=== PATIENT | female | born 1930 | race Caucasian/White ===

== ENCOUNTER 2016-10-03 19:05 | Emergency (ER) | payer MEDICARE ==
[~2016-10-03] VITALS: Ht 160 cm; Wt 90.9 kg
[~2016-10-03 19:05] MED LIST: ALBU2.5V4 INHALATION; ALBU8.5H2 INHALATION; ARFO15VI2 IH; ASPI81TA3 PO; BUDE0.5A2 INHALATION; CALC-1034 PO; CETI10CA PO; CHOL200025 PO; CYAN500T53 SL; DIME25TA2 PO; FAMO20TA4 PO; FLUT9.9S NS; GABA-502 PO; HYDR-4003 PO; LOSA50TA37 PO; MULT1CAP33 PO; POLY17PO6 PO; PRAV40TA PO; PROP20TA5 PO; TIOT18CA3 IH
[2016-10-03 19:10] VITALS: BP 174/90; PULSE 88; RESP 20; O2SAT 98
[2016-10-03] MEDS ORDERED: Nitroglycerin 2% 1 Gm Ointment TOPICAL ONE (19:40)
[2016-10-03] MEDS ORDERED: Albuterol-Ipratropium 3 mL Inhalation Solution NEB ONE (19:40)
--- NOTE | 2016-10-03 19:50 | ED.REPORT ---
HPI-Dyspnea / Wheezing Date of Service Oct 03, 2016 ED Provider: Katherine Kolb MD 86 year old female with a hx of pacemaker, DM, COPD and former smoker who presents to the ED via EMS from urgent care due to progressively worsening SOB for 3-4 days. SOB is exacerbated with any exertion. She has an associated productive cough with clear sputum and nasal congestion. She has lower extremity edema which has been worsening. Pt denies fever, chills, pain and N/V/ D. Pt was seen initially at urgent care where she had a chest x-ray. Concern for bronchitis vs. CHF vs. PNA. Nursing Notes Stated Complaint: COUGH/SENT FROM URGENT CARE Chief Complaint: Respiratory Complaints Nursing Notes Reviewed: Yes Allergies: Coded Allergies: Penicillins (Verified Allergy, Severe, Hives, facial swelling, 06/13/16) Scheduled Albuterol HFA (Proair HFA) 8.5 Gm Hfa.aer.ad 2 PUFFS INHALATION Q4H Arformoterol Tartrate (Brovana) 15 Mcg/2 Ml Vial.neb 15 MCG IH BID Aspirin Chew (Aspirin Chew) 81 Mg Tablet 324 MG PO DAILY Budesonide Neb Soln (Budesonide Neb Soln) 0.5 Mg/2 Ml Neb 0.5 MG INHALATION BID Calcium Carbonate/Vitamin D3 (Calcium 600 + Vit D3 400 Tab) 600 Mg-400 Tablet 1 EACH PO DAILY Cetirizine HCl (Zyrtec) 10 Mg Capsule 10 MG PO QAM Cholecalciferol (Vitamin D3) (Vitamin D3) 2,000 Unit Tablet 2,000 UNIT PO QAM Famotidine (Famotidine) 20 Mg Tablet 20 MG PO BID Gabapentin (Gabapentin) 300 Mg Capsule 300 MG PO QAM Gabapentin (Gabapentin) 300 Mg Capsule 600 MG PO HS Losartan Potassium (Losartan Potassium) 50 Mg Tablet 25 MG PO BID Multivitamin (Multivitamins) 1 Each Capsule 1 EACH PO QAM Polyethylene Glycol 3350 (Miralax) 17 Gm Powd.pack 17 GM PO DAILY Pravastatin (Pravastatin) 40 Mg Tablet 20 MG PO HS Prednisone (PredniSONE) 20 Mg Tablet 40 MG PO DAILY Propranolol HCl (Propranolol HCl) 20 Mg Tablet 40 MG PO BID Tiotropium [place] (Spiriva) 18 Mcg Cap.w.dev 18 MCG IH DAILY at 2PM Scheduled PRN Albuterol Neb Soln (Albuterol Neb Soln) 2.5 Mg/3 Ml Vial.neb 2.5 MG INHALATION Q4H PRN PRN For Shortness of Breath Dimenhydrinate (Dramamine) 25 Mg Tab.chew 50 MG PO BID PRN PRN For Nausea Hydrocodone-Acetaminophen 5-325 mg (Hydrocodone-Acetaminophen 5-325 mg) 1 Each Tablet 1 TABLET PO Q6H PRN PRN For Pain Miscellaneous Medications Cyanocobalamin (Vitamin B-12) (Vitamin B-12) 500 Mcg Tab.subl 1,000 MCG SL Fluticasone Propionate (Flonase Allergy Relief) 50 Mcg/Actuation [place].susp 9.9 ML NS General Time Seen by MD: 19:18 Chief Complaint Shortness of breath Hx Obtained From: Patient, EMS Arrived By: Ambulance Onset Occurred: 4 days ago Symptom Duration: Since onset Location: : None Severity: Current: No pain currently Associated with: Reports: Cough, Leg swelling, Nasal congestion, Denies: Fever Pertinent Negative: Relieved by nothing Recent Healthcare: Recent doctor visit Past Medical History Past Medical History Notes: Rn Office: Dr. Ferreira Past Medical History 1. Coronary artery disease. 2. Chronic obstructive pulmonary disease. 3. Diabetes mellitus, type 2. 4. TIA 2014 5. Hypertension 6. Hyperlipidemia 7. Essential tremor 8. 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 Reports: Stroke Past Surgical History Pacemaker - 2006 Complete cardiac cath PTCA Reports: Appendectomy, Cholecystectomy, Tonsillectomy Reports: Tubal ligation Family History Noncontributory Smoking History Former Smoker Social History Alcohol Use: Denies alcohol use Drug Use: Denies drug use Other Social History: Lives alone, , Local resident Ambulatory Status Independent Review of Systems Basic Review of Systems GI: No abdominal pain, No anorexia, No nausea, No vomiting Neurologic: NL mental status Psychiatric: Normal thought content Constitutional: Denies: Chills, Fever Ears / Nose / Throat: Reports: Nasal congestion Respiratory: Reports: Dyspnea on exertion, Prod cough, clear, Shortness of breath Cardiovascular: Reports: Dyspnea on exertion, Edema, Denies: Chest pain Complete sys rev & neg: except as marked. Physical Exam Initial Vital Signs Vital Signs (First) Date Time Temp Pulse Resp B/P Pulse Ox O2 Delivery O2 Flow Rate FiO2 10/03/16 19:10 36.8 88 20 174/90 98 10/03/16 21:06 Nasal Cannula 2 Initial VS: Reviewed, Vital signs abnormal Head / Eyes: Atraumatic, Normocephalic, PERRL ENT: Mucous membranes moist, Conjunctiva normal, No scleral icterus Abdomen / GI: Soft, Non-tender Extremities: Vascular intact, Neuro intact Skin: Warm, Dry, No cyanosis Neurologic: Alert, Oriented, Nonfocal Psychiatric: Mood/affect normal, Behavior normal, Normal thought content General/Constitutional: Awake, Alert Neck: Supple, Full range of motion Respiratory / Chest: No respiratory distress Wheezing / Retractions: Positive: Wheezing expiratory Rales / Rhonchi: Positive: Rales bilateral bases, Rhonchi diffuse Cardiovascular: Heart rate NL, Regular rhythm, Heart sounds NL, Peripheral circulation NL Interpretation & Diagnostics Lab Results Interpretation Result Diagram: 10/03/16203310/03/162033 Test 10/03/16 20:34 White Blood Count 4.9th/mm3 (3.8-10.1) Red Blood Count 4.11mil/mm3 (3.90-5.20) Hemoglobin 11.5g/dL (12.0-15.6) Hematocrit 36.4% (35.0-46.0) Mean Corpuscular Volume 88.6fL (81-100) Mean Corpuscular Hemoglobin 28.0pg (27.0-35.0) Mean Corpuscular Hemoglobin Concent 31.6% (32.0-37.0) Red Cell Distribution Width 15.0% (12.3-15.4) Platelet Count 149bil/L (150-400) Neutrophils (%) (Auto) 64.0% (40-74) Lymphocytes (%) (Auto) 17.0% (14-46) Monocytes (%) (Auto) 15.2% (4-12) Eosinophils (%) (Auto) 3.2% (0-5) Basophils (%) (Auto) 0.4% (0-3) Sodium Level 139mEq/L (134-144) Potassium Level 4.9mEq/L (3.5-5.2) Chloride Level 103mEq/L (97-108) Carbon Dioxide Level 25mmol/L (18-29) Blood Urea Nitrogen 17mg/dL (8-27) Creatinine 0.92mg/dL (0.57-1.00) Estimat Glomerular Filtration Rate 83mL/min (>59) Glucose Level 111mg/dL (60-99) Calcium Level 9.0mg/dL (8.5-10.1) Magnesium Level 2.1mg/dL (1.6-2.6) Total Bilirubin 0.4mg/dL (0.0-1.2) Aspartate Amino Transf (AST/SGOT) 39U/L (0-50) Alanine Aminotransferase (ALT/SGPT) 34U/L (0-32) Alkaline Phosphatase 239U/L (25-165) Troponin T < 0.010ug/L (0.0-0.011) Pro-B-Type Natriuretic Peptide 116.4pg/mL (0-738) Total Protein 7.2g/dL (6.4-8.4) Albumin 3.4g/dL (3.4-5.0) Hold Chan Top Tube Received (Received) General Lab Results Interp 1: Labs reviewed ECG Interpretation ECG Interpretation: Atrial-sensed ventricular paced rhythm with a rate of 96. Time: 19:34 Interpreted by: ED physician Re-Eval/Medical Decision Med Decision/Clinical Course The patient presents with shortness of breath and symptoms of upper respiratory infection. She was feeling improved with symptomatic treatment here. Differential diagnoses considered were bronchitis, pneumonia, pulmonary embolus , and congestive heart failure. Re-Evaluation/Progress : Time of Eval: 22:32 Patient Status: Condition improved Re-Evaluation/Progress Note: Updated pt of labs, ECG results. Discussed plan for discharge and follow up. All questions addressed. Counseled Regarding: Diagnosis, Lab results, Need for follow-up, When/why to return to ED Discharge & Departure Impression: Primary Impression: URI (upper respiratory infection) URI type: unspecified URI Qualified Code: J06.9 - Acute upper respiratory infection, unspecified Additional Impression: COPD exacerbation Disposition: Home Discharge Condition All VS Reviewed: Yes Condition: Improved Additional Instructions: Take next dose of prednisone tomorrow evening. Make sure you take this with food. Increase your Albuterol nebulizer to up to every 4 hours as needed. Seek care for fever, worsening of breathing, or for any new or concerning symptoms. Make sure you make a follow up appointment with your doctor in 1 week. Rx sent to [facility] Referrals: Jayce Gifford MD (PCP) Scribe Attestation Portions of this note were transcribed by Muriel Chapman. I, (Dr. Kolb) personally performed the history, physical exam and medical decision-making; I reviewed and confirmed the accuracy of the information in the transcribed note. Signed by: Muriel Chapman. 10/03/2016, 9016 copies to: Jayce Gifford MD, Jena M MD Oct 03, 2016 19:50 Muriel Chapman Oct 03, 2016 20:56
[2016-10-03 20:42] LABS: BASOPHILS % (AUTO) 0.4 % (0-3); EOSINOPHILS % (AUTO) 3.2 % (0-5); MONOCYTES % (AUTO) 15.2 % (4-12); Mean Corpuscular Volume 88.6 fL (81-100); Platelet Count 149 bil/L (150-400)
[2016-10-03] MEDS ORDERED: HYDROcodone-APAP 5-325 mg Tablet PO ONE (21:00)
[2016-10-03 21:06] VITALS: BP 137/73; PULSE 84; RESP 19; O2SAT 99
[2016-10-03 21:08] VITALS: PULSE 92; RESP 20; O2SAT 98
[2016-10-03 21:18] LABS: Magnesium 2.1 mg/dL (1.6-2.6)
[2016-10-03 21:28] LABS: TROPONIN T < 0.010 ug/L (0.0-0.011)
[2016-10-03] MEDS ORDERED: Albuterol 2.5 mg/3 mL Inhalation Solution NEB ONE (22:05)
[2016-10-03] MEDS ORDERED: predniSONE 20 mg Tablet PO ONE (22:05)
[2016-10-03 22:14] VITALS: BP 130/54; PULSE 95; RESP 14; O2SAT 96
[2016-10-03] MEDS ORDERED: PRE20 PO (22:38)
[2016-10-03 23:22] VITALS: BP 117/47; PULSE 90; RESP 18; O2SAT 94
== END 2016-10-03 23:23 | disposition home or self-care (01) ==
LOC: SED 19:05
DX: J06.9 Acute upper respiratory infection, unspecified (principal); J44.1 Chronic obstructive pulmonary disease with (acute) exacerbation; I25.10 Atherosclerotic heart disease of native coronary artery without angina pectoris; I10 Essential (primary) hypertension; E11.9 Type 2 diabetes mellitus without complications; Z86.73 Personal history of transient ischemic attack (TIA), and cerebral infarction without residual deficits; Z95.0 Presence of cardiac pacemaker; Z87.891 Personal history of nicotine dependence; Z79.82 Long term (current) use of aspirin; Z88.0 Allergy status to penicillin
CPT/HCPCS: 36415; 80053; 83735; 83880; 84484; 85025; 93005; 94664; 99285; J7620

== ENCOUNTER 2016-11-09 01:32 | Inpatient (IN) | payer MEDICARE ==
[~2016-11-09] VITALS: Ht 160 cm; Wt 90.9 kg
[2016-11-09] VITALS (14 sets, daily range): BP systolic 89–166; BP diastolic 50–95; PULSE 69–106; RESP 16–26; O2SAT 92–97
[~2016-11-09 01:32] MED LIST changes: +PRE20 PO
--- NOTE | 2016-11-09 01:42 | ED.REPORT ---
HPI-Chest Pain 40 and Over Date of Service Nov 09, 2016 ED Provider: Arleth AvilezO. An 86 year old female with a history of COPD, diabetes, hypertension, CVA, and CAD s/p pacemaker placement presents to the ED via EMS with right-sided chest pain onset yesterday. The pain is exacerbated on breathing with radiation to her back and down her right arm. The patient also reports cough. She was seen in the ED one month ago with an upper respiratory infection. Nursing Notes Stated Complaint: RIGHT SIDE PAIN Chief Complaint: Chest Pain-Non Cardiac Nature Nursing Notes Reviewed: Yes Allergies: Coded Allergies: Penicillins (Verified Allergy, Severe, Hives, facial swelling, 11/09/16) Scheduled Arformoterol Tartrate (Brovana) 15 Mcg/2 Ml Vial.neb 15 MCG IH BID Aspirin Chew (Aspirin Chew) 81 Mg Tablet 324 MG PO DAILY Budesonide Neb Soln (Budesonide Neb Soln) 0.5 Mg/2 Ml Neb 0.5 MG INHALATION BID Calcium Carbonate/Vitamin D3 (Calcium 600 + Vit D3 400 Tab) 600 Mg-400 Tablet 1 EACH PO DAILY Cetirizine HCl (Zyrtec) 10 Mg Capsule 10 MG PO QAM Cholecalciferol (Vitamin D3) (Vitamin D3) 2,000 Unit Tablet 2,000 UNIT PO QAM Famotidine (Famotidine) 20 Mg Tablet 20 MG PO BID Fluticasone Propionate (Flonase Allergy Relief) 50 Mcg/Actuation [place].susp 1 SPRAY NS DAILY Gabapentin (Gabapentin) 300 Mg Capsule 300 MG PO QAM Gabapentin (Gabapentin) 300 Mg Capsule 600 MG PO HS Losartan Potassium (Losartan Potassium) 50 Mg Tablet 25 MG PO BID Multivitamin (Multivitamins) 1 Each Capsule 1 EACH PO QAM Pravastatin (Pravastatin) 40 Mg Tablet 20 MG PO HS Propranolol HCl (Propranolol HCl) 20 Mg Tablet 40 MG PO BID Tiotropium [place] (Spiriva) 18 Mcg Cap.w.dev 18 MCG IH DAILY at 2PM Scheduled PRN Albuterol HFA (Proair HFA) 8.5 Gm Hfa.aer.ad 2 PUFFS INHALATION Q4H PRN PRN For Shortness of Breath Albuterol Neb Soln (Albuterol Neb Soln) 2.5 Mg/3 Ml Vial.neb 2.5 MG INHALATION Q4H PRN PRN For Shortness of Breath Dimenhydrinate (Dramamine) 25 Mg Tab.chew 50 MG PO BID PRN PRN For Nausea Hydrocodone-Acetaminophen 5-325 mg (Hydrocodone-Acetaminophen 5-325 mg) 1 Each Tablet 1 TABLET PO Q6H PRN PRN For Pain Miscellaneous Medications Cyanocobalamin (Vitamin B-12) (Vitamin B-12) 500 Mcg Tab.subl 1,000 MCG SL General Time Seen by MD: 01:42 Chief Complaint Chest pain Hx Obtained From: Patient Arrived By: Ambulance Sudden in Onset?: No Onset Occurred: Yesterday Symptom Duration: Since onset Location: : Chest right Quality: Painful Radiation: : Arm right: Back Severity: Current: Moderate Severity: Maximum: Moderate Associated with: Reports: Cough, non-productive, Denies: Fever Exacerbated by: Deep breath Pertinent Negative: Relieved by nothing Context Related History: Reports: Acute coronary syndrome Recent Healthcare: Recent doctor visit Similar Sx Previous: Yes Past Medical History Past Medical History Notes: Negative Assembler: Dr. Ferreira Past Medical History 1. Coronary artery disease. 2. Chronic obstructive pulmonary disease. 3. Diabetes mellitus, type 2. 4. TIA 2014 5. Hypertension 6. Hyperlipidemia 7. Essential tremor 8. 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 Reports: Stroke Past Surgical History Pacemaker - 2006 Complete cardiac cath PTCA Reports: Appendectomy, Cholecystectomy, Tonsillectomy Reports: Tubal ligation Family History Noncontributory Smoking History Former Smoker Social History Alcohol Use: Denies alcohol use Drug Use: Denies drug use Other Social History: Lives alone, , Local resident Ambulatory Status Independent Review of Systems Respiratory: Reports: Non-productive cough, Denies: Shortness of breath Cardiovascular: Reports: Chest pain (Right) GI: Denies: Vomiting Musculoskeletal: Reports: Back pain (Right), Extremity pain (Right arm) Complete sys rev & neg: except as marked. Physical Exam Initial Vital Signs Vital Signs (First) Date Time Temp Pulse Resp B/P Pulse Ox O2 Delivery O2 Flow Rate FiO2 11/09/16 01:43 37.3 106 22 166/75 93 Room Air Initial VS: Reviewed Head / Eyes: Atraumatic, Normocephalic ENT: Conjunctiva normal, No scleral icterus Neck: Supple, Full range of motion Skin: Warm, Dry, No cyanosis Neurologic: Alert, Oriented, Nonfocal Psychiatric: Mood/affect normal, Behavior normal, Normal thought content General/Constitutional: Awake, Alert, No acute distress Respiratory / Chest: Breath sounds NL, Breath sounds = bilat, No respiratory distress Chest Wall / Ribs: Positive: Chest tender upper L Splinting with respirations Cardiovascular: Regular rhythm, Heart sounds NL Heart Rate / Rhythm: Positive: Tachycardia Abdomen: Soft, Non-tender Interpretation & Diagnostics Interpretation & Diagnostics: INFLUENZA NEGATIVE Lab Results Interpretation Result Diagram: 11/09/16 0530 11/09/16 0157 Test 11/09/16 01:57 Prothrombin Time 10.7sec (8.1-12.5) Prothromb Time International Ratio 1.00ratio D-Dimer 7.5mg/L (<0.50) Sodium Level 134mEq/L (134-144) Potassium Level 4.8mEq/L (3.5-5.2) Chloride Level 97mEq/L (97-108) Carbon Dioxide Level 25mmol/L (18-29) Blood Urea Nitrogen 15mg/dL (8-27) Creatinine 0.92mg/dL (0.57-1.00) Estimat Glomerular Filtration Rate 83mL/min (>59) Glucose Level 172mg/dL (60-99) Calcium Level 8.7mg/dL (8.5-10.1) Magnesium Level 1.9mg/dL (1.6-2.6) Total Bilirubin 0.6mg/dL (0.0-1.2) Aspartate Amino Transf (AST/SGOT) 54U/L (0-50) Alanine Aminotransferase (ALT/SGPT) 55U/L (0-32) Alkaline Phosphatase 175U/L (25-165) Troponin T 0.010ug/L (0.0-0.011) Total Protein 7.4g/dL (6.4-8.4) Albumin 3.5g/dL (3.4-5.0) ECG Interpretation ECG Interpretation: Atrial-sensed ventricular-paced rhythm rate 103 Time: 01:56 Interpreted by: ED physician Rhythm Strip Interpretation : Rhythm Strip Interpretation: Intraventricular conduction delay Time: 02:00 Rhythm Strip Interpretation: Interpreted by me, Sinus tachycardia X-Ray Chest Interpretation Chest Xray Interpretation: Chronic COPD changes View: Portable, 1 view Interpretation / Wet Read by: Wet read ED physician Re-Eval/Medical Decision Med Decision/Clinical Course Patient presents with pleuritic right-sided chest pain. She is found to have tachycardic and splinting on respirations. Chest wall is not very tender. X- ray looks like chronic COPD. She does have a markedly elevated d-dimer. CT scan is consistent with pulmonary embolism. No contraindications to heparin. Heparin will be ordered. Plan for hospital admission. Currently tolerating a pulmonary embolism hemodynamically well. She is not hypotensive or hypoxic. Discharge & Departure Shift Change Sign-Out Laboratory Evaluation: Lab evaluation discussed Response to Therapy: Improved Primary Impression: Pulmonary embolism Pulmonary embolism type: other Chronicity: acute Acute cor pulmonale presence: without acute cor pulmonale Qualified Code: I26.99 - Other pulmonary embolism without acute cor pulmonale Discharge Condition All VS Reviewed: Yes Condition: Stable Referrals: Jayce Gifford MD (PCP) Scribe Attestation Portions of this note were transcribed by Brooke Costello. I, Dr. Martin, personally performed the history, physical exam, and medical decision-making; I reviewed and confirmed the accuracy of the information in the transcribed note. Signed by: Reji Garg, 11/09/2016, 03:17 copies to: Jayce Gifford MD, Todd P DO Nov 09, 2016 01:42 BROOKE COSTELLO Nov 09, 2016 01:53 View: Portable, 1 view Interpretation / Wet Read by: Vicente singh ED physician Re-Eval/Medical Decision Med Decision/Clinical Course Patient presents with pleuritic right-sided chest pain. She is found to have tachycardic and splinting on respirations. Chest wall is not very tender. X- ray looks like chronic COPD. She does have a markedly elevated d-dimer. CT scan is consistent with pulmonary embolism. No contraindications to heparin. Heparin will be ordered. Plan for hospital admission. Currently tolerating a pulmonary embolism hemodynamically well. She is not hypotensive or hypoxic. Discharge & Departure Shift Change Sign-Out Laboratory Evaluation: Lab evaluation discussed Response to Therapy: Improved Primary Impression: Pulmonary embolism Pulmonary embolism type: other Chronicity: acute Acute cor pulmonale presence: without acute cor pulmonale Qualified Code: I26.99 - Other pulmonary embolism without acute cor pulmonale Discharge Condition All VS Reviewed: Yes Condition: Stable Referrals: Jayce Gifford MD (PCP) Scribe Attestation Portions of this note were transcribed by Brooke Costello. I, Dr. Martin, personally performed the history, physical exam, and medical decision-making; I reviewed and confirmed the accuracy of the information in the transcribed note. Signed by: Reji Garg, 11/09/2016, 03:17 copies to: Jayce Gifford MD, Todd P DO Nov 09, 2016 01:42 BROOKE COSTELLO Nov 09, 2016 01:53
[2016-11-09 02:10] LABS: BASOPHILS % (AUTO) 0.1 % (0-3); EOSINOPHILS % (AUTO) 0.6 % (0-5); MONOCYTES % (AUTO) 14.2 % (4-12); Mean Corpuscular Hemoglobin 27.5 pg (27.0-35.0); Mean Corpuscular Volume 86.4 fL (81-100); NEUTROPHILS % (AUTO) 73.2 % (40-74); Platelet Count 154 bil/L (150-400)
[2016-11-09 02:37] LABS: TROPONIN T 0.01 ug/L (0.0-0.011)
[2016-11-09 02:42] LABS: D-DIMER 7.5 mg/L (<0.50)
[2016-11-09 02:48] LABS: Magnesium 1.9 mg/dL (1.6-2.6)
[2016-11-09] MEDS ORDERED: Heparin 5,000 Unit/mL Inj IVPUSH PRN (03:35)
[2016-11-09] MEDS: Heparin 25K Unit/500mL 0.45 NS 25,000 UNIT in IV Premix 1 EACH IV SCH (04:00)
[2016-11-09] MEDS ORDERED: Alum-Mag Hydrox-Simeth 30 mL Suspension PO PRN (04:25)
[2016-11-09] MEDS ORDERED: Polyethylene Glycol (PEG) 17 Gm Powder PO PRN (04:25)
[2016-11-09] MEDS ORDERED: Ondansetron 2 mg/mL 2 mL Inj IVPUSH PRN (04:25)
--- NOTE | 2016-11-09 05:19 | PCM.HPMED ---
Subjective Date of Service Nov 09, 2016 Primary Provider: Admitting Physician: Damien Perez MD Primary Care Physician: Jayce Gifford MD Attending Physician: Damien Perez MD Chief Complaint: Right sided pain History of Present Illness: Patient is a pleasant 86-year-old female with COPD, type 2 diabetes mellitus, hypertension and CAD presenting with right sided thoracic pain. Patient reports onset of the pain yesterday (11/08/2016) at approximately 20:00. The patient states the pain is just inferior to her right chest and exacerbated with breathing and movement. Patient reports a cough since October with production of thick, off-yellow sputum. The pain prompted the patient to summon EMS and she was brought to [facility] ED for further evaluation. In the ED, CT chest angiogram was performed and identified pulmonary emboli in the right lower lobe involving several segmental branches and the right lower lobe pulmonary artery. Patient denies hemoptysis, chest pain, shortness of breath, fever, chills, worsening lower extremity swelling. Patient reports being more sedentary over the past several months due to right hip pain. She is scheduled to undergo a hip replacement at the end of this month. Patient denies family history of coagulopathy and denies any long car rides or airplane flights. In the ED, vitals: temp 37.3, HR 106, RR 22 satting 93%, BP 166/75. Notable labs : mild transaminitis with AST 54, ALT 55 and alkaline phosphatase 175. D-dimer 7.5. Review of Systems: Review of Systems: A comprehensive review of systems was conducted with the patient and found to be negative except as above in the History of Present Illness. Allergies Coded Allergies: Penicillins (Verified Allergy, Severe, Hives, facial swelling, 11/09/16) Home Medications Albuterol 2 puffs every 4-6 hours PRN ASA 325mg daily Brovana 15mcg/2mL inhale BID Calcium 600 + Vitamin D3 600mg daily Famotidine 20mg BID Neurontin 300mg in AM, 600mg QHS Losartan 25mg daily Pravastatin 20mg daily Propranolol 40mg BID Spiriva 18mcg inhaled daily Vitamin B12 1000mcg daily Vitamin D3 2000u daily Zyrtec 10mg daily PMH COPD Type 2 diabetes mellitus Hypertension History of CVA Coronary artery disease Third-degree AV block s/p PPM . Surgical History Pacemaker placement Appendectomy Tonsillectomy Tubal ligation Cholecystectomy . Family History Mother at 74 years old from cardiac cause Father at 86 years old from unknown cause Social History Occupation: Former retail visual merchandiser Hx Alcohol Use: No Hx Substance Use: No Hx Tobacco Use: No Smoking Status: Former Smoker Living Arrangement: Alone Exam Vital Signs Vital Sign - Last Date Time Temp Pulse Resp B/P Pulse Ox O2 Delivery O2 Flow Rate FiO2 11/09/16 04:05 97 22 120/51 95 Room Air 11/09/16 01:43 37.3 Exam General: [id number]-[id number] distress, well-developed, well-nourished, appropriately interactive HEENT: Normocephalic, atraumatic. External ears without defect. Pupils equal, round, and reactive to light. Anicteric sclerae, moist conjunctivae, and no lid lag. Oropharynx free of erythema and cobble stoning with moist mucosa. Missing upper teeth. Lower with several missing teeth. Neck: Supple. No lymphadenopathy or thyromegaly. Cardiovascular: Distant heart sound. Regular rate and rhythm with no murmurs, rubs, or gallops appreciated Pulmonary: Bibasilar crackles. Patient grimaces from exquisite pain to right thorax on inspiration Abdomen: Bowel tones present. Soft, nontender, nondistended. Extremities: Mild lower extremity pitting edema just above the ankles bilaterally. Skin: Several spots of ecchymosis on upper extremities bilaterally. Normal temperature, turgor, and texture; no rash, ulcers, or subcutaneous nodules appreciated. Neurological: Cranial nerves grossly intact. Psychiatric: Normal mood and affect. Alert and oriented to person, place, and time. Lab and Diagnostics Result Diagram: 11/09/16 01511/09/16 0157 X-Rays, CTs and MRIs Exam date: 11/09/2016 CT PULMONARY ANGIOGRAM CONCLUSION: Pulmonary emboli in the right lower lobe involving several segmental branches and the right lower lobe pulmonary artery. Minimal associated right pleural effusion. Assessment & Plan Patient is a pleasant 86-year-old female with COPD, type 2 diabetes mellitus, hypertension and CAD presenting with right sided thoracic pain and admitted for pulmonary emboli. 1. Acute right sided pulmonary emboli. Present on admission. Active -CT chest angio shows pulmonary emboli in the right lower lobe involving several segmental branches and the right lower lobe pulmonary artery -Uncertain etiology but likely provoked from being sedentary due to hip pain and recent URI -Heparin gtt PE/DVT protocol 2. Transaminitis and elevated alkaline phosphatase, chronic. Present on admission. Active -Outpatient records show mild elevations since 2010 -Uncertain etiology -Continue to follow with CMP 3. Non-insulin using Type 2 diabetes mellitus. Present on admission -HbA1c 6.4% (05/10/2016) -Bedside blood glucose checks 4. Coronary artery disease, chronic. Present on admission -Continue home dose statin, ASA 5. Hypertension, chronic. Present on admission -Continue home antihypertensives 6. COPD, chronic. Present on admission -Continue home inhaler and nebulizers Patient Status: Patient is admitted under inpatient status with expected length of stay greater than 2 midnights due to severity of presenting symptoms, risk of adverse event, and complexity of treatment plan. VTE Prophylaxis: Other (Heparin gtt) Resuscitation Status: CPR: Attempt Resuscitation Attending Statement The patient was seen and examined together with Dr. Nunez on 11/09 and I agree with the history, exam and plan as outlined in the note above. Alberto Nunez DO Nov 09, 2016 04:41 Damien Perez MD Nov 09, 2016 19:04
[2016-11-09] MEDS: HYDROmorphone 1 mg/mL Inj IVPUSH PRN (05:43)
[2016-11-09 06:17] LABS: BASOPHILS % (AUTO) 0.2 % (0-3); EOSINOPHILS % (AUTO) 0.4 % (0-5); MONOCYTES % (AUTO) 13.6 % (4-12); Mean Corpuscular Hemoglobin 27.2 pg (27.0-35.0); Mean Corpuscular Volume 87.2 fL (81-100); NEUTROPHILS % (AUTO) 72.9 % (40-74); Platelet Count 146 bil/L (150-400)
--- NOTE | 2016-11-09 07:03 | NUR ---
Admit note: Pt admitted from ER, able to ambulate to bed with one assist. Reporting pain to right chest at "15/10". Morphine was given in the ER and not effective per pt. Dilaudid was ordered and given x1, pt stated maybe a little better, "not much"; but was able to fall asleep for brief periods, with sharp pain awaking her. Heparin gtt infusing, started in the ER. Alert and oriented x3. Oriented to room and call light, instructed to call for needs.
[2016-11-09] MEDS: Pantoprazole 20 mg ER24 Tablet PO SCH ×2 (07:37→17:06)
[2016-11-09] MEDS: Calcium Carbonate (Oyster Shell) 500 mg Tablet PO SCH (07:37)
[2016-11-09] MEDS: HYDROcodone-APAP 5-325 mg Tablet PO PRN ×3 (07:51→19:33)
[2016-11-09] MEDS: Arformoterol 15 mCg/2 mL Inhalation Solution NEB SCH ×2 (08:09→20:31)
[2016-11-09] MEDS ORDERED: Tiotropium 18mcg/Cap 5 Capsule Inhaler Kit INHALATION SCH (08:30)
--- NOTE | 2016-11-09 09:36 | DRSVH ---
PROCEDURE: X-RAY CHEST ONE VIEW, PORTABLE ([id number]) INDICATIONS: chest pain, right sided TECHNIQUE: One view of the chest was acquired. COMPARISON: [facility], CR, XR CHEST 1VW (PORTABLE), 03/31/2016, 15:52. FINDINGS: Surgical changes and devices: Stable positioning of dual chamber cardiac pacer. Lungs and pleura: No pleural effusions or pneumothorax. Lungs are clear. Mediastinum: Mediastinal contours appear normal. Heart size is normal. Bones and chest wall: No suspicious bony lesions. Overlying soft tissues appear unremarkable. IMPRESSION: No acute cardiopulmonary disease. Dictated by: Charan Garcia RRA Interpreted: Bree Valencia MD on 11/09/2016 at 9:35 Transcribed by: DESTINEY on 11/09/2016 at 9:35 Approved by: Bree Valencia MD, PhD on 11/09/2016 at 17:05
--- NOTE | 2016-11-09 09:42 | DRSVH ---
PROCEDURE: CT ANGIO CHEST PULMONARY EMBOLISM ([id number]) INDICATIONS: pleuritic chest pain TECHNIQUE: After the administration of intravenous contrast, 2 mm thick sections acquired from the pulmonary api jesusita to the posterior costophrenic angles. 3-dimensional maximum intensity projection (MIP) coronal a nd sagittal reformats were then acquired through the thorax. For radiation dose reduction, the follo wing was used: automated exposure control, adjustment of mA and/or kV according to patient size. COMPARISON: None. FINDINGS: Image quality: Excellent. Pulmonary arteries: There are intraluminal filling defects involving the right lower lobe lobe artery and segmental arteries, consistent with pulmonary embolism. Lungs and pleura: There is a small right pleural effusion. There is a 5 mm groundglass nodule in the right middle lobe. No pleural effusions or pneumothorax. Central and peripheral airways are patent. Mediastinum: Heart size is mildly increased. There is a small pericardial effusion. No mediastinal or hilar adenopathy. Thoracic aorta is normal in caliber and enhancement. Esophagus is normal in ca liber, without hiatal hernia. Bones and chest wall: No suspicious bony lesions. Ribs and thoracic spine appear intact throughout. Thyroid gland is heterogeneous. No axillary or supraclavicular adenopathy. Abdomen: Visualized upper abdominal solid organs appear normal in the early arterial phase of enhanc ement. IMPRESSION: 1. Central pulmonary emboli involving the right lower lobe lobar artery and segmental arteries. 2. A small right pleural effusion. 3. A 5 mm groundglass nodule in the right middle lobe. 4. Mild cardiomegaly and small pericardial effusion. No significant discrepancy with the shift superintendent radiology preliminary report. Fleischner Society criteria for SUB-SOLID lung nodule followup. Solitary pure ground-glass nodules5 mm or lessNo followup needed. >5 mm3 mo follow-up CT to confirm persistence. Then annual CT for 3 years. Part-solid nodules3 mo follow-up CT to confirm persistence . If persistent with solid component <5 mm, annual CT for at least 3 years. If solid component is 5 mm or more, biopsy or surgical resection. Consider PET-CT for lesions > 10 mm. Multiple sub-solid nodulesPure ground glass nodules [address] at 2 and 4 years. Pure ground glass nodules >5 mm without dominant lesion. [address] to confirm persistence, then annual followup CT for at least 3 years. Dominant nodule(s) with part-solid or solid component. [address] to confirm persistence. If persistent, consider biopsy or surgical resection, wing if lesions have >5 m m solid component. Dictated by: Travis Vasquez M.D. on 11/09/2016 at 9:29 Approved by: Travis Vasquez M.D. on 11/09/2016 at 9:41
--- NOTE | 2016-11-09 13:28 | PCM.CONPHA ---
Subjective Right sided pain Reason for Pharmacy Consult: Anticoagulation Management Assessment/Plan Assessment/Plan Warfarin Management by Pharmacy Indication: PE CHADS2-VASc: 6 Home Dose: New Start INR Goal: 2-3 Duration: Unknown Wt: 90.9 kg Anticoagulation Trends Lab Date Result Dose INR 11/09/16 1.00 Therapeutic bridge therapy: Heparin gtt Assessment/Plan - New start this admission with for PE. On therapeutic bridge with heparin gtt. -Will initiate warfarin 2.5 mg tonight. I chose this dose given pts age, aspirin use, CVA hx, and slight increase in LFTs. -Pharmacy to monitor INR/CBC/signs of bleeding while inpatient. Thanks, Paco Zelaya Pharm.D. Paco Zelaya Nov 09, 2016 13:28
--- NOTE | 2016-11-09 13:55 | NUR ---
Social Work- Initial Assessment Data: See Initial Assessment. Pt is a 86 year old female who was admitted 11/09/16 for PE per H&P. Pt's insurance is Medicare and SSEV Supplement and PCP is Dr. Balta MD. EMR Reviewed. SW met with pt at bedside to discuss discharge planning, SW role explained. Pt resides in apartment alone where she remains independent with ADLs. Pt receives driving assistance from family/friends as well as [employer]. Pt has no HH or SNF history. Pt has no shelter care or VA benefits. Pt has not completed DPOA/Advanced Directive paperwork, SW explained DPOA/AD and encouraged a completed copy to be brought into the hospital. SW provided phone number and plan on white board. SW will continue to follow as needs arise. Assessment: Pt who is independent at baseline. Plan: Pt likely to discharge home with no HH. SW continue to follow STEW Vyas Addendum: 11/09/16 at 1405 by GERARDO ROSALES Amended: Links added.
[2016-11-09] MEDS: Tiotropium 18mcg/Cap 5 Capsule Inhaler Kit INHALATION SCH (14:00)
--- NOTE | 2016-11-09 16:39 | DRSVH ---
[facility] [address] [place] [place] [address] Echocardiogram Report Name: DINORA HUSSEIN JStudy Date: 11/09/2016 Height: 63 in Hospital Exam Location: [facility] Weight: 200 lb Gender: Female BSA: 1.9 m2 : 1930 Age: 86 yrs BP: 89/51 mmHg Reason For Study: PULMONARY EMBOLISM Ordering Physician: HOSPITALIST [facility] Performed By: Ozzie Emerson Referring Physician: Channing HINES Interpretation Summary 1) Normal left ventircular thickness, size, wall motion, and systolic function (EF 60-65%). 2) Upper normal right ventricular size with low normal systolic function. 3) Mild to moderate tricuspid regurgitation. 4) Pulmonary hypertension present, systolic pulmonary artery pressure estimated at 59 mmHg assuming a right atrial pressure of 8 mm Hg. 5) Compared to the Echo on 06/23/2015, pulmonary artery pressures are higher on today's study. Procedure: A two-dimensional transthoracic echocardiogram with color flow and Doppler was performed. The study quality was technically good. Comparison is made with the echocardiogram of 06/23/15. The suprasternal notch views were difficult to obtain and are suboptimal in quality. The patient has a paced rhythm. Left Ventricle: The left ventricle is normal in size. There is normal left ventricular wall thickness. The ejection fraction is estimated to be 60-65%. There are no focal wall motion abnormalities. Right Ventricle: The right ventricle is at the upper limits of normal in size. Right ventricular systolic function is at the lower limits of normal. Atria: Both atria are mildly dilated. The interatrial septum is intact with no evidence for an atrial septal defect. Mitral Valve: There is mild to moderate mitral annular calcification. There is trace mitral regurgitation. Aortic Valve: The aortic valve is trileaflet. The aortic valve is slightly calcified. The aortic valve opens well. There is no aortic valve stenosis. No aortic regurgitation is present. Tricuspid Valve: The tricuspid valve is normal in structure and function. There is mild to moderate tricuspid regurgitation. The right ventricular systolic pressure is estimated at 59 mmHg assuming a right atrial pressure of 8 mm Hg. Pulmonic Valve: The pulmonic valve is normal in structure and function. There is trace pulmonic regurgitation. Great Vessels: The aortic root is normal size. The dimensions of the ascending aorta are normal. The pulmonary artery is normal size. The IVC is of normal diameter and collapses less than 50% with a sniff. This suggests a right atrial pressure of 8 mm Hg. Pericardium/ Pleura There is no pericardial effusion. There is no pleural effusion. MMode/2D Measurements & Calculations LVIDd: 4.3 cm LA dimension: 4.4 cm RA long axis Ao root diam LVIDs: 2.2 cm FS: 49.4 % LA A2 area: 23.9 cm RA area Aortic Jxn EPSS: 0.63 cm LA A4 area: 23.0 cm IVSd: 0.84 cm LA length (vol): 6.1 cm : 22.6 cm asc Aorta LVPWd: 0.88 cm LA vol: 77.0 ml RA vol: 75.6 mlDiam: 3.0 cm LA vol index RA : 39.1 mm2 IVC diam: 2.1 cm LV powell. diameter/BSA LV sys. diameter/BSA RVD1 (basal) RVD2 (mid) (cm/m^2): 2.2 (cm/m^2): 1.1 : 4.1 cm Doppler Measurements & Calculations Ao V2 max MV E max eusebio MV E/A: 0.91 TR max eusebio : 167.1 cm/sec : 113.0 cm/sec Med Peak E' Eusebio : 355.8 cm/sec Ao max P.2 mmHg MV A max eusebio TR max PG Ao mean P.7 mmHg : 124.7 cm/sec E/E' med: 24.9 : 50.6 mmHg MV P1/2t: 74.4 msec Lat Peak E' Eusebio PA V2 max : 66.2 cm/sec E/E' lat: 21.9 PA mean PG E/e' average PA Accel Time Pulm A Revs Dur : 0.05 sec MV A dur: 0.16 sec MV V2 mean MV P1/2t max eusebio Ao V2 mean PA V2 mean : 88.7 cm/sec : 125.9 cm/sec : 49.7 cm/sec MV mean P.4 mmHg Ao V2 VTI: 40.0 cmPA pr(Accel) MV V2 VTI: 36.9 cm MVA(P1/2t): 3.0 cm2 : 56.5 mmHg MV dec time: 0.25 sec Pulm A Revs Dur - MV A Dur: -0.01 msec Reading Physician:04:38 PM
--- NOTE | 2016-11-09 17:39 | NUR ---
Heparin Drip, PTT PTT draw critically high this am x2. Heparin drip stopped per protocol, hospitalist team aware. Drip started again at approx 1pm at lower rate per protocol. Family updated on plan. Next PTT draw @ 1900.
[2016-11-09] MEDS: Albuterol 2.5 mg/3 mL Inhalation Solution NEB PRN (19:27)
[2016-11-09] MEDS ORDERED: Codeine-guaiFENesin 5 mL Syrup PO PRN (20:15)
[2016-11-09] MEDS: guaiFENesin 600 mg ER12 Tablet PO SCH (20:30)
--- NOTE | 2016-11-09 20:36 | NUR ---
Pain Pt had chest pain rated at an 8 to her right side. Given 2 tabs vicodin. Pt later rated her pain at a 5. She has a constant cough which exacerbates her pain. Given 2mg IV morphine. Requested letty and jim from MD for her cough. This was ordered. Pt currently resting quietly. BP medications not given due to BP 100/50 manual. Pt denies any symptoms of dizziness Bed alarm on. Care ongoing
[2016-11-10] VITALS (11 sets, daily range): BP systolic 88–122; BP diastolic 48–62; PULSE 71–113; RESP 18–24; O2SAT 84–98
[2016-11-10] MEDS: Heparin 25K Unit/500mL 0.45 NS 25,000 UNIT in IV Premix 1 EACH IV SCH (00:42)
[2016-11-10] MEDS: HYDROcodone-APAP 5-325 mg Tablet PO PRN ×5 (01:05→21:04)
[2016-11-10] MEDS: guaiFENesin 600 mg ER12 Tablet PO SCH ×2 (01:05→21:08)
[2016-11-10] MEDS ORDERED: Codeine-guaiFENesin 10 mL Syrup PO PRN (01:23)
--- NOTE | 2016-11-10 01:24 | NUR ---
Resp Pt up to BSC to void. When she returned to bed she said, "I can't breathe." Lungs are tight/wheezes throughout. Breathing is labored. RT called for PRN albuterol treatment. Pt sitting up in bed on 2 pillows. Will cont to monitor
[2016-11-10] MEDS: Albuterol 2.5 mg/3 mL Inhalation Solution NEB PRN ×2 (01:51→20:21)
[2016-11-10 06:47] LABS: BASOPHILS % (AUTO) 0.2 % (0-3); EOSINOPHILS % (AUTO) 0.4 % (0-5); MONOCYTES % (AUTO) 15.3 % (4-12); Mean Corpuscular Hemoglobin 27.7 pg (27.0-35.0); Mean Corpuscular Volume 88.5 fL (81-100); NEUTROPHILS % (AUTO) 71.3 % (40-74); Platelet Count 126 bil/L (150-400)
[2016-11-10 07:08] LABS: INR 1.12 ratio
[2016-11-10] MEDS: Arformoterol 15 mCg/2 mL Inhalation Solution NEB SCH ×2 (07:25→20:21)
[2016-11-10 08:22] LABS: APPEARANCE,URINE HAZY (CLEAR,HAZY); COLOR,URINE YELLOW (YELLOW); OCCULT BLOOD,URINE NEGATIVE (NEGATIVE); UROBILINOGEN,URINE 0.2 mg/dL (NORMAL)
[2016-11-10] MEDS: Pantoprazole 20 mg ER24 Tablet PO SCH ×2 (09:29→21:08)
[2016-11-10] MEDS: Calcium Carbonate (Oyster Shell) 500 mg Tablet PO SCH (09:29)
[2016-11-10] MEDS: Tiotropium 18mcg/Cap 5 Capsule Inhaler Kit INHALATION SCH (09:30)
[2016-11-10] MEDS: 0.9% Sodium Chloride 1,000 ML IV SCH ×2 (11:15→21:08)
--- NOTE | 2016-11-10 12:12 | PCM.PHAPRO ---
Progress Right sided pain WARFARIN MANAGEMENT PER PHARMACY [facility] DFF DFF Date Nov 10 INR 1.00 1.12 INR change 0.12 Warf Dose 2.5 MG 2.5 Day 2 of warfarin initiation. Will continue warfarin 2.5 mg this evening. May consider increasing dose if trend not significant tomorrow. Pharmacy will continue to monitor. Paco Zelaya, PharmD Paco Zelaya Nov 10, 2016 12:12
--- NOTE | 2016-11-10 13:58 | NUR ---
Student Nurse Note Pt Heparin drip with arrival to shift was infusing at 14U/kg/hr. AM laboratory results revealed aPTT of 106.3, which per heparin protocol require titration down to 12U/kg/hr. Pt platelet count is currently 126 and is trending slightly down from previous lab draw. Pt has not void since beginning of shift, creatinine was 1.39. NS has been started at 100mL/hr. Pt has been hypotensive with BP of 92/58, but 2 hrs after fluid administration and BP medications with held was 122/54. Pt has been complaining of pain of 5/10 in the right flank and nausea. PRN Zofran and Vicodin used to manage symptoms. Pt is currently V-paced 70-80's per telemetry. Currently waiting of swallow eval for pt due to complaints of dysphagia. Plan is to monitor fluids, monitor coagulation and respiratory status. Addendum: 11/10/16 at 1430 by ANASTACIA MCKEON 1430 - New aPTT draw is 109.5. Per heparin protocol, infused stopped for 30 minutes and titrated down to 9U/kg/hr, next draw in 6 hrs ordered. Bed low and alarm set.
--- NOTE | 2016-11-10 16:06 | PCM.PNMED ---
Subjective Date of Service Nov 10, 2016 Subjective Patient reports that she is doing better than yesterday. She states that last night she got a very good night sleep, better than she has in many months. Patient reports that she continues to have pain on her right side when she takes a deep breath. Patient denies any pain when breathing normally, or at rest. Patient denies any chest pain. Patient denies any shortness of breath at baseline. Patient denies any nausea, vomiting, diarrhea, constipation, headache. Patient reported to nurse that she was experiencing some dysphagia and difficulty swallowing, she did not mention this to me when I spoke with her. Exam Vital Signs Vital Sign - Last Date Time Temp Pulse Resp B/P Pulse Ox O2 Delivery O2 Flow Rate FiO2 11/10/16 13:50 36.3 71 19 122/54 95 Nasal Cannula 2.00 Intake and Output 11/09/16 11/09/16 11/10/16 Cumulative From/Thru 15:00 23:00 07:00 11/09/16 01:43 - 11/10/16 06:30 Intake Total 500 ml 671 ml 1171 ml Output Total 600 ml 600 ml Balance -100 ml 671 ml 571 ml Intake Oral 500 ml 450 ml 950 ml IV Total 221 ml 221 ml Output Urine Total 600 ml 600 ml # Voids 1 1 Exam General: No acute distress, well-developed, well-nourished, appropriately interactive HEENT: Nasal cannula in place. Normocephalic, atraumatic. External ears without defect. Pupils equal, round, and reactive to light and accommodation. Moist conjunctivae. Oropharynx with moist mucosa. Neck: Supple with full range of motion.No lymphadenopathy Cardiovascular: Regular rate and rhythm with no murmurs, rubs, or gallops appreciated Pulmonary: Patient reports pain with deep inspiration. Minor crackles noted in the bases of the lungs bilaterally. No wheezing auscultated. Normal respiratory effort with no use of accessory muscles. Abdomen: Bowel tones present. Soft, nontender, nondistended. Extremities: Mild pitting edema at the ankles bilaterally Skin: Normal temperature, turgor, and texture; no rash, ulcers, or subcutaneous nodules appreciated. Psychiatric: Normal mood and affect. Alert and oriented to person, place, and time. IVs and Medications Medications Reviewed: Medications were reviewed in detail Lab and Diagnostics Result Diagram: 11/10/16 0627 11/10/16 0627 X-Rays, CTs and MRIs Exam date: 11/09/2016 CT PULMONARY ANGIOGRAM CONCLUSION: Pulmonary emboli in the right lower lobe involving several segmental branches and the right lower lobe pulmonary artery. Minimal associated right pleural effusion. Assessment & Plan Patient is a pleasant 86-year-old female with COPD, type 2 diabetes mellitus, hypertension and CAD presenting with right sided thoracic pain and admitted for pulmonary emboli. Acute right sided pulmonary emboli. Present on admission. Active -CT chest angio shows pulmonary emboli in the right lower lobe involving several segmental branches and the right lower lobe pulmonary artery -Uncertain etiology but likely provoked from being sedentary due to hip pain and recent URI -Heparin gtt PE/DVT protocol -Warfarin has been started, managed by pharmacy -INR this morning 1.12 Acute kidney injury likely secondary to dehydration, not present on admission, ongoing -Patient's creatinine increased from 0.92 to 1.39 today. -IV fluids started, NS 100 mls/hour Acute complaint of dysphagia, not present on admission, ongoing -Swallow evaluation has been ordered -Patient to be nothing by mouth until swallow relation has been completed Transaminitis and elevated alkaline phosphatase, chronic. Present on admission. Active -Outpatient records show mild elevations since 2010 -Uncertain etiology -AST, AST, alkaline phosphatase are all improved today -Continue to follow with CMP Non-insulin using Type 2 diabetes mellitus. Present on admission -HbA1c 6.4% (05/10/2016) -Bedside blood glucose checks Coronary artery disease, chronic. Present on admission -Continue home dose statin, ASA Hypertension, chronic. Present on admission -Continue home antihypertensives COPD, chronic. Present on admission -Continue home inhaler and nebulizers Patient Status: Patient is admitted under inpatient status with expected length of stay greater than 2 midnights due to severity of presenting symptoms, risk of adverse event, and complexity of treatment plan. Pain Evaluation: Adequate Pain Control VTE Prophylaxis: Other VTE Mechanical Devices: Intermittant Pneumatic CD Resuscitation Status: CPR: Attempt Resuscitation Attending Statement The patient was seen and examined together with Dr. Luke on 11/10/2016 and I agree with the history, exam and plan as outlined in the note above. Liliana Luke DO Nov 10, 2016 16:05 Aiden Claudio MD Nov 11, 2016 11:49
--- NOTE | 2016-11-10 17:55 | NUR ---
Evaluation completed. Rec: Thin/Soft. Medication crushed in pureed. Discussed with RN. Rec: esophagram Please go to "Notes" then click on "Assessments and Notes" (bottom left corner of screen). Then select appropriate discipline tab on top of screen.
[2016-11-11] VITALS (8 sets, daily range): BP systolic 100–133; BP diastolic 51–73; PULSE 77–96; RESP 18–20; O2SAT 93–100
[2016-11-11] MEDS: HYDROcodone-APAP 5-325 mg Tablet PO PRN ×4 (01:15→20:30)
[2016-11-11] MEDS: Heparin 25K Unit/500mL 0.45 NS 25,000 UNIT in IV Premix 1 EACH IV SCH (03:19)
[2016-11-11 05:11] LABS: BASOPHILS % (AUTO) 0.2 % (0-3); EOSINOPHILS % (AUTO) 1.1 % (0-5); MONOCYTES % (AUTO) 15.1 % (4-12); Mean Corpuscular Volume 88.2 fL (81-100); NEUTROPHILS % (AUTO) 65.3 % (40-74); Platelet Count 110 bil/L (150-400)
--- NOTE | 2016-11-11 05:26 | NUR ---
Pain/Meds/Plan Patient complaints of pain levels 7/10 to right side due to right sided PE. Giving [place] 2 tabs halved with water to maintain levels. Patient able to swallow halved medications with water. Heparin drip running at 10 units, last ptt at 2114 was 53.3, morning labs drawn late at 0500, next ptt result pending. A second swallow eval is scheduled for today. Held patients BP medications due to low BP's 103/48. Gave losartan and held propanolol BP of 133/51. Continue to monitor BP's. Addendum: 11/11/16 at 0558 by RAS MCKEON Ptt from 0500 lab was 61.8, in therapeutic range, no changed to drip.
[2016-11-11 05:31] LABS: INR 1.08 ratio
[2016-11-11] MEDS: Pantoprazole 20 mg ER24 Tablet PO SCH ×2 (06:40→19:45)
[2016-11-11] MEDS: 0.9% Sodium Chloride 1,000 ML IV SCH ×2 (06:40→16:12)
[2016-11-11] MEDS: Albuterol 2.5 mg/3 mL Inhalation Solution NEB PRN ×2 (08:36→20:38)
[2016-11-11] MEDS: Arformoterol 15 mCg/2 mL Inhalation Solution NEB SCH ×2 (08:36→20:38)
[2016-11-11] MEDS: guaiFENesin 600 mg ER12 Tablet PO SCH ×2 (09:03→19:45)
[2016-11-11] MEDS: Calcium Carbonate (Oyster Shell) 500 mg Tablet PO SCH (09:07)
[2016-11-11] MEDS: Tiotropium 18mcg/Cap 5 Capsule Inhaler Kit INHALATION SCH (09:08)
--- NOTE | 2016-11-11 11:12 | DRSVH ---
PROCEDURE: X-RAY CHEST ONE VIEW, PORTABLE ([id number]) INDICATIONS: dysphagia TECHNIQUE: One view of the chest was acquired. COMPARISON: [facility], CR, XR CHEST 1VW (PORTABLE), 11/09/2016, 1:50. FINDINGS: Surgical changes and devices: Stable positioning of dual chamber cardiac pacer. Lungs and pleura: Bibasilar airspace opacities present, left greater than right. Trace pleural effu sions bilaterally. No pneumothorax. . Mediastinum: Mediastinal contours appear normal. Heart size is enlarged . Bones and chest wall: No suspicious bony lesions. Overlying soft tissues appear unremarkable. IMPRESSION: Bibasilar atelectasis versus aspiration or pneumonia, left greater than right. Dictated by: Charan Garcia RRA Interpreted: Travis Vasquez MD on 11/11/2016 at 11:11 Transcribed by: CHERI on 11/11/2016 at 11:12 Approved by: Travis Vasquez M.D. on 11/11/2016 at 15:16
--- NOTE | 2016-11-11 12:48 | PCM.PHAPRO ---
Progress Date of Service: Nov 11, 2016 ANTICOAGULATION MANAGEMENT BY PHARMACY -INDICATION: PE -CONCURRENT ANTICOAGULATION: HEPARIN DRIP -CRCL: 34.51 ML/MIN -COAG TRENDS: Date -Nov 10-Nov 11-Nov INR 1.00 1.12 1.08 INR change ~ 0.12 -0.04 Warf Dose 2.5 MG 2.5 ~ -[id number] SCORE: 6 PLAN: INR remains subtherapeautic, will bump her dose tonight to 5 mg to continue to get it closer to goal range. Pharmacy appreciates consult and will continue to monitor. THANKS! Keysha Keenan PharmD Nov 11, 2016 12:48
--- NOTE | 2016-11-11 15:24 | DRSVH ---
PROCEDURE: X-RAY BARIUM SWALLOW ESOPHAGUS ([id number]) INDICATIONS: dysphagia COMPARISON: None. FINDINGS: Function: Mild esophageal dysmotility. No elicited gastroesophageal reflux. Morphology: Mild esophageal dysmotility. There is a smooth, short segment stricture of the distal es ophagus with maximal luminal diameter of roughly 5 mm. A 13 mm barium tablet was given which would n ot traverse a stricture. No definite additional esophageal abnormalities are seen. The attending ph ysician was personally present in the room during the examination. IMPRESSION: Distal esophageal stricture which although may be related to inflammatory stricture, neop lastic stricture cannot be excluded and endoscopy is recommended. Dictated by: Charan MUELLER Interpreted: Dion Toth MD on 11/11/2016 at 15:21 Transcribed by: SHELBY on 11/11/2016 at 15:23 Approved by: Dion Toth M.D. on 11/13/2016 at 16:05
--- NOTE | 2016-11-11 16:03 | NUR ---
Social Work: Readiness for d/c Data: Pt is on day 2 of hospitalization. EMR reviewed. Pt discussed in rounds. MD states pt likely to d/c in the next day or two. PT recommending HH for pt. E LEARNING DEVELOPER met with pt, choice list given, pt states no preference. [facility] referred after looking at rotating calendar. E LEARNING DEVELOPER left message with Bhargav Tovar, access given, F2F in E LEARNING DEVELOPER folder. E LEARNING DEVELOPER called pt's son who had left a message with E LEARNING DEVELOPER regarding d/c planning. He states pt will likely have to have shots twice a day but she shakes so much her thinks she wouldn't be able to do this. E LEARNING DEVELOPER suggested family assisting with this and/or private pay caregivers. E LEARNING DEVELOPER offered [employer] book for pt's family to consider hiring additional help, he accepted this. E LEARNING DEVELOPER will continue to follow. Assessment: Pt who is independent at baseline. Plan: Pt will d/c home when medically stable, likely within the next day or two, with [facility], RN/PT/OT, and possibly with private pay caregiving. E LEARNING DEVELOPER will continue to follow. STEW Khan
--- NOTE | 2016-11-11 18:38 | CONS ---
[address] [address] CONSULTATION REPORT PATIENT: DINORA HUSSEIN : 1930 MR#: [id number] ADMIT: 11/09/2016 JOB ID: [id number] DATE OF SERVICE: 11/11/2016 GASTROENTEROLOGY CONSULT: REQUESTING PROVIDER: Bridgett Madden DO (RES) REASON FOR CONSULTATION: Dysphagia and abnormal barium swallow. HISTORY OF PRESENT ILLNESS: The patient was admitted on November 09, 2016, for right-sided pain. She had an initial chest x-ray with no acute disease. CT chest revealed a central pulmonary embolus involving the right lower lobe, lobar artery, and segmental arteries. She had a small right pleural effusion, a 5 mm ground-glass nodule in the right middle lobe, mild cardiomegaly, and a small pericardial effusion. The patient reports that over the last 10 days or so she has had increasing difficulty with swallowing. Interestingly, things like solid items she does not have that much of a challenge with but when she takes a cold beverage she tends to have very severe dysphagia and will regurgitate the fluid. She had a barium swallow that demonstrated a distal esophageal stricture thought to be either inflammatory or neoplastic. Endoscopy was recommended. ALLERGIES: PENICILLINS. MEDICATIONS: Heparin drip, Coumadin, Cipro, Vicodin, Spiriva, calcium carbonate, Neurontin, Claritin, senna, B12, vitamin D3, guaifenesin, aspirin, Brovana, pantoprazole 20 mg twice daily, albuterol, pravastatin, gabapentin, Zofran, Robitussin, hydromorphone, propranolol, Cozaar, Tylenol, MiraLAX, Maalox. 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 FAMILY HISTORY: Noncontributory. SOCIAL HISTORY: The patient's granddaughter was at the bedside. Former smoker. Lives alone. REVIEW OF SYSTEMS: She has been coughing here in the hospital. She had right-sided pain at admission. She does not recall any lower extremity edema. The patient has a remote history of reflux over her lifetime, but was using a proton pump inhibitor quite successfully in terms of symptom control. Interestingly, she does not recall dysphagia up until about 10 days ago. She denies any abdominal pain, nausea, or vomiting. No blood in the stools or other change in bowel habit. PHYSICAL EXAMINATION: Blood pressure 128/69, pulse 96, breathing 20, temperature 36.8, 93% on nasal cannula 3 L. The patient was coughing intermittently, otherwise in no distress. I could hear crackles bilaterally, a little bit of diminished breath sounds on the right lower field. The patient had 1+ bilateral lower extremity edema. Abdomen was soft, nontender. LABORATORY DATA: White count 5.6, hemoglobin 9.4, platelets 110. INR 1.08; she is on a heparin drip currently. Liver tests are totally normal. Slight elevation in alkaline phosphatase and transaminases at admission. Albumin is 2.6. Sodium 135, potassium 4.6, chloride 103, bicarb 22, BUN 20, creatinine is 0.95, glucose 140, calcium 7.6. IMAGING: As above. Chest x-ray from today reveals bibasilar atelectasis versus aspiration or pneumonia, left greater than right. ASSESSMENT AND RECOMMENDATIONS: An 86-year-old female with a number of high-risk comorbidities, not the least of which is the presence of acute pulmonary embolism and some right-sided heart strain as a consequence. She has been commenced on anticoagulation therapy. Currently INR is subtherapeutic and she has been experiencing progressive swallowing challenges over the last 10 days. Barium swallow was concerning for the possibility of a neoplasm. While the INR is subtherapeutic, it would be reasonable and appropriate to pursue evaluation here. 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 Anesthesia has been requested for her sedation needs. We put the patient on for noon tomorrow. Her heparin drip will be on hold for the morning. I think it would be fine to give her Coumadin this evening. Between now and midnight she should be able to have a smoothie or soft based diet.
--- NOTE | 2016-11-11 21:56 | PCM.PNMED ---
Subjective Date of Service Nov 11, 2016 Subjective Patient reports that she feels about the same as yesterday. She reports that she continues to have right sided chest pain, that is worse when she takes a deep breath. Pt also reports a productive cough that she feels has been worsening. She reports that she continues to cough when she is trying to swallow. She states that she is very confused because this is a new issue. Pt denies any fevers, chills, nausea, vomiting or diarrhea. Pt denies any dysuria, hematuria or increased frequency of urination. Exam Vital Signs Vital Sign - Last Date Time Temp Pulse Resp B/P Pulse Ox O2 Delivery O2 Flow Rate FiO2 11/11/16 05:27 36.7 84 18 100/57 94 Nasal Cannula 2.00 Intake and Output 11/10/16 11/10/16 11/11/16 Cumulative From/Thru 15:00 23:00 07:00 11/09/16 01:43 - 11/11/16 06:45 Intake Total 1016 ml 1308 ml 3495 ml Output Total 800 ml 200 ml 1600 ml Balance 216 ml 1108 ml 1895 ml Intake Oral 200 ml 1150 ml IV Total 816 ml 1308 ml 2345 ml Output Urine Total 800 ml 200 ml 1600 ml # Voids 1 2 Exam General: No acute distress, well-developed, well-nourished, appropriately interactive HEENT: Nasal cannula in place. Normocephalic, atraumatic. External ears without defect. Pupils equal, round, and reactive to light and accommodation. Moist conjunctivae. Oropharynx with moist mucosa. Neck: Supple with full range of motion. Cardiovascular: Regular rate and rhythm with no murmurs, rubs, or gallops appreciated Pulmonary: Patient continues to report pain with deep inspiration. Bilateral crackles in the bases of the lungs-worse from previous day. Coarse lung sounds throughout. No wheezing auscultated. Productive cough.Normal respiratory effort with no use of accessory muscles. Abdomen: Bowel tones present. Soft, nontender, nondistended. Extremities: Mild pitting edema at the ankles bilaterally Skin: Normal temperature, turgor, and texture; no rash, ulcers, or subcutaneous nodules appreciated. Psychiatric: Normal mood and affect. Alert and oriented to person, place, and time. IVs and Medications Medications Reviewed: Medications were reviewed in detail Lab and Diagnostics Result Diagram: 11/11/16 0454 11/11/16 0454 X-Rays, CTs and MRIs Exam date: 11/09/2016 CT PULMONARY ANGIOGRAM CONCLUSION: Pulmonary emboli in the right lower lobe involving several segmental branches and the right lower lobe pulmonary artery. Minimal associated right pleural effusion. PROCEDURE: X-RAY CHEST ONE VIEW, PORTABLE ([id number]) INDICATIONS: dysphagia TECHNIQUE: One view of the chest was acquired. COMPARISON: [facility], CR, XR CHEST 1VW (PORTABLE), 11/09/2016, 1: 50. FINDINGS: Surgical changes and devices: Stable positioning of dual chamber cardiac pacer. Lungs and pleura: Bibasilar airspace opacities present, left greater than right. Trace pleural effusions bilaterally. No pneumothorax. . Mediastinum: Mediastinal contours appear normal. Heart size is enlarged . Bones and chest wall: No suspicious bony lesions. Overlying soft tissues appear unremarkable. IMPRESSION: Bibasilar atelectasis versus aspiration or pneumonia, left greater than right. Dictated by: Charan MUELLER Interpreted: Travis Vasquez MD on 11/11/2016 at 11:11 Transcribed by: CHERI on 11/11/2016 at 11:12 Approved by: Travis Vasquez M.D. on 11/11/2016 at 15:16 Additional Diagnostics PROCEDURE: X-RAY BARIUM SWALLOW ESOPHAGUS ([id number]) INDICATIONS: dysphagia COMPARISON: None. FINDINGS: Function: Mild esophageal dysmotility. No elicited gastroesophageal reflux. Morphology: Mild esophageal dysmotility. There is a smooth, short segment stricture of the distal esophagus with maximal luminal diameter of roughly 5 mm. A 13 mm barium tablet was given which would not traverse a stricture. No definite additional esophageal abnormalities are seen. The attending physician was personally present in the room during the examination. IMPRESSION: Distal esophageal stricture which although may be related to inflammatory stricture, neoplastic stricture cannot be excluded and endoscopy is recommended. Dictated by: Charan MUELLER Interpreted: Dion Toth MD on 11/11/2016 at 15: 21 Transcribed by: SHELBY on 11/11/2016 at 15:23 Assessment & Plan Patient is a pleasant 86-year-old female with COPD, type 2 diabetes mellitus, hypertension and CAD presenting with right sided thoracic pain and admitted for pulmonary emboli. Acute right sided pulmonary emboli. Present on admission. Active -CT chest angio shows pulmonary emboli in the right lower lobe involving several segmental branches and the right lower lobe pulmonary artery -Uncertain etiology but likely provoked from being sedentary due to hip pain and recent URI -Heparin gtt PE/DVT protocol -Warfarin has been started, managed by pharmacy -INR this morning 1.08 Acute complaint of dysphagia, not present on admission, ongoing -Swallow evaluation recommended thin liquids and Barium swallow evaluation -Barium swallow evaluation demonstrated 'Distal esophageal stricture which although may be related to inflammatory stricture, neoplastic stricture cannot be excluded" -GI was consulted, we appreciate their assistance and input. -Pt to have EGD in the AM Acute productive cough, not present on admission, ongoing -CXR was done due to complaint of cough, thought secondary to dysphagia -CXR demonstrated "Bibasilar atelectasis versus aspiration or pneumonia, left greater than right". -Likely secondary to dysphagia and possible aspiration Acute urinary tract infection with streptococcus enterococci, not present on admission, ongoing -Pt to start Cipro 250mg BID for 3 days -Pt has severe PCN allergy, thus ceftriaxone was not utilized. Acute kidney injury likely secondary to dehydration, not present on admission, ongoing -Patient's creatinine has normalized today. -IV fluids continued NS 100 mls/hour -continue to monitor with daily labs. Transaminitis and elevated alkaline phosphatase, chronic. Present on admission. Active -Outpatient records show mild elevations since 2010 -Uncertain etiology -AST, AST, alkaline phosphatase are all improved -Continue to follow with CMP Non-insulin using Type 2 diabetes mellitus. Present on admission -HbA1c 6.4% (05/10/2016) -Bedside blood glucose checks Coronary artery disease, chronic. Present on admission -Continue home dose statin, ASA Hypertension, chronic. Present on admission -Continue home antihypertensives COPD, chronic. Present on admission -Continue home inhaler and nebulizers Patient Status: Patient is admitted under inpatient status with expected length of stay greater than 2 midnights due to severity of presenting symptoms, risk of adverse event, and complexity of treatment plan. VTE Prophylaxis: Other VTE Mechanical Devices: Intermittant Pneumatic CD Resuscitation Status: CPR: Attempt Resuscitation Attending Statement The patient was seen and examined together with Dr. Luke on 11/11/2016 and I agree with the history, exam and plan as outlined in the note above. Liliana Luke DO Nov 11, 2016 08:04 Aiden Claudio MD Nov 12, 2016 14:06
[2016-11-12] VITALS (11 sets, daily range): BP systolic 100–169; BP diastolic 54–70; PULSE 84–109; RESP 15–18; O2SAT 94–100
[2016-11-12] MEDS: HYDROcodone-APAP 5-325 mg Tablet PO PRN ×2 (00:54→05:42)
[2016-11-12] MEDS: 0.9% Sodium Chloride 1,000 ML IV SCH ×3 (01:30→22:05)
[2016-11-12] MEDS: Pantoprazole 20 mg ER24 Tablet PO SCH ×2 (05:44→19:35)
[2016-11-12 06:00] LABS: BASOPHILS % (AUTO) 0.3 % (0-3); EOSINOPHILS % (AUTO) 1.4 % (0-5); MONOCYTES % (AUTO) 16.7 % (4-12); Mean Corpuscular Hemoglobin 27.7 pg (27.0-35.0); Mean Corpuscular Volume 89.8 fL (81-100); NEUTROPHILS % (AUTO) 54.8 % (40-74); Platelet Count 98 bil/L (150-400)
[2016-11-12 06:38] LABS: INR 1.16 ratio
--- NOTE | 2016-11-12 06:43 | NUR ---
Heparin Stopped Pts heparin drip was stopped at 0600, last ptt result called to this RN at 0630, and was 86.5.
--- NOTE | 2016-11-12 07:51 | PCM.PHAPRO ---
Progress RPh DFF DFF ARH RTM Date Nov 10Nov 11Nov 12-Nov INR 1.00 1.12 1.08 1.16 INR change 0.12 -0.04 0.08 Warf Dose 2.5 MG 2.5 5 MG 5 MG Ubaldo Ponce Nov 12, 2016 07:51
[2016-11-12] MEDS: Tiotropium 18mcg/Cap 5 Capsule Inhaler Kit INHALATION SCH (08:21)
[2016-11-12] MEDS: Calcium Carbonate (Oyster Shell) 500 mg Tablet PO SCH (08:22)
[2016-11-12] MEDS: guaiFENesin 600 mg ER12 Tablet PO SCH ×2 (08:23→19:35)
[2016-11-12] MEDS: Arformoterol 15 mCg/2 mL Inhalation Solution NEB SCH ×2 (09:07→21:11)
[2016-11-12] MEDS: Albuterol 2.5 mg/3 mL Inhalation Solution NEB PRN (09:07)
[2016-11-12] MEDS ORDERED: Phenylephrine/NS-PF 100 mCg/mL 5 mL Syringe IVPUSH ONE (10:16)
[2016-11-12] MEDS ORDERED: Propofol 10,000 mCg/mL 20 mL Inj ONE (10:16)
[2016-11-12] MEDS ORDERED: fentaNYL-PF 50 mCg/mL 2 mL Inj ONE (10:20)
--- NOTE | 2016-11-12 10:27 | PCM.HPANE ---
Patient Data Date of Service: Nov 12, 2016 Surgeon Admitting Provider:Damien Perez MD Attending Provider:Damien Perez MD Primary Care Physician:Jayce Gifford MD Other Provider: Reason for Visit PE Ht/WT & BMI Height (Feet): 5 Height (Inches): 3.00 Weight (Kilograms): 90.900 Body Mass Index 35.51 Allergies Coded Allergies: Penicillins (Verified Allergy, Severe, Hives, facial swelling, 11/09/16) Past Anesthesia History Anesthesia History: Denies:: Anesthesia Reactions, Difficult Intubation, Fam Anesthesia Reaction Diabetes History Hx Diabetes?: Yes Type of Diabetes: Diet Controlled Current Bedside Blood Glucose: 107 MRSA MRSA: No Medications Blood Thinner: Aspirin Active Scripts Aspirin Chew 81 Mg Vzonix285 Mg PO DAILY #30 Prov:Jose Ortiz MD 06/06/15 Reported Medications Calcium Carbonate/Vitamin D3 (Calcium 600 + Vit D3 400 Tab)600 Mg-400 Tablet1 Each PO DAILY 07/13/16 Cyanocobalamin (Vitamin B-12) (Vitamin B-12)500 Mcg Tab.subl1,000 Mcg SL 07/13/16 Albuterol HFA (Proair HFA)8.5 Gm Hfa.aer.ad2 Puffs INHALATION Q4H PRN For Shortness of Breath #1 INHALER 07/13/16 Dimenhydrinate (Dramamine)25 Mg Tab.chew50 Mg PO BID PRN For Nausea 07/13/16 Hydrocodone-Acetaminophen 5-325 mg 1 Each Tablet1 Tablet PO Q6H PRN For Pain Ref 0 07/13/16 Gabapentin 300 Mg Qhnrfqz416 Mg PO HS Ref 0 07/13/16 Losartan Potassium 50 Mg Ifvmoi67 Mg PO BID 04/19/16 Fluticasone Propionate (Flonase Allergy Relief)50 Mcg/Actuation [place].susp1 [place] NS DAILY 03/31/16 Gabapentin 300 Mg Xjunwjd364 Mg PO QAM Ref 0 06/05/15 Cetirizine HCl (Zyrtec)10 Mg Ydgwilp55 Mg PO QAM #30 CAPSULE Ref 0 06/05/15 Cholecalciferol (Vitamin D3) (Vitamin D3)2,000 Unit Tablet2,000 Unit PO QAM 06/05/15 Tiotropium [place] (Spiriva)18 Mcg Cap.w.dev18 Mcg IH DAILY at 2PM #1 PKG Ref 0 06/05/15 Propranolol HCl 20 Mg Ewsfww02 Mg PO BID 90 Days Ref 0 06/05/15 Pravastatin 40 Mg Xkgjrq62 Mg PO HS Ref 0 06/05/15 Multivitamin (Multivitamins)1 Each Capsule1 Each PO QAM 06/05/15 Famotidine 20 Mg Frqvxo50 Mg PO BID Ref 0 06/05/15 Budesonide Neb Soln 0.5 Mg/2 Ml Neb0.5 Mg INHALATION BID Ref 0 06/05/15 Arformoterol Tartrate (Brovana)15 Mcg/2 Ml Vial.neb15 Mcg IH BID 06/05/15 Albuterol Neb Soln 2.5 Mg/3 Ml Vial.neb2.5 Mg INHALATION Q4H PRN For Shortness of Breath Ref 0 06/05/15 Discontinued Scripts Prednisone (PredniSONE)20 Mg Ueoguf46 Mg PO DAILY #10 TABLET Prov:Katherine Kolb MD 10/03/16 Polyethylene Glycol 3350 (Miralax)17 Gm Powd.pack17 Gm PO DAILY #30 Prov:RUTHY SHEPPARD MD 04/26/16 History History of ENT Problems?: Yes HEENT History: Positive for:: Cataracts (bilateral surgery) Denies:: Difficult Intubation Dysphagia Glaucoma Hearing Problem Sinus Problem TMJ Hx of Heart Problems?: Yes Cardiovascular History: Positive for:: Chest Pain Edema Hypertension Pacemaker Denies:: Cardiac Surgery (pacemaker ) Congestive Heart Failure Heart Murmur Irregular Heartbeat Thrombophlebitis Other History/Comments R PA pulmonary embolus. On heparin gtt and titrating warfarin last few days. Heparin off at 0600. INR 1.1. mod-sev pHTN on TTE. normal LVSF Hx of Respiratory Problem?: Yes Respiratory History: Positive for:: COPD Dyspnea Denies:: Asthma Chest Surgery Emphysema Hemoptysis Oxygen Administration Pneumonia Tuberculosis Use of C-PAP Machine Hx Neurologic Problems?: Yes Neurological History: Positive for:: CVA (TIA) Dizziness (vertigo occasionally) Denies:: Alzheimer's Disease Dementia Headaches Multiple Sclerosis Parkinson's Disease Seizures Hx of GI Problems?: Yes Gastrointestinal History: Positive for:: Gastroesphageal Reflux Heartburn Denies:: Cirrhosis Diverticulitis Gastrointestinal Bleeding Hepatitis Hiatal Hernia Rectal Bleeding Hx of Problems?: Yes Genitourinary History: Positive for:: Urinary Tract Infection Denies:: HX of Hemodialysis Kidney Stones HX of Peritoneal Dialysis: No Female Hx: Denies:: Currently Endometriosis Pelvic Inflammatory Problems with Breasts? Skin History: Denies:: History Skin Disorders? Pressure Ulcers Hx Musculoskeletal Problems?: Yes Musculoskeletal History: Positive for:: Degenerative Joint Musculoskeletal Trauma (right hip "needs replace" but she doesnt want to have surgery) Denies:: Back Injury Joint Replacement Systemic Lupus Hx of Psycho/Social Problems?: No Psycho Social History: Denies:: Anxiety Bipolar Disorder Hx Depression Suicide Attempt Hx Surgeries?: Yes (pacemaker , appy; tonsilectomy; tubal; gall bladder) Hx Any Other Health Problems?: Yes Other History: Positive for:: Hospitalization Denies:: Cancer Endocrine Disease Thyroid Disease History Blood Transfusions: Denies:: Blood Transfusions Hx Diabetes: YesBedside Blood Glucose: 107 Occupation: Former retail managerHx Alcohol Use: NoHx Substance Use: No Smoking Status: Former Smoker Have You Smoked inLast 12 mo: No Stop/Bang Treated for Sleep Apnea?: No S-Snoring: Do You Snore Loudly: No T-Tired: feel tired, fatigued: No O-Obsered: Observed not breath: No P-Blood Pressure: treated: Yes B- Body Mass Index > 35 kg/m2: No A- Age over 50: Yes N- Neck Large Circumference: No G- Gender Male: No ABUNDIO Total Score: 1 Risk Assessment Category Category 1A: Patient has history of documented sleep apnea, and HAS NOT received any narcotic, sedative or anesthesia administration during this stay. Category 1B: Patient has history of documented sleep apnea, and HAS received any narcotic , sedative or anesthesia administration during this stay Category 2: Patient has SUSPECTED Obstructive Sleep Apnea, and HAS received any narcotic , sedative or anesthesia administration during this stay. Category 3: Patient has SUSPECTED Obstructive Sleep Apnea and HAS NOT received narcotic, sedative or anesthesia administration during this stay. Category 4: Outpatient in Procedural Areas with known sleep apnea or who screen positive for High Risk via the STOP/BANG questionnaire. Exam Exam Vital Signs Vital Signs Date Time Temp Pulse Resp B/P Pulse Ox O2 Delivery O2 Flow Rate FiO2 11/12/16 09:27 96 18 94 Room Air 11/12/16 09:13 96 18 94 Room Air 11/12/16 08:05 36.5 105 18 148/61 94 Room Air Meds/Labs/Diagnostics Admission Meds Current Medications Ciprofloxacin (Cipro) 250 mg BID@,19 PO Last administered on 11/12/16 08:22 ; Start 11/11/16 at 12:00; Stop 11/13/16 at 19:01 Warfarin Sodium (Coumadin) 5 mg DAILY@17 ONCE PO Last administered on 17:39; Start 11/11/16 at 17:00; Stop 11/11/16 at 17:01; Status DC Tiotropium [place] (Spiriva 18mcg/ Cap for Inh) 18 mcg DAILY INHALATION Last administered on 11/12/16 08:21; Start 11/12/16 at 08:30 Bedside Blood Glucose: 107 Labs Test 11/09/16 01:57 11/10/16 07:56 11/12/16 05:10 D-Dimer 7.5mg/L (<0.50) Magnesium Level 1.9mg/dL (1.6-2.6) Troponin T 0.010ug/L (0.0-0.011) Urine Color Yellow (YELLOW) Urine Appearance Hazy (CLEAR,HAZY) Urine pH 5.0 (5.0-8.0) Urine Specific Dora 1.020 (1.003-1.035) Urine Protein Negativemg/dL (NEG,TRACE) Urine Glucose (UA) Negativemg/dL (NEGATIVE) Urine Ketones Negativemg/dL (NEGATIVE) Urine Occult Blood Negative (NEGATIVE) Urine Nitrite Negative (NEGATIVE) Urine Bilirubin Negative (NEGATIVE) Urine Urobilinogen 0.2mg/dL (NORMAL) Urine Leukocyte Esterase Small (NEGATIVE) Urine RBC 0-2/hpf (0-2) Urine WBC >50/hpf (0-5) Urine Epithelial Cells Few/hpf (NONE-MOD) Urine Crystals None seen (NONE SEEN) Urine Bacteria Many/hpf (NONE-FEW) Urine Hyaline Casts Rare/lpf (NONE) Urine Granular Casts None seen (NONE SEEN) Urine Waxy Casts None seen (NONE SEEN) Urine Red Blood Cell Casts None seen (NONE SEEN) Urine White Blood Cell Casts None seen (NONE SEEN) Urine Mucus Present (None Seen) Urine Trichomonas None seen (NONE SEEN) Urine Yeast None (NONE SEEN) Urinalysis Comment None Urine Culture Reflexed Indicated Hold Urine Received (Received) White Blood Count 2.9th/mm3 (3.8-10.1) Red Blood Count 3.32mil/mm3 (3.90-5.20) Hemoglobin 9.2g/dL (12.0-15.6) Hematocrit 29.8% (35.0-46.0) Mean Corpuscular Volume 89.8fL (81-100) Mean Corpuscular Hemoglobin 27.7pg (27.0-35.0) Mean Corpuscular Hemoglobin Concent 30.9% (32.0-37.0) Red Cell Distribution Width 15.8% (12.3-15.4) Platelet Count 98bil/L (150-400) Neutrophils (%) (Auto) 54.8% (40-74) Lymphocytes (%) (Auto) 26.5% (14-46) Monocytes (%) (Auto) 16.7% (4-12) Eosinophils (%) (Auto) 1.4% (0-5) Basophils (%) (Auto) 0.3% (0-3) Prothrombin Time 12.5sec (8.1-12.5) Prothromb Time International Ratio 1.16ratio Activated Partial Thromboplast Time 86.5sec (22.8-33.0) Sodium Level 141mEq/L (134-144) Potassium Level 5.0mEq/L (3.5-5.2) Chloride Level 111mEq/L (97-108) Carbon Dioxide Level 22mmol/L (18-29) Blood Urea Nitrogen 14mg/dL (8-27) Creatinine 0.72mg/dL (0.57-1.00) Estimat Glomerular Filtration Rate 110mL/min (>59) Glucose Level 118mg/dL (60-99) Calcium Level 7.3mg/dL (8.5-10.1) Total Bilirubin 0.3mg/dL (0.0-1.2) Aspartate Amino Transf (AST/SGOT) 18U/L (0-50) Alanine Aminotransferase (ALT/SGPT) 21U/L (0-32) Alkaline Phosphatase 124U/L (25-165) Total Protein 4.6g/dL (6.4-8.4) Albumin 2.4g/dL (3.4-5.0) Procalcitonin 0.92ng/mL (0.00-0.08) Plan Impression Patient chart reviewed, patient interviewed and anesthestic plan with risks, benefits, and alternatives discussed, and informed consent obtained. NPO Status: 7pm ASA Physical Status: ASA3 Severe Disease Anesthetic Plan: MAC Bene/Risks/Altern/Consents: Yes HP Complete Prior to Induction: Yes Other Light sedation preferable given large recent PE Dion Weeks MD Nov 12, 2016 10:27
--- NOTE | 2016-11-12 11:35 | NUR ---
Off unit pt taken to ENDO at 1130 by endo RN via stretcher. Pt SL. On RA- saturation 96%. Pt denied having pain. Addendum: 11/12/16 at 1322 by JEANNINE HERRERA RN pt returned at 1300. Pt denies pain. Pt sitting up right in chair waiting for lunch. Pt c/o difficulty swallowing. 1st meal will be observed-soft diet ordered by primary RN. Pt encouraged to take small bites, turn head L&R and chin tuck to improve swallowing. Pt appears to be compliant. family in room.
[2016-11-12] MEDS: Lactated Ringer's 1,000 ML IV ONE ×2 (12:15→12:16)
--- NOTE | 2016-11-12 12:21 | PCM.ANEP1 ---
Post Anesthesia Phase 1 PACU Phase 1 Assessment Date of Service: Nov 12, 2016 Vital Signs Vital Signs Date Time Temp Pulse Resp B/P Pulse Ox O2 Delivery O2 Flow Rate FiO2 11/12/16 11:52 36.4 86 16 123/60 95 Room Air 11/12/16 09:27 96 18 94 Room Air 11/12/16 09:13 96 18 94 Room Air 11/12/16 08:05 36.5 105 18 148/61 94 Room Air Anesthetic Administered: MAC Level of Alertness: Awake, talking GUALLPA's with Equal Strength: Yes Pain: No Nausea or Vomiting: No Oxygen Delivery: Nasal Cannula Lungs: Clear to Auscultation Dion Weeks MD Nov 12, 2016 12:21
--- NOTE | 2016-11-12 12:22 | PCM.ANEP2 ---
Post Anesthesia Evaluation ASA/CMS Post Anesthesia Date of Service: Nov 12, 2016 VS in Patient's Normal Range?: Yes Resp Stable; Airway Patent?: Yes CV Function & Hydration Stable: Yes Mental Status Recovered?: Yes Pain control Satisfactory?: Yes N/V Control Satisfactory?: Yes Additional Comments Patient awake, hemodynamically stable, breathing stable post procedure. Dion Weeks MD Nov 12, 2016 12:22
--- NOTE | 2016-11-12 14:11 | ENDO ---
[address] [address] ENDOSCOPY PROCEDURE PATIENT: DINORA HUSSEIN : 1930 MR#: [id number] ADMIT: 11/09/2016 JOB ID: [id number] DATE OF SERVICE: 11/12/2016 PROCEDURE: Esophagogastroduodenoscopy. INDICATIONS: An 86-year-old female with symptoms of dysphagia. Found to have an abnormal barium esophagram. She has a large right-sided pulmonary embolus and endoscopic interrogation is pursued. EQUIPMENT: GIF H 180 J. SEDATION: Monitored anesthesia as provided by Dr. Dion Weeks. COMPLICATIONS: None identified. PROCEDURE INFORMATION: After the risks and benefits were explained, written and verbal informed consent was obtained. The patient was brought into the endoscopy suite and placed into the left lateral decubitus position. Sedation was achieved using the above-stated medications with the addition of oxygen via nasal cannula. The scope was introduced into the mouth through the bite block and advanced under direct visualization to the second portion of the duodenum. The scope was slowly withdrawn to carefully examine the mucosa for any defects or lesions. Retroflexed views were accomplished in the stomach, the stomach was decompressed, and the scope removed from the patient, who tolerated the procedure well. FINDINGS: 1. Duodenum: There was some mild Roxy's hyperplasia evident in the proximal duodenal bulb. Otherwise, no mucosal abnormalities throughout, to the second portion. 2. Stomach: No ulcers, no mass lesion. No outlet obstruction. Minimal nonspecific gastropathy was seen throughout. Retroflexed views of the LES did not disclose any mass lesion or other significant pathology. 3. Esophagus: The squamocolumnar junction correlated with the top of the gastric folds. The GE junction was at about 42 cm from the incisors. There was a subtle sliding hiatal hernia. No significant mucosal abnormality was appreciated in the distal esophagus. The patient had some pooled liquid in the body of the esophagus that was suggestive of suboptimal motility. There was no evidence of mass, no evidence of inflammation. ENDOSCOPIC DIAGNOSES: 1. Subtle sliding hiatal hernia. 2. No stricture, no mass lesion in the esophagus. 3. Minimal gastropathy. 4. Benign appearing Roxy's duodenal hyperplasia. RECOMMENDATIONS: 1. The patient is cleared to restart diabetic diet as tolerated. 2. I would recommend she be in a seated upright position for any p.o. intake. 3. From a gastroenterology perspective, it would be fine to resume anticoagulation as indicated. 4. Should there be any recurrent symptoms or complaints of dysphagia, I would recommend manometry. Achalasia or other esophageal dysmotility remains in the differential.
--- NOTE | 2016-11-12 15:07 | PCM.PNMED ---
Subjective Date of Service Nov 12, 2016 Subjective Patient reports that she is very fatigued. She states that she continues to cough and continues to have difficulty swallowing. She also continues to report right sided pain with deep inspiration. Exam Vital Signs Vital Sign - Last Date Time Temp Pulse Resp B/P Pulse Ox O2 Delivery O2 Flow Rate FiO2 11/12/16 09:13 96 18 94 Room Air 11/12/16 08:05 36.5 148/61 11/11/16 20:38 2.00 Intake and Output 11/11/16 11/11/16 11/12/16 Cumulative From/Thru 15:00 23:00 07:00 11/09/16 01:43 - 11/12/16 06:49 Intake Total 400 ml 1820 ml 1844 ml 7559 ml Output Total 900 ml 2475 ml 1150 ml 6125 ml Balance -500 ml -655 ml 694 ml 1434 ml Intake Oral 400 ml 986 ml 250 ml 2786 ml IV Total 834 ml 1594 ml 4773 ml Output Urine Total 900 ml 2475 ml 1150 ml 6125 ml # Voids 6 8 Exam General: No acute distress, well-developed, well-nourished, appropriately interactive HEENT: Nasal cannula in place. Normocephalic, atraumatic. External ears without defect. Pupils equal, round, and reactive to light and accommodation. Moist conjunctivae. Oropharynx with moist mucosa. Neck: Supple with full range of motion. Cardiovascular: Regular rate and rhythm with no murmurs, rubs, or gallops appreciated Pulmonary: Patient continues to report pain with deep inspiration. Bilateral crackles in the bases of the lungs-no change from previous day. Coarse lung sounds throughout. No wheezing auscultated. Productive cough.Normal respiratory effort with no use of accessory muscles. Abdomen: Bowel tones present. Soft, nontender, nondistended. Extremities: Mild pitting edema at the ankles bilaterally Skin: Normal temperature, turgor, and texture; no rash, ulcers, or subcutaneous nodules appreciated. Psychiatric: Normal mood and affect. Alert and oriented to person, place, and time. IVs and Medications Medications Reviewed: Medications were reviewed in detail Lab and Diagnostics Result Diagram: 11/12/16 0510 11/12/16 0510 X-Rays, CTs and MRIs Exam date: 11/09/2016 CT PULMONARY ANGIOGRAM CONCLUSION: Pulmonary emboli in the right lower lobe involving several segmental branches and the right lower lobe pulmonary artery. Minimal associated right pleural effusion. PROCEDURE: X-RAY CHEST ONE VIEW, PORTABLE ([id number]) INDICATIONS: dysphagia TECHNIQUE: One view of the chest was acquired. COMPARISON: [facility], CR, XR CHEST 1VW (PORTABLE), 11/09/2016, 1: 50. FINDINGS: Surgical changes and devices: Stable positioning of dual chamber cardiac pacer. Lungs and pleura: Bibasilar airspace opacities present, left greater than right. Trace pleural effusions bilaterally. No pneumothorax. . Mediastinum: Mediastinal contours appear normal. Heart size is enlarged . Bones and chest wall: No suspicious bony lesions. Overlying soft tissues appear unremarkable. IMPRESSION: Bibasilar atelectasis versus aspiration or pneumonia, left greater than right. Dictated by: Charan MUELLER Interpreted: Travis Vasquez MD on 11/11/2016 at 11:11 Transcribed by: CHERI on 11/11/2016 at 11:12 Approved by: Travis Vasquez M.D. on 11/11/2016 at 15:16 Additional Diagnostics PROCEDURE: X-RAY BARIUM SWALLOW ESOPHAGUS ([id number]) INDICATIONS: dysphagia COMPARISON: None. FINDINGS: Function: Mild esophageal dysmotility. No elicited gastroesophageal reflux. Morphology: Mild esophageal dysmotility. There is a smooth, short segment stricture of the distal esophagus with maximal luminal diameter of roughly 5 mm. A 13 mm barium tablet was given which would not traverse a stricture. No definite additional esophageal abnormalities are seen. The attending physician was personally present in the room during the examination. IMPRESSION: Distal esophageal stricture which although may be related to inflammatory stricture, neoplastic stricture cannot be excluded and endoscopy is recommended. Dictated by: Charan MUELLER Interpreted: Dion Toth MD on 11/11/2016 at 15: 21 Transcribed by: SHELBY on 11/11/2016 at 15:23 PROCEDURE: Esophagogastroduodenoscopy. FINDINGS: 1. Duodenum: There was some mild Roxy's hyperplasia evident in the proximal duodenal bulb. Otherwise, no mucosal abnormalities throughout, to the second portion. 2. Stomach: No ulcers, no mass lesion. No outlet obstruction. Minimal nonspecific gastropathy was seen throughout. Retroflexed views of the LES did not disclose any mass lesion or other significant pathology. 3. Esophagus: The squamocolumnar junction correlated with the top of the gastric folds. The GE junction was at about 42 cm from the incisors. There was a subtle sliding hiatal hernia. No significant mucosal abnormality was appreciated in the distal esophagus. The patient had some pooled liquid in the body of the esophagus that was suggestive of suboptimal motility. There was no evidence of mass, no evidence of inflammation. ENDOSCOPIC DIAGNOSES: 1. Subtle sliding hiatal hernia. 2. No stricture, no mass lesion in the esophagus. 3. Minimal gastropathy. 4. Benign appearing Roxy's duodenal hyperplasia. RECOMMENDATIONS: 1. The patient is cleared to restart diabetic diet as tolerated. 2. I would recommend she be in a seated upright position for any p.o. intake. 3. From a gastroenterology perspective, it would be fine to resume anticoagulation as indicated. 4. Should there be any recurrent symptoms or complaints of dysphagia, I would recommend manometry. Achalasia or other esophageal dysmotility remains in the differential. Harinder Hinton MD 11/12/16 1223 Assessment & Plan Patient is a pleasant 86-year-old female with COPD, type 2 diabetes mellitus, hypertension and CAD presenting with right sided thoracic pain and admitted for pulmonary emboli. Acute right sided pulmonary emboli. Present on admission. Active -CT chest angio shows pulmonary emboli in the right lower lobe involving several segmental branches and the right lower lobe pulmonary artery -Uncertain etiology but likely provoked from being sedentary due to hip pain and recent URI -Heparin gtt PE/DVT protocol -Warfarin has been started, managed by pharmacy -INR this morning 1.16 Acute complaint of dysphagia, not present on admission, ongoing -Swallow evaluation recommended thin liquids and Barium swallow evaluation -Barium swallow evaluation demonstrated 'Distal esophageal stricture which although may be related to inflammatory stricture, neoplastic stricture cannot be excluded" -GI was consulted, we appreciate their assistance and input. -EGD today demonstrating "Subtle sliding hiatal hernia.No stricture, no mass lesion in the esophagus.Minimal gastropathy.Benign appearing Roxy's duodenal hyperplasia" -Pt may resume diabetic diet Acute urinary tract infection with streptococcus enterococci, not present on admission, ongoing -Pt on Cipro 250mg BID for 3 days -Pt has severe PCN allergy, thus ceftriaxone was not utilized. -Pt is asymptomatic Acute productive cough, not present on admission, ongoing -CXR was done due to complaint of cough, thought secondary to dysphagia -CXR demonstrated "Bibasilar atelectasis versus aspiration or pneumonia, left greater than right". -Likely secondary to dysphagia and possible aspiration or COPD exacerbation -Procalcitonin was mildly elevated at 0.92, will repeat if not improving. -Starting Levaquin 750mg PO daily -Albuterol nebulizers q 4 hours scheduled Acute kidney injury likely secondary to dehydration, not present on admission, resolving -Patient's creatinine has normalized -IV fluids continued NS 100 mls/hour -continue to monitor with daily labs. Transaminitis and elevated alkaline phosphatase, chronic. Present on admission. resolved -Outpatient records show mild elevations since 2010 -Uncertain etiology -AST, AST, alkaline phosphatase are all improved -Continue to follow with CMP Non-insulin using Type 2 diabetes mellitus. Present on admission -HbA1c 6.4% (05/10/2016) -Bedside blood glucose checks Coronary artery disease, chronic. Present on admission -Continue home dose statin, ASA Hypertension, chronic. Present on admission -Continue home antihypertensives COPD, chronic. Present on admission -Continue home inhaler and nebulizers Patient Status: Patient is admitted under inpatient status with expected length of stay greater than 2 midnights due to severity of presenting symptoms, risk of adverse event, and complexity of treatment plan. VTE Prophylaxis: Other VTE Mechanical Devices: Intermittant Pneumatic CD Resuscitation Status: CPR: Attempt Resuscitation Attending Statement The patient was seen and examined together with Dr. Luke on 11/12/2016 and I agree with the history, exam and plan as outlined in the note above. Liliana Luke DO Nov 12, 2016 09:24 Aiden Claudio MD Nov 13, 2016 12:13
[2016-11-12] MEDS ORDERED: Heparin 5,000 Unit/mL Inj IVPUSH PRN (17:25)
[2016-11-12] MEDS ORDERED: Heparin 25K Unit/500mL 0.45 NS 25,000 UNIT in IV Premix 1 EACH IV SCH (17:25)
--- NOTE | 2016-11-12 18:00 | NUR ---
Oxygen & Heparin PE- re-initiated Pt off heparin IV for EGD that happened today. existing IV leaked, RAIL TRACK MAINTAINER called to place new one. PTT drawn by lab =38 IV rate 20units/90.9kg rate confirmed by RN Chung (float) bolus 25Units/90.9= 2272 (2300given) next PTT due 2330. Warfarin given the junior, confirmed with Pharmacist Perri. Pt desats on RA. Sating mid 80s, on 2L up to 94%. aware.
[2016-11-12] MEDS: levoFLOXacin 750 mg Tablet PO SCH (20:38)
[2016-11-12] MEDS: Albuterol 2.5 mg/3 mL Inhalation Solution NEB SCH (21:11)
[2016-11-13] VITALS (13 sets, daily range): BP systolic 91–157; BP diastolic 52–77; PULSE 77–103; RESP 18–20; O2SAT 94–100
[2016-11-13] MEDS: Albuterol 2.5 mg/3 mL Inhalation Solution NEB SCH ×6 (00:30→20:12)
--- NOTE | 2016-11-13 04:41 | NUR ---
Pain Patient complained of 3/10 pain in her chest/right shoulder at the beginning of the shift. Patient received scheduled pain medication and reported a decrease in her pain. At 0230 the patient ambulated to the bathroom and started complaining of that chest/right shoulder pain being a 3/10 again and pain medication was offered but the patient refused and stated "she just needed to sit up in bed. It's from hunching over". Patient was assisted back to bed and has been resting comfortably. Will continue to assess for pain and help with position change.
[2016-11-13 05:24] LABS: BASOPHILS % (AUTO) 0.3 % (0-3); EOSINOPHILS % (AUTO) 1.7 % (0-5); MONOCYTES % (AUTO) 15.2 % (4-12); Mean Corpuscular Hemoglobin 27.3 pg (27.0-35.0); Mean Corpuscular Volume 88.7 fL (81-100); NEUTROPHILS % (AUTO) 54.9 % (40-74); Platelet Count 135 bil/L (150-400)
[2016-11-13] MEDS: Pantoprazole 20 mg ER24 Tablet PO SCH ×2 (05:30→20:49)
[2016-11-13] MEDS: 0.9% Sodium Chloride 1,000 ML IV SCH (05:40)
[2016-11-13] MEDS: HYDROcodone-APAP 5-325 mg Tablet PO PRN ×2 (05:57→20:48)
[2016-11-13 06:20] LABS: INR 1.97 ratio
[2016-11-13] MEDS: Arformoterol 15 mCg/2 mL Inhalation Solution NEB SCH ×2 (07:56→20:20)
[2016-11-13] MEDS: Tiotropium 18mcg/Cap 5 Capsule Inhaler Kit INHALATION SCH (08:05)
[2016-11-13] MEDS: levoFLOXacin 750 mg Tablet PO SCH (08:08)
[2016-11-13] MEDS: guaiFENesin 600 mg ER12 Tablet PO SCH ×2 (08:16→20:47)
[2016-11-13] MEDS: Calcium Carbonate (Oyster Shell) 500 mg Tablet PO SCH (08:16)
--- NOTE | 2016-11-13 08:50 | NUR ---
Heparin re-started Heparin IV drip stopped d/t high PTT readings. Last draw =74, now Heparin infusing at initial 20units that were started yesterday junior. PTT redraw ordered for 1450-6 hrs after start. Pt informed, questions answered. Tolerating well. Will continue monitoring for occult bleeding.
--- NOTE | 2016-11-13 08:55 | NUR ---
[facility] Signed
--- NOTE | 2016-11-13 13:49 | NUR ---
Social Work: Readiness for Discharge D: Pt discussed in am rounds. Pt is still not medically ready for discharge and anticipated to go home in several more days. EMR reviewed. Pt continues to work with PT. On 11/11 pt ambulated SBA-Min Assistance approximately 45 feet with a recommendation for home with HH. On 11/12 pt did better going approximately 60 feet SBA with FWW however recommendation was changed to SNF/[facility]. At this time SYSTEMS TECHNOLOGIST does not believe pt meets skillable criteria for SNF benefit based on current notes. SYSTEMS TECHNOLOGIST met with pt and family at bedside to confirm discharge plan and to determine if they had made decisions about PP caregiving. Pt sitting at EOB and comfortable. Pt states she does not feel that she needs skilled rehab and that she will probably be going to stay with her son as opposed to hiring a caregiver. Family is still working on this plan and declined to have SYSTEMS TECHNOLOGIST assist with further planning other than to make arrangements for home health. Referral made to [facility] for RN, PT, OT. SYSTEMS TECHNOLOGIST requested family update SYSTEMS TECHNOLOGIST with final discharge location for the pt so that [facility] can plan accordingly. A: Pt who is ambulating SBA with FWW. P: Anticipate pt to discharge with [facility] for RN, PT, OT; SYSTEMS TECHNOLOGIST to follow up with family re: location of where pt will be going. STEW Eric
--- NOTE | 2016-11-13 14:07 | PCM.PNMED ---
Subjective Date of Service Nov 13, 2016 Subjective Osiris Soliz 86-year-old female with COPD, type 2 diabetes mellitus, hypertension and CAD who presented to [facility] emergency Department with right sided thoracic pain and admitted for pulmonary emboli. Hospital day #5. Overnight: The patient had left shoulder pain and chest pain that she rated at + 3 out of 10 that was relieved with hydrocodone. Otherwise there were no acute events. Telemetry overnight was v-paced, heart rate 80- 100's, without ectopy. The patient is resting in bed comfortably and in no acute distress. She continues to endorse cough and dysphagia. She denies headache, ear pain, rhinitis, sore throat, shortness of breath, chest pain, abdominal pain, nausea, vomiting, fever, chills, dysuria, diarrhea or constipation. She is voiding and eliminating without difficulty. She is up ambulating with FWW minimally and with assistance. Exam Vital Signs Vital Sign - Last Date Time Temp Pulse Resp B/P Pulse Ox O2 Delivery O2 Flow Rate FiO2 11/13/16 11:36 88 18 98 Room Air 11/13/16 09:52 36.3 91/52 3.00 Intake and Output 11/12/16 11/12/16 11/13/16 Cumulative From/Thru 15:00 23:00 07:00 11/09/16 01:43 - 11/13/16 06:24 Intake Total 481 ml 300 ml 1854 ml 52208 ml Output Total 750 ml 600 ml 7475 ml Balance 481 ml -450 ml 1254 ml 2719 ml Intake Oral 300 ml 300 ml 3386 ml IV Total 481 ml 1554 ml 6808 ml Output Urine Total 750 ml 600 ml 7475 ml # Voids 8 # Bowel Movements 1 2 3 Exam General: Elderly female lying in bed and in no acute distress, well-developed, well-nourished, appropriately interactive HEENT: Normocephalic, atraumatic. External ears without defect. Pupils equal, round, and reactive to light. Anicteric sclerae, moist conjunctivae, and no lid lag. Oropharynx free of erythema and cobble stoning with moist mucosa. Neck: Supple with full range of motion. No lymphadenopathy or thyromegaly. Cardiovascular: Regular rate and rhythm with no murmurs, rubs, or gallops appreciated Pulmonary: Bibasilar fine crackles. No wheezes or rhonchi. Productive cough. Normal respiratory effort with no use of accessory muscles. Abdomen: Soft, obese, nontender, nondistended, bowel sounds present. No hepatosplenomegaly or masses appreciated. Extremities: No clubbing or cyanosis. Bilateral trace pitting edema to ankles. Skin: Normal temperature, turgor, and texture; no rash, ulcers, or subcutaneous nodules appreciated. Neurological: Cranial nerves grossly intact. Normal muscle strength, tone, and bulk. Reflexes, coordination, and sensory function within normal limits. No known gait impairment. Psychiatric: Normal mood and affect. Alert and oriented to person, place, and time. . IVs and Medications Medications Reviewed: Medications were reviewed in detail Lab and Diagnostics Item Value Date Time Prothrombin Time 21.4 sec H 11/13/16509 Prothromb Time International Ratio 1.97 ratio 11/13/16 05 Result Diagram: 11/13/1650911/13/16 0500 Microbiology Influenza screen negative. Urine culture grew enterococcus faecalis resistant to tetracycline. Stool occult blood positive. . X-Rays, CTs and MRIs CT ANGIO CHEST PULMONARY EMBOLISM IMPRESSION: 1. Central pulmonary emboli involving the right lower lobe lobar artery and segmental arteries. 2. A small right pleural effusion. 3. A 5 mm groundglass nodule in the right middle lobe. 4. Mild cardiomegaly and small pericardial effusion. No significant discrepancy with the mini shifter radiology preliminary report. Fleischner Society criteria for SUB-SOLID lung nodule followup. Solitary pure ground-glass nodules5 mm or lessNo followup needed. >5 mm3 mo follow-up CT to confirm persistence. Then annual CT for 3 years. Part-solid nodules3 mo follow-up CT to confirm persistence. If persistent with solid component <5 mm, annual CT for at least 3 years. If solid component is 5 mm or more, biopsy or surgical resection. Consider PET-CT for lesions > 10 mm. Multiple sub-solid nodulesPure ground glass nodules [address] at 2 and 4 years. Pure ground glass nodules >5 mm without dominant lesion. [address] to confirm persistence, then annual followup CT for at least 3 years. Dominant nodule(s) with part-solid or solid component. [address] to confirm persistence. If persistent, consider biopsy or surgical resection, wing if lesions have >5 mm solid component. Dictated by: Travis Vasquez M.D. on 11/09/2016 at 9:29 Approved by: Travis Vasquez M.D. on 11/09/2016 at 9:41 X-RAY CHEST ONE VIEW, PORTABLE IMPRESSION: Bibasilar atelectasis versus aspiration or pneumonia, left greater than right. Dictated by: Charan MUELLER Interpreted: Travis Vasquez MD on 11/11/2016 at 11:11 Transcribed by: CHERI on 11/11/2016 at 11:12 Approved by: Travis Vasquez M.D. on 11/11/2016 at 15:16 . Cardiac Echo Impressions Echocardiogram Interpretation Summary: 1) Normal left ventircular thickness, size, wall motion, and systolic function (EF 60-65%). 2) Upper normal right ventricular size with low normal systolic function. 3) Mild to moderate tricuspid regurgitation. 4) Pulmonary hypertension present, systolic pulmonary artery pressure estimated at 59 mmHg assuming a right atrial pressure of 8 mm Hg. 5) Compared to the Echo on 06/23/2015, pulmonary artery pressures are higher on today's study. Reading Physician:04:38 PM . Additional Diagnostics X-RAY BARIUM SWALLOW ESOPHAGUS IMPRESSION: Distal esophageal stricture which although may be related to inflammatory stricture, neoplastic stricture cannot be excluded and endoscopy is recommended. Dictated by: Charan MUELLER Interpreted: Dion Toth MD on 11/11/2016 at 15: 21 Transcribed by: SHELBY on 11/11/2016 at 15:23 Esophagogastroduodenoscopy. FINDINGS: 1. Duodenum: There was some mild Roxy's hyperplasia evident in the proximal duodenal bulb. Otherwise, no mucosal abnormalities throughout, to the second portion. 2. Stomach: No ulcers, no mass lesion. No outlet obstruction. Minimal nonspecific gastropathy was seen throughout. Retroflexed views of the LES did not disclose any mass lesion or other significant pathology. 3. Esophagus: The squamocolumnar junction correlated with the top of the gastric folds. The GE junction was at about 42 cm from the incisors. There was a subtle sliding hiatal hernia. No significant mucosal abnormality was appreciated in the distal esophagus. The patient had some pooled liquid in the body of the esophagus that was suggestive of suboptimal motility. There was no evidence of mass, no evidence of inflammation. ENDOSCOPIC DIAGNOSES: 1. Subtle sliding hiatal hernia. 2. No stricture, no mass lesion in the esophagus. 3. Minimal gastropathy. 4. Benign appearing Roxy's duodenal hyperplasia. RECOMMENDATIONS: 1. The patient is cleared to restart diabetic diet as tolerated. 2. I would recommend she be in a seated upright position for any p.o. intake. 3. From a gastroenterology perspective, it would be fine to resume anticoagulation as indicated. 4. Should there be any recurrent symptoms or complaints of dysphagia, I would recommend manometry. Achalasia or other esophageal dysmotility remains in the differential. Harinder Hinton MD 11/12/16 7513 . Assessment & Plan Osiris Soliz 86-year-old female with COPD, type 2 diabetes mellitus, hypertension and CAD who presented to [facility] emergency Department with right sided thoracic pain and admitted for pulmonary emboli. Hospital day #5. Acute right sided pulmonary emboli. Present on admission. Active - CT chest angio shows pulmonary emboli in the right lower lobe involving several segmental branches and the right lower lobe pulmonary artery, as above. - Uncertain etiology but likely provoked from being sedentary due to hip pain and recent URI. - Discontinued Heparin gtt as patient has been labile and supratherapeutic with history of liver cirrhosis. Will start therapeutic Lovenox to bridge to warfarin per pharmacy. - Continue to monitor INR daily. INR 1.97 today. Acute complaint of dysphagia, not present on admission. Ongoing - Speech therapy recommended thin liquids and Barium swallow based on the patient swallowing evaluation. - Barium swallow demonstrated distal esophageal stricture which although may be related to inflammatory stricture, neoplastic stricture cannot be excluded, as above. - GI was consulted and an EGD was performed which was unrevealing as above. If continues to have recurrent dysphagia recommends manometry to assess for achalasia. Acute urinary tract infection with enterococcus faecalis, not present on admission. Treating. - Patient was asymptomatic. Received ciprofloxacin 250 mg twice a day 3 doses. Now on levofloxacin 750 mg daily x 2 days and will complete 5 day course. - Due to severe penicillin allergy ceftriaxone was not utilized. Acute productive cough, not present on admission. Improving. - Cough is thought to be secondary to dysphagia. - Chest x-ray demonstrated bibasilar atelectasis versus aspiration or pneumonia , left greater than right, as above. - Likely secondary to dysphagia and possible aspiration or COPD exacerbation. - Procalcitonin was mildly elevated at 0.92 - Continue Levaquin 750mg PO daily 5 days. - Continue home AccuNeb every 4 hours, Brovana 15 g nebulized twice a day, and Spiriva 18 g inhaled daily. Acute kidney injury, likely secondary to dehydration, not present on admission. Resolved. - Patient's creatinine has normalized. - Discontinued IV fluids and continue to encourage PO in take. - Continue to monitor renal function and urine output daily. Chronic intermittent transaminitis, unclear etiology, present on admission. Resolved. - Outpatient records show mild elevations since 2010. - AST, AST, alkaline phosphatase within normal limits. - Continue to follow with CMP. Diabetes mellitus type II, non-insulin using, chronic. - HbA1c 6.4% (05/10/2016). - Bedside blood glucose checks. - Continue heart healthy/carbohydrate consistent diet. - Continue low-dose correctional scale insulin. Coronary artery disease, chronic. Stable. - Continue home dose pravastatin 20 mg daily at bedtime and aspirin 324 mg daily. Hypertension, chronic. - Continue home losartan 25 mg twice a day and propanolol 40 mg twice a day. COPD, chronic. - Continue home AccuNeb every 4 hours, Brovana 15 g nebulized twice a day, and Spiriva 18 g inhaled daily. PRN antiemetics: Zofran and Maalox. PRN bowel regimen: Senna and MiraLAX. PRN analgesics: Tylenol. Disposition: Likely discharge in the next 1-2 days once INR is therapeutic 2 days. VTE Prophylaxis: Other VTE Mechanical Devices: Intermittant Pneumatic CD Resuscitation Status: CPR: Attempt Resuscitation Attending Statement The patient was seen and examined together with Dr. Madden on 11/13/2016 and I agree with the history, exam and plan as outlined in the note above. Bridgett Madden DO Nov 13, 2016 14:07 Aiden Claudio MD Nov 14, 2016 13:06
--- NOTE | 2016-11-13 16:15 | NUR ---
Epistaxis/Heparin stopped PTT results back at 6hr interval, =240 Heparin IV stopped. Family & pt informed of lab values-2 daughters present. Family asked if pt with any liver disease, RN informed pt being dx with cirrhosis as recently as fall when gallbladder was removed. notified. Call back recd. Will look into other anticoagulant options. Waiting to hear for further orders from . Pt c/o some epistaxis. Mild. Not currently an issue. Will continue to monitor. Addendum: 11/13/16 at 1840 by JEANNINE HERRERA RN Lovenox to replace Heparin, managed by Pharmacy.
[2016-11-14] VITALS (14 sets, daily range): BP systolic 101–171; BP diastolic 54–80; PULSE 77–95; RESP 18–20; O2SAT 93–100
[2016-11-14] MEDS: Albuterol 2.5 mg/3 mL Inhalation Solution NEB SCH ×6 (03:39→21:34)
[2016-11-14 06:31] LABS: INR 2.5 ratio
--- NOTE | 2016-11-14 06:34 | NUR ---
SOB Tonight Pt has been able to get to and from BR independently. Pt able to stand and use FWW on her own, and get her legs back up into bed. When back in bed Pt complaint of significant SOB. Pt has been mid 90s on RA all shift, but after ambulating to and from BR Pt doped into low 80s. Pt was placed on 2L oxygen via NC for 2 minutes and was then taken off oxygen. Now sating at 96%.
[2016-11-14 06:46] LABS: BASOPHILS % (AUTO) 1.2 % (0-3); EOSINOPHILS % (AUTO) 2.4 % (0-5); MONOCYTES % (AUTO) 19.3 % (4-12); Mean Corpuscular Hemoglobin 27.8 pg (27.0-35.0); Mean Corpuscular Volume 86.7 fL (81-100); NEUTROPHILS % (AUTO) 44.6 % (40-74); Platelet Count 125 bil/L (150-400)
[2016-11-14] MEDS: guaiFENesin 600 mg ER12 Tablet PO SCH ×2 (09:00→20:22)
[2016-11-14] MEDS: Pantoprazole 20 mg ER24 Tablet PO SCH ×2 (09:01→20:22)
[2016-11-14] MEDS: Calcium Carbonate (Oyster Shell) 500 mg Tablet PO SCH (09:02)
[2016-11-14] MEDS: levoFLOXacin 750 mg Tablet PO SCH (09:02)
[2016-11-14] MEDS: Arformoterol 15 mCg/2 mL Inhalation Solution NEB SCH ×2 (09:15→21:34)
[2016-11-14] MEDS: Tiotropium 18mcg/Cap 5 Capsule Inhaler Kit INHALATION SCH (09:39)
[2016-11-14] MEDS: HYDROcodone-APAP 5-325 mg Tablet PO PRN ×2 (12:04→21:55)
[2016-11-14] MEDS: predniSONE 20 mg Tablet PO SCH (12:59)
--- NOTE | 2016-11-14 13:59 | PCM.PHAPRO ---
Progress Date of Service: Nov 14, 2016 ANTICOAGULATION MANAGEMENT BY PHARMACY -INDICATION: PE -CONCURRENT ANTICOAGULATION: LOVENOX 80 MG BID -CRCL: 34.51 ML/MIN -COAG TRENDS: -Nov 13-Nov 14-Nov 1.16 1.97 2.5 0.08 0.81 0.53 5 MG 3 ~ -[id number] SCORE: 6 PLAN: INR WITHIN RANGE, WILL GIVE A OT DOSE OF 5 MG TONIGHT AND IF THEREAPEUTIC FOR 2 DAYS IN A ROW PLAN IS TO DISCHARGE Pharmacy appreciates consult and will continue to monitor. THANKS! Keysha Keenan PharmD Nov 14, 2016 13:59
--- NOTE | 2016-11-14 15:23 | NUR ---
Social Work Continued Discharge Planning: SW met with patient at bedside to discuss discharge plan. Patient was accompanied with daughter Keya, and son Demetri, . Patient resides independently in [facility]. Patient assessed by therapy and recommendations for SNF placement. SNF list provided to patient and family for review. Patient and family states choice as [facility] or [facility]. SW requested that UR specialist send referral to mentioned SNF's for possible acceptance. SW to follow. PLAN: SNF, pending acceptance. Referral sent to [facility] and [facility]. SW to follow up on acceptance/bed availability status Lgiia Storm
--- NOTE | 2016-11-14 18:09 | PCM.PNMED ---
Subjective Date of Service Nov 14, 2016 Subjective Patient reports that she continues to experience some shortness of breath, but reports it is improving. She states that she continues to have some pain with inspiration. She also reports that she continues to have a productive cough. Pt denies any dysuria, hematuria, frequency or urgency. Pt denies any nausea, vomiting or diarrhea. Exam Vital Signs Vital Sign - Last Date Time Temp Pulse Resp B/P Pulse Ox O2 Delivery O2 Flow Rate FiO2 11/14/16 16:18 85 20 98 Room Air 11/14/16 10:34 36.3 130/80 11/13/16 14:02 3.00 Intake and Output 11/13/16 11/13/16 11/14/16 Cumulative From/Thru 15:00 23:00 07:00 11/09/16 01:43 - 11/14/16 06:39 Intake Total 1792 ml 200 ml 78008 ml Output Total 1700 ml 650 ml 9825 ml Balance 92 ml -450 ml 2361 ml Intake Oral 770 ml 200 ml 4356 ml IV Total 1022 ml 7830 ml Output Urine Total 1700 ml 650 ml 9825 ml # Voids 8 # Bowel Movements 3 Exam General: No acute distress, well-developed, well-nourished, appropriately interactive HEENT: Normocephalic, atraumatic. External ears without defect. Pupils equal, round, and reactive to light and accommodation. Moist conjunctivae. Oropharynx with moist mucosa. Neck: Supple with full range of motion. Cardiovascular: Regular rate and rhythm with no murmurs, rubs, or gallops appreciated Pulmonary: Patient continues to report pain with deep inspiration. Bilateral crackles in the bases of the lungs-improved from previous day. Coarse lung sounds throughout. No wheezing auscultated. Productive cough.Normal respiratory effort with no use of accessory muscles. Abdomen: Bowel tones present. Soft, nontender, nondistended. Extremities: Mild pitting edema at the ankles bilaterally Skin: Normal temperature, turgor, and texture; no rash, ulcers, or subcutaneous nodules appreciated. Psychiatric: Normal mood and affect. Alert and oriented to person, place, and time. IVs and Medications Medications Reviewed: Medications were reviewed in detail Lab and Diagnostics Result Diagram: 11/14/16 0535 11/14/1635 Microbiology Influenza screen negative. Urine culture grew enterococcus faecalis resistant to tetracycline. Stool occult blood positive. . X-Rays, CTs and MRIs CT ANGIO CHEST PULMONARY EMBOLISM IMPRESSION: 1. Central pulmonary emboli involving the right lower lobe lobar artery and segmental arteries. 2. A small right pleural effusion. 3. A 5 mm groundglass nodule in the right middle lobe. 4. Mild cardiomegaly and small pericardial effusion. No significant discrepancy with the assistant casino shift manager radiology preliminary report. Fleischner Society criteria for SUB-SOLID lung nodule followup. Solitary pure ground-glass nodules5 mm or lessNo followup needed. >5 mm3 mo follow-up CT to confirm persistence. Then annual CT for 3 years. Part-solid nodules3 mo follow-up CT to confirm persistence. If persistent with solid component <5 mm, annual CT for at least 3 years. If solid component is 5 mm or more, biopsy or surgical resection. Consider PET-CT for lesions > 10 mm. Multiple sub-solid nodulesPure ground glass nodules [address] at 2 and 4 years. Pure ground glass nodules >5 mm without dominant lesion. [address] to confirm persistence, then annual followup CT for at least 3 years. Dominant nodule(s) with part-solid or solid component. [address] to confirm persistence. If persistent, consider biopsy or surgical resection, wing if lesions have >5 mm solid component. Dictated by: Travis Vasquez M.D. on 11/09/2016 at 9:29 Approved by: Travis Vasquez M.D. on 11/09/2016 at 9:41 X-RAY CHEST ONE VIEW, PORTABLE IMPRESSION: Bibasilar atelectasis versus aspiration or pneumonia, left greater than right. Dictated by: Charan Garcia RR Interpreted: Travis Vasquez MD on 11/11/2016 at 11:11 Transcribed by: CHERI on 11/11/2016 at 11:12 Approved by: Travis Vasquez M.D. on 11/11/2016 at 15:16 . Cardiac Echo Impressions Echocardiogram Interpretation Summary: 1) Normal left ventircular thickness, size, wall motion, and systolic function (EF 60-65%). 2) Upper normal right ventricular size with low normal systolic function. 3) Mild to moderate tricuspid regurgitation. 4) Pulmonary hypertension present, systolic pulmonary artery pressure estimated at 59 mmHg assuming a right atrial pressure of 8 mm Hg. 5) Compared to the Echo on 06/23/2015, pulmonary artery pressures are higher on today's study. Reading Physician:04:38 PM . Additional Diagnostics X-RAY BARIUM SWALLOW ESOPHAGUS IMPRESSION: Distal esophageal stricture which although may be related to inflammatory stricture, neoplastic stricture cannot be excluded and endoscopy is recommended. Dictated by: Charan Garcia RR Interpreted: Dion Toth MD on 11/11/2016 at 15: 21 Transcribed by: SHELBY on 11/11/2016 at 15:23 Esophagogastroduodenoscopy. FINDINGS: 1. Duodenum: There was some mild Roxy's hyperplasia evident in the proximal duodenal bulb. Otherwise, no mucosal abnormalities throughout, to the second portion. 2. Stomach: No ulcers, no mass lesion. No outlet obstruction. Minimal nonspecific gastropathy was seen throughout. Retroflexed views of the LES did not disclose any mass lesion or other significant pathology. 3. Esophagus: The squamocolumnar junction correlated with the top of the gastric folds. The GE junction was at about 42 cm from the incisors. There was a subtle sliding hiatal hernia. No significant mucosal abnormality was appreciated in the distal esophagus. The patient had some pooled liquid in the body of the esophagus that was suggestive of suboptimal motility. There was no evidence of mass, no evidence of inflammation. ENDOSCOPIC DIAGNOSES: 1. Subtle sliding hiatal hernia. 2. No stricture, no mass lesion in the esophagus. 3. Minimal gastropathy. 4. Benign appearing Roxy's duodenal hyperplasia. RECOMMENDATIONS: 1. The patient is cleared to restart diabetic diet as tolerated. 2. I would recommend she be in a seated upright position for any p.o. intake. 3. From a gastroenterology perspective, it would be fine to resume anticoagulation as indicated. 4. Should there be any recurrent symptoms or complaints of dysphagia, I would recommend manometry. Achalasia or other esophageal dysmotility remains in the differential. Harinder Hinton MD 11/12/16 1223 . Assessment & Plan Patient is a pleasant 86-year-old female with COPD, type 2 diabetes mellitus, hypertension and CAD presenting with right sided thoracic pain and admitted for pulmonary emboli.Hospital day #5 Acute right sided pulmonary emboli. Present on admission. Active -CT chest angio shows pulmonary emboli in the right lower lobe involving several segmental branches and the right lower lobe pulmonary artery -Uncertain etiology but likely provoked from being sedentary due to hip pain and recent URI -Pt now on Lovenox to bridge with warfarin -Warfarin has been started, managed by pharmacy -INR this morning 2.5 -Pt reports desaturation while active, tomorrow will have RT evaluate pt for home O2. Acute complaint of dysphagia, not present on admission, ongoing -Swallow evaluation recommended thin liquids and Barium swallow evaluation -Barium swallow evaluation demonstrated 'Distal esophageal stricture which although may be related to inflammatory stricture, neoplastic stricture cannot be excluded" -GI was consulted, we appreciate their assistance and input. -EGD demonstrating "Subtle sliding hiatal hernia.No stricture, no mass lesion in the esophagus.Minimal gastropathy.Benign appearing Roxy's duodenal hyperplasia" Acute urinary tract infection with streptococcus enterococci, not present on admission, ongoing -Pt received 3 doses Cipro 250mg. Then medication was discontinued and different antibiotic started for other infection -Pt has severe PCN allergy, thus ceftriaxone was not utilized. -Pt is asymptomatic Acute productive cough, not present on admission, ongoing -Possible causes include pneumonia or copd exacerbation -CXR was done due to complaint of cough, thought secondary to dysphagia -CXR demonstrated "Bibasilar atelectasis versus aspiration or pneumonia, left greater than right". -Likely secondary to dysphagia and possible aspiration pneumonia or COPD exacerbation -Procalcitonin was mildly elevated at 0.92, repeat was 0.32 -Levaquin 750mg PO daily x 7 days -Albuterol nebulizers q 4 hours scheduled -Prednisone 40mg daily for 5 days started today Acute kidney injury likely secondary to dehydration, not present on admission, resolving -Patient's creatinine has normalized -IV fluids continued NS 100 mls/hour -continue to monitor with daily labs. Transaminitis and elevated alkaline phosphatase, chronic. Present on admission. resolved -Outpatient records show mild elevations since 2010 -Uncertain etiology -AST, AST, alkaline phosphatase are all improved -Continue to follow with CMP Non-insulin using Type 2 diabetes mellitus. Present on admission -HbA1c 6.4% (05/10/2016) -Bedside blood glucose checks Coronary artery disease, chronic. Present on admission -Continue home dose statin, ASA Hypertension, chronic. Present on admission -Continue home antihypertensives COPD, chronic. Present on admission -Continue home inhaler and nebulizers VTE Prophylaxis: Other VTE Mechanical Devices: Intermittant Pneumatic CD Resuscitation Status: CPR: Attempt Resuscitation Attending Statement The patient was seen and examined together with Dr. Luke on 11/14/2016 and I agree with the history, exam and plan as outlined in the note above. Liliana Luke DO Nov 14, 2016 18:09 Aiden Claudio MD Nov 15, 2016 13:27
[2016-11-14] MEDS: HYDROmorphone 1 mg/mL Inj IVPUSH PRN (22:51)
[2016-11-15] VITALS (14 sets, daily range): BP systolic 126–154; BP diastolic 69–81; PULSE 76–97; RESP 18–20; O2SAT 94–100
[2016-11-15] MEDS: Albuterol 2.5 mg/3 mL Inhalation Solution NEB SCH ×7 (01:08→23:41)
[2016-11-15] MEDS: HYDROcodone-APAP 5-325 mg Tablet PO PRN ×4 (02:31→23:14)
[2016-11-15] MEDS: Pantoprazole 20 mg ER24 Tablet PO SCH ×2 (06:29→20:27)
[2016-11-15] MEDS: HYDROmorphone 1 mg/mL Inj IVPUSH PRN ×3 (06:32→19:35)
--- NOTE | 2016-11-15 06:41 | NUR ---
Abdominal Pain Pt c/o severe abdomen cramping up to 10/10, loose brown stool multiple times after Miralax given in the day shift, pt states unable to tolerate stool softener Miralax. Dakota givenx2, Dilaudid for uncontrolled pain by Dakota, warm pack tried, not effective. Pain improved to tolerable level with above interventions.
[2016-11-15 07:33] LABS: INR 1.12 ratio
[2016-11-15 07:50] LABS: BASOPHILS % (AUTO) 0.3 % (0-3); EOSINOPHILS % (AUTO) 0 % (0-5); MONOCYTES % (AUTO) 12.4 % (4-12); Mean Corpuscular Hemoglobin 27.6 pg (27.0-35.0); Mean Corpuscular Volume 84.6 fL (81-100); NEUTROPHILS % (AUTO) 73.6 % (40-74); Platelet Count 144 bil/L (150-400)
[2016-11-15] MEDS: levoFLOXacin 750 mg Tablet PO SCH (07:51)
[2016-11-15] MEDS: Tiotropium 18mcg/Cap 5 Capsule Inhaler Kit INHALATION SCH (07:51)
[2016-11-15] MEDS: Calcium Carbonate (Oyster Shell) 500 mg Tablet PO SCH (07:52)
[2016-11-15] MEDS: predniSONE 20 mg Tablet PO SCH (07:52)
[2016-11-15] MEDS: guaiFENesin 600 mg ER12 Tablet PO SCH ×2 (07:52→20:27)
[2016-11-15] MEDS: Arformoterol 15 mCg/2 mL Inhalation Solution NEB SCH ×2 (09:12→19:40)
[2016-11-15 10:44] LABS: INR 4.12 ratio
--- NOTE | 2016-11-15 12:01 | PCM.PHAPRO ---
Progress Date of Service: Nov 15, 2016 ANTICOAGULATION MANAGEMENT BY PHARMACY -INDICATION: PE -CONCURRENT ANTICOAGULATION: LOVENOX 80 MG BID -CRCL: 34.51 ML/MIN -COAG TRENDS: -Nov 14-Nov 15-Nov 1.97 2.5 1.12 0.81 0.53 -1.38 3 5 MG HOLD -[id number] SCORE: 6 PLAN: INR CAME BACK THIS AM @1.2, REPEAT DRAW 3 HOURS LATER SHOWED 4.12. PER MD CONSULT HOLD DOSE [facility] Pharmacy appreciates consult and will continue to monitor. THANKS! Keysha Keenan PharmD Nov 15, 2016 12:01
--- NOTE | 2016-11-15 12:04 | PCM.PHAPRO ---
Progress Date of Service: Nov 15, 2016 ANTICOAGULATION MANAGEMENT BY PHARMACY -INDICATION: AFIB -HOME DOSE: 7.5mg on Mon and Fri, 5mg all of the other days of the week -CONCURRENT ANTICOAGULATION: NONE -CRCL: 25.6 ML/MIN -COAG TRENDS: -Nov 14-Nov 15-Nov 1.91 2.40 3.89 ~ 0.49 1.49 5 5 MG HOLD -[id number] SCORE: 6 PLAN: PATIENT SUPRATHERAPEUTIC, WILL HOLD DOSE TONIGHT IN ANTICIPATION OF INR DECREASING BACK INTO RANGE TOMORROW. HEPARIN BOLUSUS D/C PER MD CONSULT Pharmacy appreciates consult and will continue to monitor. THANKS! Keysha Keenan PharmD Nov 15, 2016 12:04
--- NOTE | 2016-11-15 13:32 | NUR ---
Social Work Readiness for Discharge: SW spoke to [facility] of rep Morena, who states that patient accepted to SNF and bed available. SW advised patient and left message for daughter Queenie, . Further lab testings and INR checks today per report in rounds. SW will continue to follow pending further clinical course. PLAN: Accepted at [facility] of pending clinical course. SW will continue to follow. Ligia MATHIAS
--- NOTE | 2016-11-15 13:36 | NUR ---
SAMANTHA completed with patient at bedside
--- NOTE | 2016-11-15 15:31 | PCM.PNMED ---
Subjective Date of Service Nov 15, 2016 Subjective Patient reports that she continues to feel fatigued. Pt reports that her cough and shortness of breath has improved significantly improved from the previous day. Patient reports that her right-sided chest pain is almost completely resolved, and denies any pain with deep inspiration. Patient reports that her cough has become significantly less frequent, and states that she has less mucus production. Patient reports that yesterday she informed the nurse she was constipated and was given MiraLAX, she says after the MiraLAX she spent most of the night having bowel movements and some abdominal cramping. Patient reports that this is since improved, but she states she will never take MiraLAX again. Exam Vital Signs Vital Sign - Last Date Time Temp Pulse Resp B/P Pulse Ox O2 Delivery O2 Flow Rate FiO2 11/15/16 14:13 36.6 86 18 148/74 98 Room Air 11/13/16 14:02 3.00 Intake and Output 11/14/16 11/14/16 11/15/16 Cumulative From/Thru 15:00 23:00 07:00 11/09/16 01:43 - 11/15/16 06:58 Intake Total 400 ml 200 ml 32592 ml Output Total 600 ml 200 ml 36152 ml Balance -200 ml 0 ml 2161 ml Intake Oral 400 ml 200 ml 4956 ml IV Total 7830 ml Output Urine Total 600 ml 58197 ml Urine/Stool Mix 200 ml 200 ml # Voids 8 # Bowel Movements 5 8 Exam General: No acute distress, well-developed, well-nourished, appropriately interactive HEENT: Normocephalic, atraumatic. External ears without defect. Pupils equal, round, and reactive to light and accommodation. Moist conjunctivae. Oropharynx with moist mucosa. Neck: Supple with full range of motion. Cardiovascular: Regular rate and rhythm with no murmurs, rubs, or gallops appreciated Pulmonary: No pain with inspiration or expiration. No crackles auscultated. Minimally coarse lung sounds throughout. No wheezing auscultated. Occasional productive cough.Normal respiratory effort with no use of accessory muscles. No nasal cannula or supplemental oxygen Abdomen: Bowel tones present. Soft, nontender, nondistended. Extremities: Mild pitting edema at the ankles bilaterally Skin: Normal temperature, turgor, and texture; no rash, ulcers, or subcutaneous nodules appreciated. Psychiatric: Normal mood and affect. Alert and oriented to person, place, and time. IVs and Medications Medications Reviewed: Medications were reviewed in detail Lab and Diagnostics Result Diagram: 11/15/16 0700 11/15/16 0848 Microbiology Influenza screen negative. Urine culture grew enterococcus faecalis resistant to tetracycline. Stool occult blood positive. . X-Rays, CTs and MRIs CT ANGIO CHEST PULMONARY EMBOLISM IMPRESSION: 1. Central pulmonary emboli involving the right lower lobe lobar artery and segmental arteries. 2. A small right pleural effusion. 3. A 5 mm groundglass nodule in the right middle lobe. 4. Mild cardiomegaly and small pericardial effusion. No significant discrepancy with the greige goods inspector radiology preliminary report. Fleischner Society criteria for SUB-SOLID lung nodule followup. Solitary pure ground-glass nodules5 mm or lessNo followup needed. >5 mm3 mo follow-up CT to confirm persistence. Then annual CT for 3 years. Part-solid nodules3 mo follow-up CT to confirm persistence. If persistent with solid component <5 mm, annual CT for at least 3 years. If solid component is 5 mm or more, biopsy or surgical resection. Consider PET-CT for lesions > 10 mm. Multiple sub-solid nodulesPure ground glass nodules [address] at 2 and 4 years. Pure ground glass nodules >5 mm without dominant lesion. [address] to confirm persistence, then annual followup CT for at least 3 years. Dominant nodule(s) with part-solid or solid component. [address] to confirm persistence. If persistent, consider biopsy or surgical resection, wing if lesions have >5 mm solid component. Dictated by: Travis Vasquez M.D. on 11/09/2016 at 9:29 Approved by: Travis Vasquez M.D. on 11/09/2016 at 9:41 X-RAY CHEST ONE VIEW, PORTABLE IMPRESSION: Bibasilar atelectasis versus aspiration or pneumonia, left greater than right. Dictated by: Charan Garcia RRA Interpreted: Travis Vasquez MD on 11/11/2016 at 11:11 Transcribed by: CHERI on 11/11/2016 at 11:12 Approved by: Travis Vasquez M.D. on 11/11/2016 at 15:16 . Cardiac Echo Impressions Echocardiogram Interpretation Summary: 1) Normal left ventircular thickness, size, wall motion, and systolic function (EF 60-65%). 2) Upper normal right ventricular size with low normal systolic function. 3) Mild to moderate tricuspid regurgitation. 4) Pulmonary hypertension present, systolic pulmonary artery pressure estimated at 59 mmHg assuming a right atrial pressure of 8 mm Hg. 5) Compared to the Echo on 06/23/2015, pulmonary artery pressures are higher on today's study. Reading Physician:04:38 PM . Additional Diagnostics X-RAY BARIUM SWALLOW ESOPHAGUS IMPRESSION: Distal esophageal stricture which although may be related to inflammatory stricture, neoplastic stricture cannot be excluded and endoscopy is recommended. Dictated by: Charan Garcia RRCarmine Interpreted: Dion Toth MD on 11/11/2016 at 15: 21 Transcribed by: SHELBY on 11/11/2016 at 15:23 Esophagogastroduodenoscopy. FINDINGS: 1. Duodenum: There was some mild Roxy's hyperplasia evident in the proximal duodenal bulb. Otherwise, no mucosal abnormalities throughout, to the second portion. 2. Stomach: No ulcers, no mass lesion. No outlet obstruction. Minimal nonspecific gastropathy was seen throughout. Retroflexed views of the LES did not disclose any mass lesion or other significant pathology. 3. Esophagus: The squamocolumnar junction correlated with the top of the gastric folds. The GE junction was at about 42 cm from the incisors. There was a subtle sliding hiatal hernia. No significant mucosal abnormality was appreciated in the distal esophagus. The patient had some pooled liquid in the body of the esophagus that was suggestive of suboptimal motility. There was no evidence of mass, no evidence of inflammation. ENDOSCOPIC DIAGNOSES: 1. Subtle sliding hiatal hernia. 2. No stricture, no mass lesion in the esophagus. 3. Minimal gastropathy. 4. Benign appearing Roxy's duodenal hyperplasia. RECOMMENDATIONS: 1. The patient is cleared to restart diabetic diet as tolerated. 2. I would recommend she be in a seated upright position for any p.o. intake. 3. From a gastroenterology perspective, it would be fine to resume anticoagulation as indicated. 4. Should there be any recurrent symptoms or complaints of dysphagia, I would recommend manometry. Achalasia or other esophageal dysmotility remains in the differential. Harinder Hinton MD 11/12/16 1223 . Assessment & Plan Patient is a pleasant 86-year-old female with COPD, type 2 diabetes mellitus, hypertension and CAD presenting with right sided thoracic pain and admitted for pulmonary emboli.Hospital day #5 Acute right sided pulmonary emboli. Present on admission. Active -CT chest angio shows pulmonary emboli in the right lower lobe involving several segmental branches and the right lower lobe pulmonary artery -Uncertain etiology but likely provoked from being sedentary due to hip pain and recent URI -Pt now on Lovenox to bridge with warfarin -Warfarin being managed by pharmacy -INR this morning 1.12 then repeat found to be 4.12. Given elevated INR we will be holding the warfarin per pharmacy today -RT evaluated patient for home O2, supplemental oxygen not found to be necessary. Acute complaint of dysphagia, not present on admission, ongoing -Swallow evaluation recommended thin liquids and Barium swallow evaluation -Barium swallow evaluation demonstrated 'Distal esophageal stricture which although may be related to inflammatory stricture, neoplastic stricture cannot be excluded" -GI was consulted, we appreciate their assistance and input. -EGD demonstrating "Subtle sliding hiatal hernia.No stricture, no mass lesion in the esophagus.Minimal gastropathy.Benign appearing Roxy's duodenal hyperplasia" -Patient reporting improvement of symptoms, recommend outpatient follow-up Acute urinary tract infection with streptococcus enterococci, not present on admission, ongoing -Pt received 3 doses Cipro 250mg. Then medication was discontinued and different antibiotic started for other infection -Pt has severe PCN allergy, thus ceftriaxone was not utilized. -Pt is asymptomatic Acute productive cough, not present on admission, ongoing -Possible causes include pneumonia or copd exacerbation -CXR was done due to complaint of cough, thought secondary to dysphagia -CXR demonstrated "Bibasilar atelectasis versus aspiration or pneumonia, left greater than right". -Likely secondary to dysphagia and possible aspiration pneumonia or COPD exacerbation -Procalcitonin was mildly elevated at 0.92, repeat was 0.32 -Levaquin 750mg PO daily x 7 days (treatment day #4) -Albuterol nebulizers q 4 hours scheduled -Prednisone 40mg daily for 5 days (treatment day #2) Acute kidney injury likely secondary to dehydration, not present on admission, resolving -Patient's creatinine has normalized -continue to monitor with daily labs. Transaminitis and elevated alkaline phosphatase, chronic. Present on admission. resolved -Outpatient records show mild elevations since 2010 -Uncertain etiology -AST, AST, alkaline phosphatase are all improved -Continue to follow with CMP Non-insulin using Type 2 diabetes mellitus. Present on admission -HbA1c 6.4% (05/10/2016) -Bedside blood glucose checks Coronary artery disease, chronic. Present on admission -Continue home dose statin, ASA Hypertension, chronic. Present on admission -Continue home antihypertensives COPD, chronic. Present on admission -Continue home inhaler and nebulizers Disposition: Patient to discharge to [facility] [place] VTE Prophylaxis: Other VTE Mechanical Devices: Intermittant Pneumatic CD Resuscitation Status: CPR: Attempt Resuscitation Attending Statement The patient was seen and examined together with Dr. Luke on 11/15/2016 and I agree with the history, exam and plan as outlined in the note above. Liliana Luke DO Nov 15, 2016 15:31 Aiden Claudio MD Nov 16, 2016 12:43
--- NOTE | 2016-11-15 18:21 | NUR ---
Abdominal Pain Pt continues to complain of intermittent abdominal cramping. Did have several loose stools this am [r/t miralax previously given], but stools slowed down over the day, and pt only having cramping gas pains at this time. Rating pain at 5-8/10 when cramps come on. Treated with PRN norco x2 and dilaudid x1. Md aware of continuing pains.
[2016-11-16] VITALS (8 sets, daily range): BP systolic 108–161; BP diastolic 67–77; PULSE 74–88; RESP 16–18; O2SAT 94–99
[2016-11-16] MEDS: HYDROmorphone 1 mg/mL Inj IVPUSH PRN ×2 (01:46→07:22)
[2016-11-16] MEDS: HYDROcodone-APAP 5-325 mg Tablet PO PRN ×2 (04:35→14:47)
[2016-11-16] MEDS: Albuterol 2.5 mg/3 mL Inhalation Solution NEB SCH ×3 (04:55→14:07)
--- NOTE | 2016-11-16 05:21 | NUR ---
Abdominal pain Pt c/o abdominal cramping 4-7/10,overall better than previous night. up to BSC frequently,smear loose brown stool each time. Abdomen soft,tenderness at mid lower quadrant. BT hypoactive. Pain eased after passing gas per pt. MD aware and not concerned per day shift and pt report. Chitina or Dilaudid given per pt requests. k-pad applied on abdomen. Encourage ambulation, pt states feel "too weak" to walk. Pain down to 0/10 between pain med needed.
[2016-11-16] MEDS: Pantoprazole 20 mg ER24 Tablet PO SCH (06:12)
[2016-11-16 06:24] LABS: BASOPHILS % (AUTO) 0.1 % (0-3); EOSINOPHILS % (AUTO) 0.4 % (0-5); MONOCYTES % (AUTO) 12.5 % (4-12); Mean Corpuscular Hemoglobin 27.8 pg (27.0-35.0); Mean Corpuscular Volume 85.1 fL (81-100); NEUTROPHILS % (AUTO) 66.6 % (40-74); Platelet Count 178 bil/L (150-400)
[2016-11-16] MEDS: guaiFENesin 600 mg ER12 Tablet PO SCH (08:05)
[2016-11-16] MEDS: Calcium Carbonate (Oyster Shell) 500 mg Tablet PO SCH (08:06)
[2016-11-16] MEDS: levoFLOXacin 750 mg Tablet PO SCH (08:06)
[2016-11-16] MEDS: predniSONE 20 mg Tablet PO SCH (08:06)
[2016-11-16] MEDS: Tiotropium 18mcg/Cap 5 Capsule Inhaler Kit INHALATION SCH (08:06)
[2016-11-16] MEDS: Arformoterol 15 mCg/2 mL Inhalation Solution NEB SCH (09:06)
[2016-11-16 10:32] LABS: INR 3.42 ratio
--- NOTE | 2016-11-16 11:52 | PCM.PHAPRO ---
Progress Date of Service: Nov 16, 2016 ANTICOAGULATION MANAGEMENT BY PHARMACY -INDICATION: PE -CONCURRENT ANTICOAGULATION: LOVENOX 80 MG BID -CRCL: 34.51 ML/MIN -COAG TRENDS: -Nov 14-Nov 15-Nov 16-Nov 1.97 2.5 4.12 3.42 0.81 0.53 1.62 -0.7 3 5 MG HOLD HOLD -[id number] SCORE: 6 PLAN: INR DECREASING APPROPRIATELY, WILL HOLD DOSE TONIGHT AND PATIENT IS TO BE DISCHARGED ON NEW HOME DOSE OF 3 MG AND TO FOLLOW UP WITH INR CLINIC TO MONITOR Pharmacy appreciates consult and will continue to monitor. THANKS! Keysha Keenan PharmD Nov 16, 2016 11:52
--- NOTE | 2016-11-16 13:05 | NUR ---
XRAY Pt left unit via wheelchair for XRAY
--- NOTE | 2016-11-16 13:17 | DRSVH ---
PROCEDURE: X-RAY ACUTE ABDOMINAL SERIES ([id number]) INDICATIONS: abdominal pain TECHNIQUE: One view chest and two views of the abdomen were acquired. COMPARISON: [facility], CR, XR CHEST 1VW (PORTABLE), 11/11/2016, 10:06. FINDINGS: Surgical changes and devices: Left-sided pacer. Chest: No change in mild right low basilar pneumonia. Heart size is normal. No change in small right pleural effusion. No pneumothorax. No pneumoperitoneum. Abdomen: Bowel gas pattern is normal. Contrast within the colon is present, militating against bowel obstruction. No suspicious calcifications. Visualized solid organ contours appear normal. Bones: No suspicious bony lesions. IMPRESSION: 1. No change in right basilar pneumonia with small parapneumonic effusion. Continued plain film surve illance is recommended to ensure resolution, and to exclude underlying or central malignancy. 2. No evidence of bowel obstruction. Dictated by: Demond Blanchard M.D. on 11/16/2016 at 13:14 Approved by: Demond Blanchard M.D. on 11/16/2016 at 13:15
--- NOTE | 2016-11-16 13:21 | NUR ---
Returned to unit Pt returned to room. Placed in chair. I helped pt return to bed as she stated she wanted to rest. Pt has call light and bed is in low position. Pt has heating pad on abdomen, but has not complained of pain again since executive services administrator.
[2016-11-16] MEDS ORDERED: WARF3TAB7 PO (14:29)
--- NOTE | 2016-11-16 14:32 | PCM.DIMED ---
Liliana Luke DO 11/16/16 1432: Discharge Instructions Date of Service Nov 16, 2016 Dates of Hospitalization Nov 09, 2016 at 03:56 Discharge Diagnosis Discharge Diagnosis Acute right sided pulmonary emboli. Present on admission. Active Acute complaint of dysphagia, not present on admission, ongoing Acute urinary tract infection with streptococcus enterococci, not present on admission, ongoing Acute productive cough, not present on admission, ongoing Acute kidney injury likely secondary to dehydration, not present on admission, resolving Transaminitis and elevated alkaline phosphatase, chronic. Present on admission. resolved Non-insulin using Type 2 diabetes mellitus. Present on admission Coronary artery disease, chronic. Present on admission Hypertension, chronic. Present on admission COPD, chronic. Present on admission Diet No restrictions, Low fat, Low Sodium, Heart Healthy, Diabetic, Renal Diet Activity No restrictions Call your provider Fever or Chills, Shortness of breath, Bleeding, Chest pain, Vomitting, Excessive diarrhea, Weakness (unilateral) Patient Instructions You are being discharged to [facility]. You have been started on Warfarin, this will need to be checked regularly, in case changes need to be made to your doses. Continue with your home medications. Follow up with your primary care provider. Follow-up Provider: Jayce Gifford MD Follow-up with PCP in: 1 week Aiden Claudio MD 11/24/16 1350: Liliana Luke DO Nov 16, 2016 14:32 Aiden Claudio MD Nov 24, 2016 13:50
[2016-11-16] MEDS ORDERED: LEVO750T9 PO (14:36)
[2016-11-16] MEDS ORDERED: PRED-508 PO (14:36)
--- NOTE | 2016-11-16 14:49 | NUR ---
Social Work: Discharge Data: Pt is on day 7 of hospitalization. EMR reviewed. Pt's D/C orders are in. [employer] spoke with pt's contact Queenie about d/c. [employer] spoke with [facility] Jose Trinh, who states they can take pt today and they are setting up transportation for 4:00pm today. [employer] notified RN, pt, pt family, UA, and MD. No further d/c planning needs anticipated at this time. [employer] will continue to follow if needs arise. Assessment: Pt who is independent at baseline. Plan: Pt will d/c to [facility] [place] at 4:00pm today via wheelchair van. No further d/c planning needs anticipated at this time. [employer] will continue to follow if needs arise. STEW Khan
--- NOTE | 2016-11-16 16:04 | NUR ---
Discharge Pt discharged to [facility] at 1558. Transported off unit in wheelchair by transporter, accompanied by family and GLASS INSPECTOR. All pt belongings sent with pt. Report called to Melissa OSBORN. Transport paperwork sent with pt. Family and patient understanding and accepting of transfer.
--- NOTE | 2016-11-17 22:13 | PCM.DC.MED ---
Discharge Summary Date of Service Nov 16, 2016 Dates of Hospitalization Date of Hospital Admission Nov 09, 2016 at 03:56 Date of Discharge: Nov 16, 2016 Providers: Admitting Physician: Damien Perez MD Primary Care Physician: Jayce Gifford MD Attending Physician: Damien Perez MD Diagnosis at Time of Discharge Diagnosis at Time of Discharge Acute right sided pulmonary emboli. Present on admission. Active Acute complaint of dysphagia, not present on admission, ongoing Acute urinary tract infection with streptococcus enterococci, not present on admission, ongoing Acute productive cough, not present on admission, ongoing Acute kidney injury likely secondary to dehydration, not present on admission, resolving Transaminitis and elevated alkaline phosphatase, chronic. Present on admission. resolved Non-insulin using Type 2 diabetes mellitus. Present on admission Coronary artery disease, chronic. Present on admission Hypertension, chronic. Present on admission COPD, chronic. Present on admission Consultations GI Procedures XRay, CTs & MRIs CT ANGIO CHEST PULMONARY EMBOLISM IMPRESSION: 1. Central pulmonary emboli involving the right lower lobe lobar artery and segmental arteries. 2. A small right pleural effusion. 3. A 5 mm groundglass nodule in the right middle lobe. 4. Mild cardiomegaly and small pericardial effusion. No significant discrepancy with the maintenance mechanic 2nd shift radiology preliminary report. Fleischner Society criteria for SUB-SOLID lung nodule followup. Solitary pure ground-glass nodules5 mm or lessNo followup needed. >5 mm3 mo follow-up CT to confirm persistence. Then annual CT for 3 years. Part-solid nodules3 mo follow-up CT to confirm persistence. If persistent with solid component <5 mm, annual CT for at least 3 years. If solid component is 5 mm or more, biopsy or surgical resection. Consider PET-CT for lesions > 10 mm. Multiple sub-solid nodulesPure ground glass nodules [address] at 2 and 4 years. Pure ground glass nodules >5 mm without dominant lesion. [address] to confirm persistence, then annual followup CT for at least 3 years. Dominant nodule(s) with part-solid or solid component. [address] to confirm persistence. If persistent, consider biopsy or surgical resection, wing if lesions have >5 mm solid component. Dictated by: Travis Vasquez M.D. on 11/09/2016 at 9:29 Approved by: Travis Vasquez M.D. on 11/09/2016 at 9:41 X-RAY CHEST ONE VIEW, PORTABLE IMPRESSION: Bibasilar atelectasis versus aspiration or pneumonia, left greater than right. Dictated by: Charan MUELLER Interpreted: Travis Vasquez MD on 11/11/2016 at 11:11 Transcribed by: CHERI on 11/11/2016 at 11:12 Approved by: Travis Vasquez M.D. on 11/11/2016 at 15:16 . Cardiac Echo Impression Echocardiogram Interpretation Summary: 1) Normal left ventircular thickness, size, wall motion, and systolic function (EF 60-65%). 2) Upper normal right ventricular size with low normal systolic function. 3) Mild to moderate tricuspid regurgitation. 4) Pulmonary hypertension present, systolic pulmonary artery pressure estimated at 59 mmHg assuming a right atrial pressure of 8 mm Hg. 5) Compared to the Echo on 06/23/2015, pulmonary artery pressures are higher on today's study. Reading Physician:04:38 PM . Other Diagnostics X-RAY BARIUM SWALLOW ESOPHAGUS IMPRESSION: Distal esophageal stricture which although may be related to inflammatory stricture, neoplastic stricture cannot be excluded and endoscopy is recommended. Dictated by: Charan MUELLER Interpreted: Dion Toth MD on 11/11/2016 at 15: 21 Transcribed by: SHELBY on 11/11/2016 at 15:23 Esophagogastroduodenoscopy. FINDINGS: 1. Duodenum: There was some mild Roxy's hyperplasia evident in the proximal duodenal bulb. Otherwise, no mucosal abnormalities throughout, to the second portion. 2. Stomach: No ulcers, no mass lesion. No outlet obstruction. Minimal nonspecific gastropathy was seen throughout. Retroflexed views of the LES did not disclose any mass lesion or other significant pathology. 3. Esophagus: The squamocolumnar junction correlated with the top of the gastric folds. The GE junction was at about 42 cm from the incisors. There was a subtle sliding hiatal hernia. No significant mucosal abnormality was appreciated in the distal esophagus. The patient had some pooled liquid in the body of the esophagus that was suggestive of suboptimal motility. There was no evidence of mass, no evidence of inflammation. ENDOSCOPIC DIAGNOSES: 1. Subtle sliding hiatal hernia. 2. No stricture, no mass lesion in the esophagus. 3. Minimal gastropathy. 4. Benign appearing Roxy's duodenal hyperplasia. RECOMMENDATIONS: 1. The patient is cleared to restart diabetic diet as tolerated. 2. I would recommend she be in a seated upright position for any p.o. intake. 3. From a gastroenterology perspective, it would be fine to resume anticoagulation as indicated. 4. Should there be any recurrent symptoms or complaints of dysphagia, I would recommend manometry. Achalasia or other esophageal dysmotility remains in the differential. Harinder Hinton MD 11/12/16 1223 . Brief History Per Dr Nunez's H&P "Patient is a pleasant 86-year-old female with COPD, type 2 diabetes mellitus, hypertension and CAD presenting with right sided thoracic pain. Patient reports onset of the pain yesterday (11/08/2016) at approximately 20:00. The patient states the pain is just inferior to her right chest and exacerbated with breathing and movement. Patient reports a cough since October with production of thick, off-yellow sputum. The pain prompted the patient to summon EMS and she was brought to [facility] ED for further evaluation. In the ED, CT chest angiogram was performed and identified pulmonary emboli in the right lower lobe involving several segmental branches and the right lower lobe pulmonary artery. Patient denies hemoptysis, chest pain, shortness of breath, fever, chills, worsening lower extremity swelling. Patient reports being more sedentary over the past several months due to right hip pain. She is scheduled to undergo a hip replacement at the end of this month. Patient denies family history of coagulopathy and denies any long car rides or airplane flights. In the ED, vitals: temp 37.3, HR 106, RR 22 satting 93%, BP 166/75. Notable labs : mild transaminitis with AST 54, ALT 55 and alkaline phosphatase 175. D-dimer 7.5." Hospital Course Patient is a pleasant 86-year-old female with COPD, type 2 diabetes mellitus, hypertension and CAD presenting with right sided thoracic pain and admitted for pulmonary emboli.Hospital day #5 Acute right sided pulmonary emboli. Present on admission. -CT chest angio showed pulmonary emboli in the right lower lobe involving several segmental branches and the right lower lobe pulmonary artery -Uncertain etiology but likely provoked from being sedentary due to hip pain and recent URI -Warfarin 3 mg daily, will need to be monitored -RT evaluated patient for home O2, supplemental oxygen not found to be necessary. Acute complaint of dysphagia, not present on admission, -Swallow evaluation recommended thin liquids and Barium swallow evaluation -Barium swallow evaluation demonstrated 'Distal esophageal stricture which although may be related to inflammatory stricture, neoplastic stricture cannot be excluded" -EGD demonstrating "Subtle sliding hiatal hernia.No stricture, no mass lesion in the esophagus.Minimal gastropathy.Benign appearing Roxy's duodenal hyperplasia" -Patient reporting improvement of symptoms, recommend outpatient follow-up Acute urinary tract infection with streptococcus enterococci, not present on admission, -Pt received 3 doses Cipro 250mg. Then medication was discontinued and different antibiotic started for other infection -Pt has severe PCN allergy, thus ceftriaxone was not utilized. -Pt is asymptomatic Acute productive cough, not present on admission, -CXR was done due to complaint of cough, thought secondary to dysphagia -CXR demonstrated "Bibasilar atelectasis versus aspiration or pneumonia, left greater than right". -Likely secondary to dysphagia and possible aspiration pneumonia or COPD exacerbation -Procalcitonin was mildly elevated at 0.92, repeat was 0.32 -Levaquin 750mg PO daily x 7 days -Albuterol nebulizers q 4 hours scheduled -Prednisone 40mg daily for 5 days Acute kidney injury likely secondary to dehydration, not present on admission -Patient's creatinine has normalized Transaminitis and elevated alkaline phosphatase, chronic. Present on admission. resolved -Outpatient records show mild elevations since 2010 -Uncertain etiology -AST, AST, alkaline phosphatase are all improved Non-insulin using Type 2 diabetes mellitus. Present on admission -HbA1c 6.4% (05/10/2016) Coronary artery disease, chronic. Present on admission -Continue home dose statin, ASA Hypertension, chronic. Present on admission -Continue home antihypertensives COPD, chronic. Present on admission -Continue home inhaler and nebulizers Exam Vital Signs (Last) Date Time Temp Pulse Resp B/P Pulse Ox O2 Delivery O2 Flow Rate FiO2 11/16/16 14:08 82 16 98 Room Air 11/16/16 13:54 36.6 108/67 11/13/16 14:02 3.00 Exam General: No acute distress, well-developed, well-nourished, appropriately interactive HEENT: Normocephalic, atraumatic. External ears without defect. Pupils equal, round, and reactive to light and accommodation. Moist conjunctivae. Oropharynx with moist mucosa. Neck: Supple with full range of motion. Cardiovascular: Regular rate and rhythm with no murmurs, rubs, or gallops appreciated Pulmonary: No pain with inspiration or expiration. No crackles auscultated. Minimally coarse lung sounds throughout. No wheezing auscultated. Occasional productive cough.Normal respiratory effort with no use of accessory muscles. No nasal cannula or supplemental oxygen Abdomen: Bowel tones present. Soft, nontender, nondistended. Extremities: Mild pitting edema at the ankles bilaterally Skin: Normal temperature, turgor, and texture; no rash, ulcers, or subcutaneous nodules appreciated. Psychiatric: Normal mood and affect. Alert and oriented to person, place, and time. Test 11/09/16 01:57 11/10/16 07:56 11/13/16 14:53 11/14/16 05:35 D-Dimer 7.5mg/L (<0.50) Magnesium Level 1.9mg/dL (1.6-2.6) Troponin T 0.010ug/L (0.0-0.011) Urine Color Yellow (YELLOW) Urine Appearance Hazy (CLEAR,HAZY) Urine pH 5.0 (5.0-8.0) Urine Specific [place] 1.020 (1.003-1.035) Urine Protein Negativemg/dL (NEG,TRACE) Urine Glucose (UA) Negativemg/dL (NEGATIVE) Urine Ketones Negativemg/dL (NEGATIVE) Urine Occult Blood Negative (NEGATIVE) Urine Nitrite Negative (NEGATIVE) Urine Bilirubin Negative (NEGATIVE) Urine Urobilinogen 0.2mg/dL (NORMAL) Urine Leukocyte Esterase Small (NEGATIVE) Urine RBC 0-2/hpf (0-2) Urine WBC >50/hpf (0-5) Urine Epithelial Cells Few/hpf (NONE-MOD) Urine Crystals None seen (NONE SEEN) Urine Bacteria Many/hpf (NONE-FEW) Urine Hyaline Casts Rare/lpf (NONE) Urine Granular Casts None seen (NONE SEEN) Urine Waxy Casts None seen (NONE SEEN) Urine Red Blood Cell Casts None seen (NONE SEEN) Urine White Blood Cell Casts None seen (NONE SEEN) Urine Mucus Present (None Seen) Urine Trichomonas None seen (NONE SEEN) Urine Yeast None (NONE SEEN) Urinalysis Comment None Urine Culture Reflexed Indicated Hold Urine Received (Received) Activated Partial Thromboplast Time 240.0sec (22.8-33.0) Procalcitonin 0.32ng/mL (0.00-0.08) Test 11/16/16 06:10 11/16/16 09:55 White Blood Count 7.7th/mm3 (3.8-10.1) Red Blood Count 3.95mil/mm3 (3.90-5.20) Hemoglobin 11.0g/dL (12.0-15.6) Hematocrit 33.6% (35.0-46.0) Mean Corpuscular Volume 85.1fL (81-100) Mean Corpuscular Hemoglobin 27.8pg (27.0-35.0) Mean Corpuscular Hemoglobin Concent 32.7% (32.0-37.0) Red Cell Distribution Width 16.1% (12.3-15.4) Platelet Count 178bil/L (150-400) Neutrophils (%) (Auto) 66.6% (40-74) Lymphocytes (%) (Auto) 19.6% (14-46) Monocytes (%) (Auto) 12.5% (4-12) Eosinophils (%) (Auto) 0.4% (0-5) Basophils (%) (Auto) 0.1% (0-3) Sodium Level 139mEq/L (134-144) Potassium Level 4.1mEq/L (3.5-5.2) Chloride Level 102mEq/L (97-108) Carbon Dioxide Level 22mmol/L (18-29) Blood Urea Nitrogen 19mg/dL (8-27) Creatinine 0.89mg/dL (0.57-1.00) Estimat Glomerular Filtration Rate 86mL/min (>59) Glucose Level 120mg/dL (60-99) Calcium Level 8.7mg/dL (8.5-10.1) Total Bilirubin 0.3mg/dL (0.0-1.2) Aspartate Amino Transf (AST/SGOT) 29U/L (0-50) Alanine Aminotransferase (ALT/SGPT) 26U/L (0-32) Alkaline Phosphatase 172U/L (25-165) Total Protein 6.4g/dL (6.4-8.4) Albumin 3.3g/dL (3.4-5.0) Prothrombin Time 37.5sec (8.1-12.5) Prothromb Time International Ratio 3.42ratio Microbiology Results Influenza screen negative. Urine culture grew enterococcus faecalis resistant to tetracycline. Stool occult blood positive. . Discharge Medications Discharge Medications Arformoterol Tartrate (Brovana) 15 Mcg/2 Ml Vial.neb 15 MCG IH BID (Reported) Aspirin Chew (Aspirin Chew) 81 Mg Tablet 324 MG PO DAILY Prescribed by: AIRAM NOLAND MD Budesonide Neb Soln (Budesonide Neb Soln) 0.5 Mg/2 Ml Neb 0.5 MG INHALATION BID (Reported) Calcium Carbonate/Vitamin D3 (Calcium 600 + Vit D3 400 Tab) 600 Mg-400 Tablet 1 EACH PO DAILY (Reported) Cetirizine HCl (Zyrtec) 10 Mg Capsule 10 MG PO QAM (Reported) Cholecalciferol (Vitamin D3) (Vitamin D3) 2,000 Unit Tablet 2,000 UNIT PO QAM ( Reported) Famotidine (Famotidine) 20 Mg Tablet 20 MG PO BID (Reported) Fluticasone Propionate (Flonase Allergy Relief) 50 Mcg/Actuation [place].susp 1 SPRAY NS DAILY (Reported) Gabapentin (Gabapentin) 300 Mg Capsule 300 MG PO QAM (Reported) Gabapentin (Gabapentin) 300 Mg Capsule 600 MG PO HS (Reported) Levofloxacin (Levaquin) 750 Mg Tablet 750 MG PO DAILYAC Prescribed by: MOISÉS ESPINAL DO Losartan Potassium (Losartan Potassium) 50 Mg Tablet 25 MG PO BID (Reported) Multivitamin (Multivitamins) 1 Each Capsule 1 EACH PO QAM (Reported) Pravastatin (Pravastatin) 40 Mg Tablet 20 MG PO HS (Reported) Prednisone (Deltasone) 20 Mg Tablet 40 MG PO DAILY Prescribed by: MOISÉS ESPINAL DO Propranolol HCl (Propranolol HCl) 20 Mg Tablet 40 MG PO BID (Reported) Tiotropium [place] (Spiriva) 18 Mcg Cap.w.dev 18 MCG IH DAILY at 2PM (Reported) Warfarin Sodium (Warfarin Sodium) 3 Mg Tablet 3 MG PO DAILY Prescribed by: MOISÉS ESPINAL DO As needed Albuterol HFA (Proair HFA) 8.5 Gm Hfa.aer.ad 2 PUFFS INHALATION Q4H PRN PRN For Shortness of Breath (Reported) Albuterol Neb Soln (Albuterol Neb Soln) 2.5 Mg/3 Ml Vial.neb 2.5 MG INHALATION Q4H PRN PRN For Shortness of Breath (Reported) Dimenhydrinate (Dramamine) 25 Mg Tab.chew 50 MG PO BID PRN PRN For Nausea ( Reported) Hydrocodone-Acetaminophen 5-325 mg (Hydrocodone-Acetaminophen 5-325 mg) 1 Each Tablet 1 TABLET PO Q6H PRN PRN For Pain (Reported) Sennosides (Senna) 8.6 Mg Tablet 8.6 MG PO DAILY PRN PRN For Constipation Prescribed by: SASHA ZUNIGA MD Miscellaneous Medications Cyanocobalamin (Vitamin B-12) (Vitamin B-12) 500 Mcg Tab.subl 1,000 MCG SL ( Reported) Followup Plan Discharge Diet: No restrictions, Low fat, Low Sodium, Heart Healthy, Diabetic, Renal Diet Discharge Activity: No restrictions Patient Instructions You are being discharged to [facility]. You have been started on Warfarin, this will need to be checked regularly, in case changes need to be made to your doses. Continue with your home medications. Follow up with your primary care provider. Follow-up Provider: Jayce Gifford MD Follow-up with PCP in: 1 week Time spent 35 minutes Attending Statement The patient was seen and examined together with Dr. Espinal on 11/16/2016 and I agree with the history, exam and plan as outlined in the note above. copies to: Jayce Gifford MD, Tara L DO Nov 17, 2016 22:13 Aiden Claudio MD Nov 24, 2016 13:51
== END 2016-11-16 15:50 | DRG 175 ==
LOC: EDBD 01:32 → SED 01:32 → MPC 03:56
PROVIDERS: ADMIT Hospitalist; ATTEND Hospitalist
PROC: 0DJ08ZZ Inspection of Upper Intestinal Tract, Via Natural or Artificial Opening Endoscopic (ICD-10-PCS; principal; 2016-11-12 12:00)
DX: I26.99 Other pulmonary embolism without acute cor pulmonale (principal); J18.9 Pneumonia, unspecified organism; N17.9 Acute kidney failure, unspecified; J44.1 Chronic obstructive pulmonary disease with (acute) exacerbation; N39.0 Urinary tract infection, site not specified; R74.0 Nonspecific elevation of levels of transaminase and lactic acid dehydrogenase [LDH]; I10 Essential (primary) hypertension; I25.10 Atherosclerotic heart disease of native coronary artery without angina pectoris; Z87.891 Personal history of nicotine dependence; Z95.0 Presence of cardiac pacemaker; E11.9 Type 2 diabetes mellitus without complications; E78.5 Hyperlipidemia, unspecified; Z86.73 Personal history of transient ischemic attack (TIA), and cerebral infarction without residual deficits; G25.0 Essential tremor; R13.10 Dysphagia, unspecified; B95.4 Other streptococcus as the cause of diseases classified elsewhere

== ENCOUNTER 2016-11-19 11:41 | Emergency (ER) | payer MEDICARE ==
[~2016-11-19] VITALS: Ht 160 cm; Wt 93.2 kg
[~2016-11-19 11:41] MED LIST changes: +LEVO750T9 PO; -POLY17PO6 PO; -PRE20 PO; +PRED-508 PO; +WARF3TAB7 PO
[2016-11-19 11:42] VITALS: BP 129/48; PULSE 68; RESP 18; O2SAT 96
[2016-11-19] MEDS ORDERED: Ondansetron 2 mg/mL 2 mL Inj IVPUSH ONE (11:45)
[2016-11-19] MEDS ORDERED: 0.9% Sodium Chloride 1,000 ML IV ONE (11:45)
--- NOTE | 2016-11-19 11:45 | ED.REPORT ---
HPI-Abd Pain F 40 and Over Date of Service Nov 19, 2016 ED Provider: Maurice Martinez MD The patient is an 86 year old female with history of coronary artery disease, COPD, diabetes mellitus type II, hypertension, hyperlipidemia, CVA in 2014, and s/p appendectomy and cholecystectomy, who was brought to the emergency department by EMS for lower abdominal pain that has been intermittent over the last week. She was given a fentanyl patch last night at [facility] where she resides, but this did not provide any relief. She has also noticed urinary urgency along with the pain. Her pain has worsened since onset. Her pain is not worse with eating. She was admitted to this hospital from November 09- for a pulmonary embolism. She was discharged on [place]. This abdominal pain was present for a few days during her admission. It was thought to be related to constipation and she was given stool softeners. Her last bowel movement was last night. She denies nausea, vomiting, diarrhea, fever or chills. She is unsure if she has experienced dysuria or increased urinary frequency. Nursing Notes Stated Complaint: LOWER QUADRANT PAIN Chief Complaint: Female Abdominal Pain Nursing Notes Reviewed: Yes Allergies: Coded Allergies: Penicillins (Verified Allergy, Severe, Hives, facial swelling, 11/19/16) Scheduled Arformoterol Tartrate (Brovana) 15 Mcg/2 Ml Vial.neb 15 MCG IH BID Aspirin Chew (Aspirin Chew) 81 Mg Tablet 324 MG PO DAILY Budesonide Neb Soln (Budesonide Neb Soln) 0.5 Mg/2 Ml Neb 0.5 MG INHALATION BID Calcium Carbonate/Vitamin D3 (Calcium 600 + Vit D3 400 Tab) 600 Mg-400 Tablet 1 EACH PO DAILY Cetirizine HCl (Zyrtec) 10 Mg Capsule 10 MG PO QAM Cholecalciferol (Vitamin D3) (Vitamin D3) 2,000 Unit Tablet 2,000 UNIT PO QAM Famotidine (Famotidine) 20 Mg Tablet 20 MG PO BID Fluticasone Propionate (Flonase Allergy Relief) 50 Mcg/Actuation [place].susp 1 SPRAY NS DAILY Gabapentin (Gabapentin) 300 Mg Capsule 300 MG PO QAM Gabapentin (Gabapentin) 300 Mg Capsule 600 MG PO HS Levofloxacin (Levaquin) 750 Mg Tablet 750 MG PO DAILYAC Losartan Potassium (Losartan Potassium) 50 Mg Tablet 25 MG PO BID Multivitamin (Multivitamins) 1 Each Capsule 1 EACH PO QAM Pravastatin (Pravastatin) 40 Mg Tablet 20 MG PO HS Prednisone (Deltasone) 20 Mg Tablet 40 MG PO DAILY Propranolol HCl (Propranolol HCl) 20 Mg Tablet 40 MG PO BID Tiotropium [place] (Spiriva) 18 Mcg Cap.w.dev 18 MCG IH DAILY at 2PM Warfarin Sodium (Warfarin Sodium) 3 Mg Tablet 3 MG PO DAILY Scheduled PRN Albuterol HFA (Proair HFA) 8.5 Gm Hfa.aer.ad 2 PUFFS INHALATION Q4H PRN PRN For Shortness of Breath Albuterol Neb Soln (Albuterol Neb Soln) 2.5 Mg/3 Ml Vial.neb 2.5 MG INHALATION Q4H PRN PRN For Shortness of Breath Dimenhydrinate (Dramamine) 25 Mg Tab.chew 50 MG PO BID PRN PRN For Nausea Hydrocodone-Acetaminophen 5-325 mg (Hydrocodone-Acetaminophen 5-325 mg) 1 Each Tablet 1 TABLET PO Q6H PRN PRN For Pain Sennosides (Senna) 8.6 Mg Tablet 8.6 MG PO DAILY PRN PRN For Constipation Miscellaneous Medications Cyanocobalamin (Vitamin B-12) (Vitamin B-12) 500 Mcg Tab.subl 1,000 MCG SL General Time Seen by MD: 11:42 Chief Complaint Abdominal pain Hx Obtained From: Patient, EMS Arrived By: Ambulance Sudden in Onset?: No Onset Occurred: 1 week ago Symptom Duration: Intermittent Progression since Onset: Intermittent, Gradually worsening Location: : Abdomen lower Quality: Painful Radiation: : Does not radiate Severity: Current: Moderate Severity: Maximum: Severe Recent Healthcare: Recent doctor visit, Recent hospitalization Similar Sx Previous: Yes Past Medical History Past Medical History 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 Coronary artery disease. 2. Chronic obstructive pulmonary disease. 3. Diabetes mellitus, type 2. 4. TIA 2014 5. Hypertension 6. Hyperlipidemia 7. Essential tremor 8. 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 Pulmonary embolism Past Surgical History Pacemaker - 2006 Complete cardiac cath PTCA Reports: Appendectomy, Cholecystectomy, Tonsillectomy Reports: Tubal ligation Family History Noncontributory Smoking History Former Smoker Social History Alcohol Use: Denies alcohol use Drug Use: Denies drug use Other Social History: Lives alone, , Local resident Ambulatory Status Independent Review of Systems Constitutional: Denies: Chills, Fever GI: Reports: Abdominal pain, Denies: Constipation, Diarrhea, Nausea, Vomiting Female: Reports: Urinary urgency Complete sys rev & neg: except as marked. Physical Exam Vital Signs Vital Signs (First) Date Time Temp Pulse Resp B/P Pulse Ox O2 Delivery O2 Flow Rate FiO2 11/19/16 11:42 36.4 68 18 129/48 96 Room Air Initial VS: Reviewed Head / Eyes: Atraumatic, Normocephalic, PERRL ENT: Mucous membranes moist, Conjunctiva normal, No scleral icterus Neck: Supple, Non-tender, Full range of motion Lymphatic: No lymphadenopathy Extremities: Vascular intact, Neuro intact, No swelling, No tenderness Skin: Warm, Dry, No cyanosis Neurologic: Alert, Oriented, Nonfocal Psychiatric: Mood/affect normal, Behavior normal, Normal thought content General/Constitutional: Awake, Alert, Cooperative Respiratory / Chest: Atraumatic, Breath sounds NL, Breath sounds = bilat, No respiratory distress, No rales, No rhonchi, No wheezing, No stridor Cardiovascular: Heart rate NL, Regular rhythm, Heart sounds NL, No murmurs, No rubs Abdomen: Soft, No guarding, No rebound, BS normoactive, No distention Diffuse tenderness about her lower abdomen without guarding or rigidity. She has a well healed scar about her RLQ. There is ecchymosis about the right lower part of her abdomen as well. Back: No midline vertebral tend Lower Extremity / Pelvis / MS: Neurologic intact, Vascular intact, No edema No calf swelling or tenderness. Interpretation & Diagnostics Lab Results Interpretation Result Diagram: 11/19/16 1308 11/19/16 1308 Test 11/19/16 13:08 11/19/16 13:35 White Blood Count 5.8th/mm3 (3.8-10.1) Red Blood Count 3.50mil/mm3 (3.90-5.20) Hemoglobin 9.5g/dL (12.0-15.6) Hematocrit 30.2% (35.0-46.0) Mean Corpuscular Volume 86.3fL (81-100) Mean Corpuscular Hemoglobin 27.1pg (27.0-35.0) Mean Corpuscular Hemoglobin Concent 31.5% (32.0-37.0) Red Cell Distribution Width 16.3% (12.3-15.4) Platelet Count 226bil/L (150-400) Neutrophils (%) (Auto) 63.9% (40-74) Lymphocytes (%) (Auto) 20.7% (14-46) Monocytes (%) (Auto) 13.4% (4-12) Eosinophils (%) (Auto) 0.9% (0-5) Basophils (%) (Auto) 0.2% (0-3) Sodium Level 137mEq/L (134-144) Potassium Level 3.7mEq/L (3.5-5.2) Chloride Level 100mEq/L (97-108) Carbon Dioxide Level 27mmol/L (18-29) Blood Urea Nitrogen 19mg/dL (8-27) Creatinine 0.79mg/dL (0.57-1.00) Estimat Glomerular Filtration Rate 99mL/min (>59) Glucose Level 150mg/dL (60-99) Lactic Acid Level 1.6mmol/L (0.4-2.0) Calcium Level 9.1mg/dL (8.5-10.1) Total Bilirubin 0.4mg/dL (0.0-1.2) Aspartate Amino Transf (AST/SGOT) 55U/L (0-50) Alanine Aminotransferase (ALT/SGPT) 37U/L (0-32) Alkaline Phosphatase 134U/L (25-165) Total Protein 6.1g/dL (6.4-8.4) Albumin 3.1g/dL (3.4-5.0) Lipase 63U/L (13-60) Urine Color Yellow (YELLOW) Urine Appearance Clear (CLEAR,HAZY) Urine pH 6.0 (5.0-8.0) Urine Specific [place] 1.010 (1.003-1.035) Urine Protein Negativemg/dL (NEG,TRACE) Urine Glucose (UA) Negativemg/dL (NEGATIVE) Urine Ketones Negativemg/dL (NEGATIVE) Urine Occult Blood Trace (NEGATIVE) Urine Nitrite Negative (NEGATIVE) Urine Bilirubin Negative (NEGATIVE) Urine Urobilinogen Normalmg/dL (NORMAL) Urine Leukocyte Esterase Negative (NEGATIVE) Urine RBC 0-2/hpf (0-2) Urine WBC 0-5/hpf (0-5) Urine Epithelial Cells Few/hpf (NONE-MOD) Urine Crystals None seen (NONE SEEN) Urine Bacteria None/hpf (NONE-FEW) Urine Hyaline Casts None/lpf (NONE) Urine Granular Casts None seen (NONE SEEN) Urine Waxy Casts None seen (NONE SEEN) Urine Red Blood Cell Casts None seen (NONE SEEN) Urine White Blood Cell Casts None seen (NONE SEEN) Urine Mucus None seen (None Seen) Urine Trichomonas None seen (NONE SEEN) Urine Yeast None (NONE SEEN) Urinalysis Comment None Urine Culture Reflexed Not indicated CT Abd / Pelvis Interpretation No explanation for pain Study type: Abdominal CT IV contrast, Abdom CT oral contrast Interpretation / Wet Read by: Interpret - Radiologist, Discussed w radiologist Re-Eval/Medical Decision Med Decision/Clinical Course The patient is an 86 year old female with history of coronary artery disease, COPD, diabetes mellitus type II, hypertension, hyperlipidemia, CVA in 2014, and s/p appendectomy and cholecystectomy, who was brought to the emergency department by EMS for lower abdominal pain that has been intermittent over the last week. Patient is a somewhat vague historian often changing her story. She later states that her pain is crampy and only lasts about 1-2 minutes and comes/goes. Emergency department the patient is afebrile with stable vital signs and relatively benign abdominal examination. LABS: hct 30.2 which is stable, no leukocytosis, mildly elevated transaminases, lactate 1.6, CMP otherwise unremarkable, lipase at 63, UA unremarkable CT: unremarkable without evidence of inflammatory process, abscess, infection or obstruction per my conversation with attending radiologist Patient in emergency department was treated with IV fluids, Zofran and initially IV morphine. She reported complete symptom resolution. Serial abdominal examinations remained benign. Patient reports that she has been bedridden at rehabilitation for quite a while and not participating in physical therapy. She attributes some of her pain to laying in the same position for so long. She thinks that she is having "muscle spasms". At this time, I see no evidence of an acute surgical intra-abdominal process. I am reassured by the CT scan findings. Laboratory studies are additionally reassuring and she is afebrile. I do not feel that she requires admission or further workup at this time. She will be started on senna laxative. When expressing muscle cramps she will apply ice packs and hot packs. She will participate in physical therapy activities. Patient to return to the emergency room immediately should she develop any worsening symptoms, vomiting, fevers or failure of symptoms to resolve. Full range of motion precautions were reviewed in detail with patient as well as family members and they verbalized understanding and agreement with the plan. Source of Hx: Old records, EMS Re-Evaluation/Progress : Time of Eval: 15:11 Re-Evaluation/Progress Note: Rechecked the patient. She does not believe she has had normal bowel movements. Discussed results, diagnosis, and plan for discharge. All questions were addressed. Counseled Regarding: Diagnosis, Lab results, Need for follow-up, When/why to return to ED Discharge & Departure Primary Impression: Lower abdominal pain Additional Impressions: Abdominal cramping Constipation Constipation type: unspecified constipation type Qualified Code: K59.00 - Constipation, unspecified Anemia Anemia type: unspecified type Qualified Code: D64.9 - Anemia, unspecified History of DVT (deep vein thrombosis) Anticoagulated on Coumadin Disposition: Home Discharge Condition All VS Reviewed: Yes Condition: Stable Patient Instructions: Acute Abdominal Pain (ED) Additional Instructions: Thank you for seeking care at the emergency room. Our primary goal today in the ED was to evaluate you for any life-threatening conditions. Your evaluation was reassuring. I have written you a prescription for a stool softener. Make sure to drink plenty of fluids and eat foods rich in fiber. You can also try Ibuprofen for your pain. You can take 200 mg twice daily for the next 2-3 days. Continue your regularly prescribed medications. You can try applying a hot and/or ice packs if it helps. You should follow-up with your primary doctor in the next week for further evaluation. You should return to the ED immediately if you develop increased pain, fevers, chills, vomiting, diarrhea, chest pain, lightheadedness, weakness or any other concerning signs or symptoms. Thank you for letting us partake in your care today. Referrals: Jayce Gifford MD (PCP) Scribe Attestation Portions of this note were transcribed by Rachel Redmond. I, Dr. Martinez personally performed the history, physical exam and medical decision-making; I reviewed and confirmed the accuracy of the information in the transcribed note. Signed by: Reji Wright, 11/19/2016 at 1520. copies to: Jayce Gifford MD, Beck O MD Nov 19, 2016 11:45 Ruy,Rachel Ramirez Nov 19, 2016 11:56
[2016-11-19 13:18] LABS: BASOPHILS % (AUTO) 0.2 % (0-3); EOSINOPHILS % (AUTO) 0.9 % (0-5); MONOCYTES % (AUTO) 13.4 % (4-12); Mean Corpuscular Hemoglobin 27.1 pg (27.0-35.0); Mean Corpuscular Volume 86.3 fL (81-100); NEUTROPHILS % (AUTO) 63.9 % (40-74); Platelet Count 226 bil/L (150-400)
[2016-11-19 14:28] LABS: APPEARANCE,URINE CLEAR (CLEAR,HAZY); COLOR,URINE YELLOW (YELLOW); OCCULT BLOOD,URINE TRACE (NEGATIVE); UROBILINOGEN,URINE NORMAL (NORMAL)
[2016-11-19 14:55] VITALS: BP 95/39; PULSE 72; RESP 16; O2SAT 96; O2SAT 97
[2016-11-19] MEDS ORDERED: SENN-133 PO (15:23)
--- NOTE | 2016-11-19 15:39 | DRSVH ---
PROCEDURE: CT ABDOMEN AND PELVIS WITH CONTRAST ([id number]) INDICATIONS: LLQ pain TECHNIQUE: 5 mm thick sections acquired from the diaphragms to the symphysis. 5 mm thick coronal and sagittal r eformats were performed. For radiation dose reduction, the following was used: automated exposure c ontrol, adjustment of mA and/or kV according to patient size. COMPARISON: None. FINDINGS: Image quality: Excellent. Contrast is noted within the colon, appearing more dense than typically s een. This could represent residual barium from barium swallow completed on 11/11/16. ABDOMEN: Lung bases: There is a mild right pleural effusion with small superimposed area of consolidation. Solid organs: Liver liver appears nodular. There is an ill-defined area of low attenuation within th e anterior midportion measuring approximately 7 mm. The spleen is normal in size and enhancement. Ga llbladder has been. Biliary system is non-dilated. Pancreas enhances normally. No adrenal nodules. Kidneys are normal in size and enhancement, without hydronephrosis. Bilateral renal cysts are pres ent. Peritoneum and bowel: Stomach, small bowel, and colon loops are normal in caliber and wall thickness . No free fluid or air. Nodes and vessels: No retroperitoneal or mesenteric adenopathy. Aorta and inferior vena cava are no rmal in caliber. Miscellaneous: No ventral hernias. PELVIS: Genitourinary: Bladder is prominently distended. Miscellaneous: No inguinal hernias or adenopathy. Bones: No suspicious bony lesions. No vertebral body compression fractures. IMPRESSION: 1. No visualized acute cause of abdominal pain. 2. Colonic contrast opacification is noted as above suspected to be residual from slow passing barium from prior exam. 3. Prominently distended bladder. Dictated by: Nya Israel M.D. on 11/19/2016 at 15:33 Approved by: Nya Israel M.D. on 11/19/2016 at 15:38
[2016-11-19 16:01] VITALS: BP 133/73; PULSE 84; RESP 22; O2SAT 97
[2016-11-19 16:20] VITALS: BP 133/73; PULSE 84; RESP 22; O2SAT 97
[2016-11-19] MEDS ORDERED: HYDROcodone-APAP 5-325 mg Tablet PO ONE (17:15)
== END 2016-11-19 17:24 | disposition home or self-care (01) ==
LOC: SED 11:41
DX: K59.00 Constipation, unspecified (principal); D64.9 Anemia, unspecified; I10 Essential (primary) hypertension; E11.9 Type 2 diabetes mellitus without complications; I25.10 Atherosclerotic heart disease of native coronary artery without angina pectoris; J44.9 Chronic obstructive pulmonary disease, unspecified; Z86.73 Personal history of transient ischemic attack (TIA), and cerebral infarction without residual deficits; Z86.718 Personal history of other venous thrombosis and embolism; Z95.0 Presence of cardiac pacemaker; Z87.891 Personal history of nicotine dependence
CPT/HCPCS: 51701; 74177; 80053; 81000; 83605; 83690; 85025; 96361; 96374; 96375; 96376; 99285; J2270; J2405; J7030; Q9967

== ENCOUNTER 2016-11-30 05:12 | Emergency (ER) | payer MEDICARE ==
[~2016-11-30] VITALS: Ht 160 cm; Wt 90.9 kg
[2016-11-30] VITALS (14 sets, daily range): BP systolic 67–150; BP diastolic 27–97; PULSE 70–95; RESP 16–22; O2SAT 97–100
[~2016-11-30 05:12] MED LIST changes: +SENN-133 PO
--- NOTE | 2016-11-30 05:25 | ED.REPORT ---
HPI-Abd Pain F 40 and Over Date of Service Nov 30, 2016 ED Provider: Sesar Long MD Nursing Notes Stated Complaint: ABDOMINAL PAIN Chief Complaint: Female Abdominal Pain Nursing Notes Reviewed: Yes Allergies: Coded Allergies: Penicillins (Verified Allergy, Severe, Hives, facial swelling, 11/19/16) Scheduled Arformoterol Tartrate (Brovana) 15 Mcg/2 Ml Vial.neb 15 MCG IH BID Aspirin Chew (Aspirin Chew) 81 Mg Tablet 324 MG PO DAILY Budesonide Neb Soln (Budesonide Neb Soln) 0.5 Mg/2 Ml Neb 0.5 MG INHALATION BID Calcium Carbonate/Vitamin D3 (Calcium 600 + Vit D3 400 Tab) 600 Mg-400 Tablet 1 EACH PO DAILY Cetirizine HCl (Zyrtec) 10 Mg Capsule 10 MG PO QAM Cholecalciferol (Vitamin D3) (Vitamin D3) 2,000 Unit Tablet 2,000 UNIT PO QAM Famotidine (Famotidine) 20 Mg Tablet 20 MG PO BID Fluticasone Propionate (Flonase Allergy Relief) 50 Mcg/Actuation [place].susp 1 SPRAY NS DAILY Gabapentin (Gabapentin) 300 Mg Capsule 300 MG PO QAM Gabapentin (Gabapentin) 300 Mg Capsule 600 MG PO HS Levofloxacin (Levaquin) 750 Mg Tablet 750 MG PO DAILYAC Losartan Potassium (Losartan Potassium) 50 Mg Tablet 25 MG PO BID Multivitamin (Multivitamins) 1 Each Capsule 1 EACH PO QAM Pravastatin (Pravastatin) 40 Mg Tablet 20 MG PO HS Prednisone (Deltasone) 20 Mg Tablet 40 MG PO DAILY Propranolol HCl (Propranolol HCl) 20 Mg Tablet 40 MG PO BID Tiotropium [place] (Spiriva) 18 Mcg Cap.w.dev 18 MCG IH DAILY at 2PM Warfarin Sodium (Warfarin Sodium) 3 Mg Tablet 3 MG PO DAILY Scheduled PRN Albuterol HFA (Proair HFA) 8.5 Gm Hfa.aer.ad 2 PUFFS INHALATION Q4H PRN PRN For Shortness of Breath Albuterol Neb Soln (Albuterol Neb Soln) 2.5 Mg/3 Ml Vial.neb 2.5 MG INHALATION Q4H PRN PRN For Shortness of Breath Dimenhydrinate (Dramamine) 25 Mg Tab.chew 50 MG PO BID PRN PRN For Nausea Hydrocodone-Acetaminophen 5-325 mg (Hydrocodone-Acetaminophen 5-325 mg) 1 Each Tablet 1 TABLET PO Q6H PRN PRN For Pain Sennosides (Senna) 8.6 Mg Tablet 8.6 MG PO DAILY PRN PRN For Constipation Miscellaneous Medications Cyanocobalamin (Vitamin B-12) (Vitamin B-12) 500 Mcg Tab.subl 1,000 MCG SL General Time Seen by MD: 05:22 Past Medical History Past Medical History 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 Coronary artery disease. 2. Chronic obstructive pulmonary disease. 3. Diabetes mellitus, type 2. 4. TIA 2014 5. Hypertension 6. Hyperlipidemia 7. Essential tremor 8. 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 Pulmonary embolism Past Surgical History Pacemaker - 2006 Complete cardiac cath PTCA Reports: Appendectomy, Cholecystectomy, Tonsillectomy Reports: Tubal ligation Family History Noncontributory Smoking History Former Smoker Social History Alcohol Use: Denies alcohol use Drug Use: Denies drug use Other Social History: Lives alone, , Local resident Ambulatory Status Independent Physical Exam Vital Signs Vital Signs (First) Date Time Temp Pulse Resp B/P Pulse Ox O2 Delivery O2 Flow Rate FiO2 11/30/16 05:22 79 19 96/46 97 Nasal Cannula Interpretation & Diagnostics Lab Results Interpretation Test 11/30/16 05:10 11/30/16 05:16 Sesar Long MD Nov 30, 2016 05:25 Felisha Vázquez Nov 30, 2016 05:36
[2016-11-30 05:38] LABS: BASOPHILS % (AUTO) 0.2 % (0-3); EOSINOPHILS % (AUTO) 0.8 % (0-5); MONOCYTES % (AUTO) 15.8 % (4-12); Mean Corpuscular Hemoglobin 27.4 pg (27.0-35.0); Mean Corpuscular Volume 90.4 fL (81-100); NEUTROPHILS % (AUTO) 66.8 % (40-74); Platelet Count 174 bil/L (150-400)
[2016-11-30 05:48] LABS: Magnesium 2.7 mg/dL (1.6-2.6)
--- NOTE | 2016-11-30 06:01 | ED.REPORT ---
HPI-Abd Pain F 40 and Over Date of Service Nov 30, 2016 ED Provider: Justin Reveles MD The patient is an 86 year old female with history of coronary artery disease, COPD, diabetes mellitus type II, hypertension, hyperlipidemia, CVA in 2014, pulmonary embolism, and s/p appendectomy and cholecystectomy, who was brought to the emergency department by EMS complaining of ongoing abdominal cramping. The patient was admitted to this hospital from November 09- for a pulmonary embolism. She was discharged on Warfarin. This abdominal pain was present for a few days during her admission. It was thought to be related to constipation and she was given stool softeners. She was seen in the emergency department on November 19 for the same pain. She had a normal abdominal CT and was discharged home on stool softeners. She has not had a bowel movement in 5 days. She denies nausea, vomiting, diarrhea, fever, chills, dysuria or hematuria. Her daughters report that she is also on antibiotics for a bladder infection and pneumonia. The patient lives in a care home. Nursing Notes Stated Complaint: ABDOMINAL PAIN Chief Complaint: Female Abdominal Pain Nursing Notes Reviewed: Yes Allergies: Coded Allergies: Penicillins (Verified Allergy, Severe, Hives, facial swelling, 11/19/16) Scheduled Arformoterol Tartrate (Brovana) 15 Mcg/2 Ml Vial.neb 15 MCG IH BID Aspirin Chew (Aspirin Chew) 81 Mg Tablet 324 MG PO DAILY Budesonide Neb Soln (Budesonide Neb Soln) 0.5 Mg/2 Ml Neb 0.5 MG INHALATION BID Calcium Carbonate/Vitamin D3 (Calcium 600 + Vit D3 400 Tab) 600 Mg-400 Tablet 1 EACH PO DAILY Cetirizine HCl (Zyrtec) 10 Mg Capsule 10 MG PO QAM Cholecalciferol (Vitamin D3) (Vitamin D3) 2,000 Unit Tablet 2,000 UNIT PO QAM Famotidine (Famotidine) 20 Mg Tablet 20 MG PO BID Fluticasone Propionate (Flonase Allergy Relief) 50 Mcg/Actuation [place].susp 1 SPRAY NS DAILY Gabapentin (Gabapentin) 300 Mg Capsule 300 MG PO QAM Gabapentin (Gabapentin) 300 Mg Capsule 600 MG PO HS Levofloxacin (Levaquin) 750 Mg Tablet 750 MG PO DAILYAC Losartan Potassium (Losartan Potassium) 50 Mg Tablet 25 MG PO BID Multivitamin (Multivitamins) 1 Each Capsule 1 EACH PO QAM Pravastatin (Pravastatin) 40 Mg Tablet 20 MG PO HS Prednisone (Deltasone) 20 Mg Tablet 40 MG PO DAILY Propranolol HCl (Propranolol HCl) 20 Mg Tablet 40 MG PO BID Tiotropium [place] (Spiriva) 18 Mcg Cap.w.dev 18 MCG IH DAILY at 2PM Warfarin Sodium (Warfarin Sodium) 3 Mg Tablet 3 MG PO DAILY Scheduled PRN Albuterol HFA (Proair HFA) 8.5 Gm Hfa.aer.ad 2 PUFFS INHALATION Q4H PRN PRN For Shortness of Breath Albuterol Neb Soln (Albuterol Neb Soln) 2.5 Mg/3 Ml Vial.neb 2.5 MG INHALATION Q4H PRN PRN For Shortness of Breath Dimenhydrinate (Dramamine) 25 Mg Tab.chew 50 MG PO BID PRN PRN For Nausea Hydrocodone-Acetaminophen 5-325 mg (Hydrocodone-Acetaminophen 5-325 mg) 1 Each Tablet 1 TABLET PO Q6H PRN PRN For Pain Sennosides (Senna) 8.6 Mg Tablet 8.6 MG PO DAILY PRN PRN For Constipation Miscellaneous Medications Cyanocobalamin (Vitamin B-12) (Vitamin B-12) 500 Mcg Tab.subl 1,000 MCG SL General Time Seen by MD: 06:00 Chief Complaint Abdominal pain Hx Obtained From: Patient, Daughter, EMS Arrived By: Ambulance Sudden in Onset?: No Onset Occurred: More than a week ago... Symptom Duration: Since onset Progression since Onset: Constant, Gradually worsening Location: : Abdomen lower Quality: Cramping Radiation: : Does not radiate Severity: Current: Moderate Severity: Maximum: Severe Associated with: Reports: Constipation, Denies: Diarrhea, Nausea Pertinent Negative: Pt denies other symptoms Recent Healthcare: No recent doctor visit, No recent hospitalization Similar Sx Previous: No Past Medical History Past Medical History Notes: Manager Decision Support: Dr. Ferreira Past Medical History 1. Coronary artery disease. 2. Chronic obstructive pulmonary disease. 3. Diabetes mellitus, type 2. 4. TIA 2014 5. Hypertension 6. Hyperlipidemia 7. Essential tremor 8. 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 Pulmonary embolism Past Surgical History Pacemaker - 2006 Complete cardiac cath PTCA Reports: Appendectomy, Cholecystectomy, Tonsillectomy Reports: Tubal ligation Family History Noncontributory Smoking History Former Smoker Social History Currently living at [facility] Alcohol Use: Denies alcohol use Drug Use: Denies drug use Other Social History: Good social support, , Local resident Ambulatory Status Independent Review of Systems Constitutional: Denies: Chills, Fever GI: Reports: Abdominal pain, Constipation, Denies: Diarrhea, Nausea, Vomiting Complete sys rev & neg: except as marked. Physical Exam Vital Signs Vital Signs (First) Date Time Temp Pulse Resp B/P Pulse Ox O2 Delivery O2 Flow Rate FiO2 11/30/16 05:22 36.7 79 19 96/46 97 Nasal Cannula 11/30/16 07:00 4 Initial VS: Reviewed Head / Eyes: Atraumatic, Normocephalic, PERRL ENT: Mucous membranes moist, Conjunctiva normal, No scleral icterus Neck: Supple, Non-tender, Full range of motion Lymphatic: No lymphadenopathy Extremities: Vascular intact, Neuro intact, No swelling, No tenderness Skin: Warm, Dry, No cyanosis Neurologic: Alert, Oriented, Nonfocal Psychiatric: Mood/affect normal, Behavior normal, Normal thought content General/Constitutional: Awake, Alert, Cooperative Respiratory / Chest: Atraumatic, Breath sounds NL, Breath sounds = bilat, No respiratory distress, No rales, No rhonchi, No wheezing, No stridor Cardiovascular: Heart rate NL, Regular rhythm, Heart sounds NL, No murmurs, No rubs, Peripheral circulation NL Abdomen: Atraumatic, Soft, Non-tender, McBurney's non-tender, No guarding, No rebound, BS normoactive, No distention, No hernia, No palpable mass, No pulsatile mass Back: Atraumatic, Inspection NL, Full range of motion Rectum / Perineum: No gross blood Rectum / Perineum Abnl: Positive: Fecal impaction present Completed by Dr. Long Interpretation & Diagnostics Lab Results Interpretation Result Diagram: 11/30/16 0510 11/30/16 0510 Test 11/30/16 05:10 11/30/16 05:16 11/30/16 06:10 White Blood Count 5.2th/mm3 (3.8-10.1) Red Blood Count 3.43mil/mm3 (3.90-5.20) Hemoglobin 9.4g/dL (12.0-15.6) Hematocrit 31.0% (35.0-46.0) Mean Corpuscular Volume 90.4fL (81-100) Mean Corpuscular Hemoglobin 27.4pg (27.0-35.0) Mean Corpuscular Hemoglobin Concent 30.3% (32.0-37.0) Red Cell Distribution Width 17.3% (12.3-15.4) Platelet Count 174bil/L (150-400) Neutrophils (%) (Auto) 66.8% (40-74) Lymphocytes (%) (Auto) 16.0% (14-46) Monocytes (%) (Auto) 15.8% (4-12) Eosinophils (%) (Auto) 0.8% (0-5) Basophils (%) (Auto) 0.2% (0-3) Sodium Level 136mEq/L (134-144) Potassium Level 3.5mEq/L (3.5-5.2) Chloride Level 93mEq/L (97-108) Carbon Dioxide Level 33mmol/L (18-29) Blood Urea Nitrogen 17mg/dL (8-27) Creatinine 1.01mg/dL (0.57-1.00) Estimat Glomerular Filtration Rate 74mL/min (>59) Glucose Level 136mg/dL (60-99) Lactic Acid Level 1.6mmol/L (0.4-2.0) Calcium Level 8.4mg/dL (8.5-10.1) Magnesium Level 2.7mg/dL (1.6-2.6) Total Bilirubin 0.4mg/dL (0.0-1.2) Aspartate Amino Transf (AST/SGOT) 30U/L (0-50) Alanine Aminotransferase (ALT/SGPT) 17U/L (0-32) Alkaline Phosphatase 104U/L (25-165) Total Protein 6.0g/dL (6.4-8.4) Albumin 3.0g/dL (3.4-5.0) Lipase 24U/L (13-60) Hold Purple Top Tube Received (Received) Prothrombin Time 19.5sec (8.1-12.5) Prothromb Time International Ratio 1.80ratio Hold Blue Top Tube Received (Received) Hold Red Top Tube Received (Received) Hold [place] Top Tube Received (Received) Hold Chan Top Tube Received (Received) Hold Urine Received (Received) ECG Interpretation ECG Interpretation: Paced rhythm Rate: 71 Time: 05:18 Interpreted by: ED physician Re-Eval/Medical Decision Med Decision/Clinical Course treatment specialist came by to look at the wounds and was not overly concerned. I did discuss the case with Dr. Gifford who will make sure the skin team at [facility] is watching her carefully. He will also prescribed a more definitive bowel cleanse. Source of Hx: Old records, Family Re-Evaluation/Progress #1: Time of Eval: 08:15 Re-Evaluation/Progress Note: The patient was given an enema but has not yet had a bowel movement. Re-Evaluation/Progress #2: Time of Eval: 10:00 Re-Evaluation/Progress Note: The patient has passed a small amount of stool. Re-Evaluation/Progress #3: Time of Eval: 10:35 Re-Evaluation/Progress Note: The patient is still complaining of pain. Re-Evaluation/Progress #4: Time of Eval: 10:40 Re-Evaluation/Progress Note: Rechecked the patient. She has not passed a significant amount of stool at this point. Discussed plan for rectal exam and attempt to remove stool impaction. She agrees with plan. On re-examination there is a moderate amount of liquid stool leaking from the rectum. I was able to remove several hard pieces of stool from the rectal vault. Re-Evaluation/Progress #5: Time of Eval: 12:53 Re-Evaluation/Progress Note: Rechecked the patient. She is feeling better. Her daughter mentions that the patient has sores developing on her buttocks. Re-Evaluation/Progress #6: Re-Evaluation/Progress Note: On re-examination the patient has . Discussed plan for discharge. All questions were addressed. Consultation #1: Referral / Consult Name: Jayce Gifford MD Consulted With: Primary care physician Call Returned at: 13:40 Note: Spoke with Dr. Gifford's assistant import manager who will have Dr. Gifford call back. Consultation #2: Referral / Consult Name: Jayce Gifford MD Consulted With: Primary care physician Call Returned at: 13:46 Checker In: Will see in office, Agrees with eval, Agrees with plan Note: Discussed the patient's case with Dr. Gifford. He agrees with plan for the patient to be discharged back to [facility]. Counseled Regarding: Diagnosis, Lab results, Need for follow-up, When/why to return to ED Discharge & Departure Primary Impression: Fecal impaction Additional Impressions: Constipation Constipation type: unspecified constipation type Qualified Code: K59.00 - Constipation, unspecified Bed sore Pressure ulcer stage: unspecified pressure ulcer stage Qualified Code: L89.90 - Pressure ulcer of unspecified site, unspecified stage Disposition: Home Discharge Condition All VS Reviewed: Yes Condition: Stable Patient Instructions: Constipation (ED) Additional Instructions: Thank you for entrusting us with your care today. I think that it is safe for you to be at [facility]. I believe your pain is related to a stool impaction and constipation. Narcotic pain medication can cause constipation. Try to only take the narcotic pain medication when necessary. Dr. Gifford will prescribe magnesium citrate to clear out the rest of the stool. Hold off on taking your blood pressure medication until you need them again (blood pressure greater than 130 systolic.) [address] Gifford next week for re-valuation. Please return to the emergency department for increased abdominal pain, vomiting, fever , chills, or any other new or concerning symptoms. Referrals: Jayce Gifford MD (PCP) Scribe Attestation Portions of this note were transcribed by Rachel Redmond. I, Dr. Revlees personally performed the history, physical exam and medical decision-making; I reviewed and confirmed the accuracy of the information in the transcribed note. Signed by: Reji Wright, 11/30/3016 and 1405. copies to: Jayce Gifford MD, Kirk H MD Nov 30, 2016 06:01 Rachel Redmond Nov 30, 2016 06:17
[2016-11-30] MEDS ORDERED: Ondansetron 2 mg/mL 2 mL Inj IVPUSH ONE (06:40)
[2016-11-30] MEDS ORDERED: HYDROmorphone 0.5 mg/0.5 mL iSecure Syringe IVPUSH ONE ×2 (06:40→08:25)
[2016-11-30] MEDS ORDERED: Ketorolac 15 mg/mL Inj IVPUSH ONE (06:40)
[2016-11-30 06:54] LABS: INR 1.8 ratio
[2016-11-30] MEDS ORDERED: 0.9% Sodium Chloride 1,000 ML IV ONE (11:30)
[2016-11-30] MEDS ORDERED: Albuterol-Ipratropium 3 mL Inhalation Solution NEB ONE (11:50)
== END 2016-11-30 15:33 | disposition home or self-care (01) ==
LOC: SED 05:12
DX: K56.41 Fecal impaction (principal); L89.300 Pressure ulcer of unspecified buttock, unstageable; N30.90 Cystitis, unspecified without hematuria; J18.9 Pneumonia, unspecified organism; I11.9 Hypertensive heart disease without heart failure; E11.59 Type 2 diabetes mellitus with other circulatory complications; I25.10 Atherosclerotic heart disease of native coronary artery without angina pectoris; J44.9 Chronic obstructive pulmonary disease, unspecified; E78.5 Hyperlipidemia, unspecified; Z86.73 Personal history of transient ischemic attack (TIA), and cerebral infarction without residual deficits; Z95.0 Presence of cardiac pacemaker; Z95.5 Presence of coronary angioplasty implant and graft; Z79.82 Long term (current) use of aspirin; Z79.01 Long term (current) use of anticoagulants; Z87.891 Personal history of nicotine dependence; Z88.0 Allergy status to penicillin
CPT/HCPCS: 36415; 80053; 83605; 83690; 83735; 85025; 85610; 93005; 96361; 96374; 96375; 96376; 99285; J1170; J1885; J7030; J7620